=== PATIENT | male | born 1945 | race Hispanic/Latino ===

== ENCOUNTER 2017-11-10 14:09 | Emergency (ER) | payer MEDICARE, BC | END 2017-11-10 15:55 | disposition home or self-care (01) | LOC: ERS 14:09 | DX: T39.011A Poisoning by aspirin, accidental (unintentional), initial encounter (principal); T44.7X1A Poisoning by beta-adrenoreceptor antagonists, accidental (unintentional), initial encounter; T40.2X1A Poisoning by other opioids, accidental (unintentional), initial encounter; I48.91 Unspecified atrial fibrillation; F17.210 Nicotine dependence, cigarettes, uncomplicated; Z86.73 Personal history of transient ischemic attack (TIA), and cerebral infarction without residual deficits; Z79.82 Long term (current) use of aspirin; Z79.01 Long term (current) use of anticoagulants; Z79.899 Other long term (current) drug therapy | CPT/HCPCS: 99406 ==

== ENCOUNTER 2018-02-14 13:46 | Outpatient (CLI) | payer MEDICARE, BC | END 2018-02-14 13:47 | disposition home or self-care (01) | LOC: BICCT 13:46 | PROVIDERS: ATTEND Family Medicine | DX: M54.5 Low back pain; M47.26 Other spondylosis with radiculopathy, lumbar region; I70.90 Unspecified atherosclerosis | CPT/HCPCS: 72131 ==

== ENCOUNTER 2018-03-04 15:28 | Outpatient (CLI) | payer MEDICARE, BC ==
--- NOTE | 2018-03-04 16:10 | RAD ---
LUMBAR SPINE 3 VIEWS: Date: 03/04/18 HISTORY: Low back pain. COMPARISON: None. FINDINGS: Lateral radiographs of the lumbar spine were performed in neutral, flexion, and extension. Moderate d egenerative disc space height loss at L4-5 and L5-S1. Chronic-appearing anterior and superior end carolin te height loss at L3, approximately 10%. No significant listhesis. No translation with flexion or extension. Moderate intraspinous narrowing at L3-4 and L4-5. Moderate vascular calcifications of the aorta. IMPRESSION: Degenerative changes. No significant translation with flexion or extension. POS: [facility]
== END 2018-03-04 15:29 | disposition home or self-care (01) ==
LOC: TBSIIMAG 15:28
PROVIDERS: ATTEND Neurological Surgery
DX: M54.5 Low back pain (principal); M47.896 Other spondylosis, lumbar region
CPT/HCPCS: 72100

== ENCOUNTER 2018-10-08 07:56 | Observation (INO) | payer MEDICARE, BC ==
[2018-10-08 08:45] LABS: #Basophils 0.1 thou/uL (0.0-0.2); #Eosinphils 0.2 thou/uL (0.0-0.7); #Monocytes 0.4 thou/uL (0.11-0.59); #Neutrophils 4.3 thou/uL (1.40-6.50); %Basophils 0.8 % (0.0-1.0); %Eosinophils 2.2 % (0.0-10.0); %Lymphocytes 29.5 % (21.0-51.0); %Monocytes 5.3 % (0.0-10.0); %Neutrophils 62.2 % (42.0-75.0); Hemoglobin 13.6 g/dL (14.0-18.0); Mean Corpuscular HGB CONC 33.2 g/dL (32.0-36.0); Mean Corpuscular Hemoglobin 31.6 pg (27.0-31.0); Mean Corpuscular Volume 95.2 fL (78.0-98.0); Platelet Count 94 thou/uL (130-400); RBC Distribution Width 12.8 % (11.5-14.5); RBC Morphology Normal; Red Blood Cell (RBC) Count 4.31 mill/uL (4.70-6.10); White Blood Cell (WBC) Count 6.8 thou/uL (4.8-10.8)
[2018-10-08 08:46] LABS: ALT (SGPT) 19 U/L (8-55); AST (SGOT) 20 U/L (5-34); Alkaline Phosphatase 65 U/L (40-150); Anion Gap 12 mmol/L (10-20); BUN (Urea Nitrogen) 12 mg/dL (8.4-25.7); Bilirubin, Total 0.8 mg/dL (0.2-1.2); Calc. Creatinine Clearance 0 mL/min (70-130); Calcium 8.8 mg/dL (7.8-10.44); Carbon Dioxide 22 mmol/L (23-31); Chloride 108 mmol/L (98-107); Estimated GFR-MDRD 84; Globulin 2.9 g/dL (2.4-3.5); Glucose 132 mg/dL (83-110); Potassium 3.8 mmol/L (3.5-5.1); Protein, Total 6.9 g/dL (5.8-8.1); Sodium 138 mmol/L (136-145)
[2018-10-08 08:49] LABS: CKMB 2.7 ng/mL (0-6.6); Troponin I 0.026 ng/mL (< 0.028)
--- NOTE | 2018-10-08 09:05 | RAD ---
PORTABLE CHEST ONE VIEW: Date: 10-08-18 Time: 8:34 a.m. History: Shortness of breath. FINDINGS: Comparison made with exam of 04-21-15. Left sided AICD remains in place. The heart size is normal. The lungs are expanded with mild infiltra orlando in the right lung base. No pneumothoraces or large effusions are seen. POS: [facility]
[2018-10-08] MEDS ORDERED: methylPREDNISolone Sod Succ/PF 125 MG/2 ML VIAL ONE (10:02)
[2018-10-08 11:18] LABS: Troponin I 0.031 ng/mL (< 0.028)
[2018-10-08 14:34] LABS: Troponin I 0.017 ng/mL (< 0.028)
[2018-10-08 16:40] VITALS: BMI 25.7
[2018-10-08] MEDS ORDERED: Acetaminophen 325 MG TAB PO PRN (16:57)
[2018-10-08] MEDS ORDERED: Ondansetron ODT 4 MG TAB PO PRN (17:25)
[2018-10-08] MEDS ORDERED: Ondansetron PF 4 MG/2 ML Vial IVP PRN (17:25)
[2018-10-08] MEDS: Famotidine 20 MG TAB PO SCH (20:16)
[2018-10-08] MEDS: Nicotine 21 MG PATCH TD SCH (20:20)
[2018-10-08] MEDS ORDERED: Prevnar 13-Val Conj/PF 0.5 ML SYRINGE IM ONE (21:00)
--- NOTE | 2018-10-09 04:29 | HP ---
CHIEF COMPLAINT: Dyspnea and elevated troponin. HISTORY OF PRESENT ILLNESS: Mr. Bermudez is a pleasant 73-year-old male, who had presented to [facility] with a past medical history of atrial fibrillation with an AICD placement, chronic back pain, and previous history of CVA, who complains of shortness of breath that started earlier this morning when he was putting on the shoes. The patient has a 58-[id number]-ainw smoking history, who still continues to smoke 1-1/2 packs per day. He denies any cough, fever, chills, or recent illness. He denied chest pain. However, during his workup in the ER, his serial troponins were 0.026 with the next reading being elevated at 0.031. His EKG read as paced rhythm with a rate of 83 with no acute abnormalities for ischemia. His chest x-ray showed left-sided AICD with normal heart size, the lungs are expanded with mild infiltrates in the right lung base. No pneumothorax or large effusion seen. He had O2 saturations of 94% on room air. With his elevated troponin, it was ultimately decided that he would undergo further workup for his symptoms of shortness of breath, he was admitted to our telemetry for further evaluation and monitoring. PAST MEDICAL HISTORY: Positive for atrial fibrillation, AICD placement, chronic back pain, and previous CVA. FAMILY HISTORY: No history for heart disease. PAST SURGICAL HISTORY: Bilateral knee surgery, AICD placement. PSYCHIATRIC HISTORY: Denies any psychiatric history at this time. SOCIAL HISTORY: Denies any alcohol use; however, does admit to 1-1/2 packs per day cigarette smoker, denies any other drug use. ALLERGIES: NO KNOWN DRUG ALLERGIES. CURRENT MEDICATIONS: 1. Atorvastatin 20 mg p.o. daily. 2. Warfarin 5 mg p.o. daily. 3. Carvedilol 25 mg oral daily. REVIEW OF SYSTEMS: CONSTITUTIONAL: No fever, chills, or any generalized weakness. RESPIRATORY: No cough or sputum production, shortness of breath this morning, however, this has since improved. CARDIOVASCULAR: No chest pain or palpitations. GASTROINTESTINAL: No nausea, vomiting, or diarrhea. No abdominal pain. NEUROLOGIC: No dizziness, headache, or lightheadedness. GENITOURINARY: No frequency, urgency, or dysuria. MUSCULOSKELETAL: No edema. No trauma. No weakness. Does report previous partial amputation of right second digit from a bull lashing. LABORATORY DATA: WBC 6.8, RBC 4.31, hemoglobin 13.6, and platelet count 94. Sodium 138, potassium 3.8, creatinine 0.88. Estimated GFR 84. Glucose 132. AST 20, ALT 19, alkaline phosphatase 65. CK-MB 2.7. Troponin 0.026, 0.031, and 0.017. DIAGNOSTIC IMAGING: Chest x-ray showed lungs expanded, mild infiltrates in the right lung base, no pneumothorax or large effusion noted. PHYSICAL EXAMINATION: VITAL SIGNS: Blood pressure 137/84, pulse 84, respirations 20, temperature 97.6, and O2 saturation 94% on room air. GENERAL: The patient is alert and oriented x3, in no acute distress noted. HEENT: Head is atraumatic, normocephalic. Pupils equal and reactive to light. Extraocular muscles intact. Moist mucous membranes. NECK: Soft, supple. No bruits. No JVD noted. CARDIOVASCULAR: Normal rate and rhythm. Positive S1 and S2. No murmurs or gallops noted. RESPIRATORY: Scattered expiratory wheezes throughout with diminished breath sounds at the bases. No cough. ABDOMEN: Soft, nontender. Normal bowel sounds present. MUSCULOSKELETAL: Strength 5+ bilaterally, right index finger with partial amputation at DIP. SKIN: Warm, dry, and intact. No rashes. No redness noted. NEUROLOGIC: Cranial nerves 2 through 12 intact. No focal deficits noted. Strength 5+ bilaterally in upper and lower extremities. PSYCHIATRIC: Normal mood and affect. Optimal judgement. ASSESSMENT AND PLAN: 1. Dyspnea, likely secondary to chronic obstructive pulmonary disease from past history of smoking. He had received a dose of IV Solu-Medrol in the ER along with a DuoNeb treatment. We will likely continue symptomatic treatments with DuoNebs as needed. The patient remains at baseline. He is also afebrile with a normal white count. No further antibiotics needed at this time. We will monitor the patient's progress and further changes pending patient's progress. 2. Elevated troponin, this is likely a possible lab error; however, due to the patient's risk factors along with his shortness of breath, we will order a stress test to rule out cardiac etiology. 3. Atrial fibrillation, he is stable at this time, continue home dose of warfarin and monitor PT and INR. Further changes pending INR. 4. Hypertension. Continue carvedilol 25 mg p.o. daily. Monitor vital signs closely. 5. Hyperlipidemia. Continue atorvastatin 20 mg p.o. daily. 6. Nicotine dependence, further education given for smoking cessation. We will start the patient on nicotine patch during the hospital course. 7. Gastrointestinal prophylaxis with home dose of warfarin, gastrointestinal prophylaxis with Pepcid 20 mg p.o. b.i.d. along with Zofran as needed for nausea. Disposition and further medical management pending the patient's workup and results of stress test. The patient likely discharged within 24 to 48 hours. Job ID: [id number]
[2018-10-09 06:41] LABS: INR-International Normal Ratio 3.5; PTT 47.6 SEC (22.9-36.1)
[2018-10-09 06:59] LABS: Anion Gap 10 mmol/L (10-20); BUN (Urea Nitrogen) 13 mg/dL (8.4-25.7); Calc. Creatinine Clearance 105 mL/min (70-130); Calcium 8.8 mg/dL (7.8-10.44); Carbon Dioxide 22 mmol/L (23-31); Chloride 109 mmol/L (98-107); Estimated GFR-MDRD Greater than 90; Glucose 134 mg/dL (83-110); Potassium 4.2 mmol/L (3.5-5.1); Sodium 137 mmol/L (136-145)
[2018-10-09 07:34] LABS: Hemoglobin 12.8 g/dL (14.0-18.0); Mean Corpuscular HGB CONC 33.7 g/dL (32.0-36.0); Mean Corpuscular Volume 95.2 fL (78.0-98.0); Mean Platelet Volume 11.2 fL (7.4-10.4); Platelet Count 89 thou/uL (130-400); RBC Distribution Width 12.7 % (11.5-14.5); Red Blood Cell (RBC) Count 3.99 mill/uL (4.70-6.10); White Blood Cell (WBC) Count 8.9 thou/uL (4.8-10.8)
[2018-10-09 07:50] LABS: #Lymphocytes 1.3 thou/uL (1.20-3.40); #Monocytes 0.6 thou/uL (0.11-0.59); %Basophils 0.2 % (0.0-1.0); %Eosinophils 0.2 % (0.0-10.0); %Lymphocytes 14.3 % (21.0-51.0); %Monocytes 6.3 % (0.0-10.0); PLT Morphology Comment Appears Decreased
[2018-10-09] MEDS ORDERED: Carvedilol 25 MG TAB PO SCH (09:00)
[2018-10-09] MEDS: Atorvastatin Calcium 20 MG TAB PO SCH (12:59)
[2018-10-09] MEDS: Famotidine 20 MG TAB PO SCH ×2 (12:59→20:54)
--- NOTE | 2018-10-09 14:14 | NM ---
NUCLEAR MEDICINE CARDIAC MYOCARDIAL PERFUSION SPECT EJECTION FRACTION STUDY WALL MOTION CINE: Date: 10/09/18 HISTORY: 73-year-old male with history of atrial fibrillation and smoking, presents with dyspnea and elevated troponin. TECHNIQUE: Number of days: 1 Rest study: Tc99m sestamibi (Cardiolite) dose: 11.0 mCi Pharmacologic stress: Lexiscan dose: 0.4 mg Stress study: Tc99m sestamibi (Cardiolite) dose: 32.0 mCi FINDINGS: CARDIAC (MYOCARDIAL PERFUSION) SPECT There is left ventricular chamber dilation. There is a large, fixed region of decreased or absent upt marcie involving the inferior wall involving adjacent inferomedial wall, inferolateral wall, and apex. N o reversible perfusion defect is visualized. EJECTION FRACTION STUDY EF = 20% WALL MOTION CINE Global hypokinesis, especially the inferior wall. Poor systolic mural thickening. IMPRESSION: 1. Large infarction/scar at inferior wall. 2. Left ventricular chamber dilation. 3. Very low left ventricular ejection fraction of 20%. 4. No reversible ischemia identified. DU Enriquez POS: [facility]
--- NOTE | 2018-10-09 14:17 | STRESS ---
Acquisition Time: 2018-10-09 09:18:08 Total Exercise Time: 00:01:00 Test Indications: SHORTNESS OF BREATH Medications: Protocol: LEXISCAN Max HR: 096 BPM 66% of Pred: 145 BPM Max BP: 122/070 mmHG Max Work Load: 1.0 METS THE PATIENT WAS INJECTED WITH LEXISCAN. HE DID NOT DEVELOP CHEST PAIN. THERE WAS NO SIGNIFICANT ST DEPRESSION. AWAIT NUCLEAR IMAGES FOR DEFINITIVE DIAGNOSIS. Confirmed by CONSUELO BURR ([id number]), photography editor ANGELIC SHARMA ([id number]) on 10/09/2018 2:16:34 PM Referred By: SHLOMO METZ Confirmed By:CONSUELO BURR
[2018-10-09] MEDS ORDERED: Regadenoson 0.4 MG/5 ML SYRINGE ONE (15:25)
--- NOTE | 2018-10-09 16:08 | PDOC.PN ---
- Subjective Encounter Start Date: 10/09/18 Encounter Start Time: 11:00 Patient lying in bed with several family members, No events over night. He denies chest pain or shortness of breath. Stress test was done this morning and results show EF 20% with global hypokenesis. There was also a large inferior infarction/ scar noted, but no reversible defect noted. - Objective Resuscitation Status - Order Detail: 10/08/18 17:25 Resuscitation Status Routine Co-Sign Provider: Resuscitation Status: FULL: Full Resuscitation MAR Reviewed: Yes Vital Signs & Weight: Vital Signs (12 hours) Temp Pulse Resp BP Pulse Ox 10/09/18 07:17 98.0 F 79 20 100/67 94 L Weight Weight 195 lb 4.8 oz I&O: 10/08/18 10/09/18 10/10/18 06:59 06:59 06:59 Intake Total 780 Output Total 300 Balance 480 Result Diagrams: 10/09/18 06:00 10/09/18 06:00 Radiology Reviewed by me: Yes Phys Exam - Physical Examination Constitutional: NAD HEENT: PERRLA, moist MMs, oral pharynx no lesions Neck: no nodes, no JVD Respiratory: no wheezing Course breath sounds Cardiovascular: RRR, no rub Gastrointestinal: soft, non-tender, no distention Musculoskeletal: no edema, pulses present Distal right index finger amputation noted Neurological: moves all 4 limbs Lymphatic: no nodes Psychiatric: normal affect, A&O x 3 Skin: no rash, normal turgor, cap refill <2 seconds Dx/Plan (1) COPD (chronic obstructive pulmonary disease) Status: Acute (2) Systolic heart failure Code(s): I50.20 - UNSPECIFIED SYSTOLIC (CONGESTIVE) HEART FAILURE Status: Acute (3) Hypertension Code(s): I10 - ESSENTIAL (PRIMARY) HYPERTENSION Status: Acute (4) Atrial fibrillation Code(s): I48.91 - UNSPECIFIED ATRIAL FIBRILLATION Status: Acute - Plan cont current plan of care * Continue medical management, Stress test reviewed with patient consult placed for Cardiology services for further evaluation * Hold discharge and await cardiology recommendations * INR 3.5, will hold warfarin for now considering cardiology may want to cath patient * Further medical management pending patient progress
[2018-10-09] MEDS ORDERED: Warfarin Sodium 5 MG TAB PO SCH ×2 (17:00)
[2018-10-09] MEDS ORDERED: Warfarin Sodium 2 MG TAB PO SCH (17:00)
[2018-10-09] MEDS: Carvedilol 25 MG TAB PO SCH (17:35)
[2018-10-09] MEDS: Nicotine 21 MG PATCH TD SCH (20:54)
[2018-10-10 08:18] LABS: INR-International Normal Ratio 2.6; Prothrombin Time 27.6 SEC (12.0-14.7)
[2018-10-10] MEDS: Famotidine 20 MG TAB PO SCH ×2 (09:41→20:54)
[2018-10-10] MEDS: Digoxin 0.25 MG TAB PO SCH (09:42)
[2018-10-10] MEDS: Finasteride 5 MG TAB PO SCH (09:42)
[2018-10-10] MEDS: Atorvastatin Calcium 20 MG TAB PO SCH (09:42)
[2018-10-10] MEDS: Carvedilol 25 MG TAB PO SCH ×2 (09:42→17:13)
[2018-10-10] MEDS: Lisinopril 2.5 MG TAB PO SCH (09:42)
[2018-10-10] MEDS ORDERED: Warfarin Sodium 5 MG TAB PO SCH (17:00)
--- NOTE | 2018-10-10 17:04 | PDOC.PN ---
- Subjective Encounter Start Date: 10/10/18 Encounter Start Time: 11:00 Patient lying in bed with several family members at bedside. He denies chest pain, shortness of breath. Cardiology services following and awaiting history from Dr Martinez and YANIRA. He admits to noncompliance with medication at home. 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 - Objective Resuscitation Status - Order Detail: 10/08/18 17:25 Resuscitation Status Routine Co-Sign Provider: Resuscitation Status: FULL: Full Resuscitation MAR Reviewed: Yes Vital Signs & Weight: Vital Signs (12 hours) Temp Pulse Resp BP BP Pulse Ox 10/10/18 15:38 98.1 F 83 16 105/72 98 10/10/18 11:18 97.8 F 90 16 106/69 96 10/10/18 07:18 97.5 F L 96 20 149/84 H 98 10/10/18 05:13 87 18 103/68 96 Weight Weight 195 lb 4.8 oz I&O: 10/09/18 10/10/18 10/11/18 06:59 06:59 06:59 Intake Total 780 1700 Output Total 300 Balance 480 1700 Result Diagrams: 10/09/18 06:00 10/09/18 06:00 Radiology Reviewed by me: Yes Phys Exam - Physical Examination Constitutional: NAD HEENT: PERRLA, moist MMs, sclera anicteric, oral pharynx no lesions Edentulous Neck: no nodes, no JVD, supple Respiratory: no wheezing, no rales, clear to auscultation bilateral Cardiovascular: no significant murmur, no rub Gastrointestinal: soft, non-tender, no distention, positive bowel sounds Musculoskeletal: no edema, pulses present Amputation of distal end of right index Neurological: non-focal, normal sensation, moves all 4 limbs Lymphatic: no nodes Dx/Plan (1) COPD (chronic obstructive pulmonary disease) Status: Acute (2) Systolic heart failure Code(s): I50.20 - UNSPECIFIED SYSTOLIC (CONGESTIVE) HEART FAILURE Status: Acute (3) Hypertension Code(s): I10 - ESSENTIAL (PRIMARY) HYPERTENSION Status: Acute (4) Atrial fibrillation Code(s): I48.91 - UNSPECIFIED ATRIAL FIBRILLATION Status: Acute - Plan cont current plan of care, plan discussed w/ family * Continue medical management, he was started on ACEfor optimal treatment. * Monitor vitals and labs * Cardiology services following, await records
[2018-10-10] MEDS: Nicotine 21 MG PATCH TD SCH (20:54)
[2018-10-11] MEDS: Lisinopril 2.5 MG TAB PO SCH (09:07)
[2018-10-11] MEDS: Finasteride 5 MG TAB PO SCH (09:07)
[2018-10-11] MEDS: Famotidine 20 MG TAB PO SCH (09:10)
[2018-10-11] MEDS: Atorvastatin Calcium 20 MG TAB PO SCH (09:11)
[2018-10-11] MEDS: Digoxin 0.25 MG TAB PO SCH (09:11)
[2018-10-11] MEDS: Carvedilol 25 MG TAB PO SCH (09:33)
[2018-10-11] MEDS ORDERED: Carvedilol 3.125 MG TAB PO SCH ×2 (10:00→17:00)
[2018-10-11 11:41] VITALS: BP 110/69; TEMP 98.1
--- NOTE | 2018-10-12 14:59 | EKG ---
Test Reason : Blood Pressure : / mmHG Vent. Rate : 083 BPM Atrial Rate : 072 BPM P-R Int : 000 ms QRS Dur : 132 ms QT Int : 408 ms P-R-T Axes : 000 -43 136 degrees QTc Int : 479 ms Ventricular-paced rhythm Abnormal ECG Confirmed by ANAND CAM ([id number]), technical writer and editor ALONDRA FERNANDES ([id number]) on 10/12/2018 2:58:40 PM Referred By: Confirmed By:ANAND CAM
== END 2018-10-11 15:47 | disposition home or self-care (01) ==
LOC: ERS 07:56 → ERHOLD 12:03 → 2SW 16:17
PROVIDERS: ADMIT Family Medicine; ATTEND Family Medicine
DX: R06.02 Shortness of breath (principal); R79.89 Other specified abnormal findings of blood chemistry; G89.29 Other chronic pain; M54.9 Dorsalgia, unspecified; F17.210 Nicotine dependence, cigarettes, uncomplicated; J44.9 Chronic obstructive pulmonary disease, unspecified; E78.5 Hyperlipidemia, unspecified; I11.0 Hypertensive heart disease with heart failure; I50.20 Unspecified systolic (congestive) heart failure; I48.91 Unspecified atrial fibrillation; Z95.810 Presence of automatic (implantable) cardiac defibrillator; Z86.73 Personal history of transient ischemic attack (TIA), and cerebral infarction without residual deficits; Z79.01 Long term (current) use of anticoagulants; Z79.82 Long term (current) use of aspirin; Z79.899 Other long term (current) drug therapy; Z91.14 Patient's other noncompliance with medication regimen
CPT/HCPCS: 71045; 78452; 80048; 80053; 82553; 84484 ×2; 85025 ×2; 85610 ×2; 85730; 90662; 90670; 93005; 93017; 94640; 96374; 99285; A9500; G0008; G0009; G0378 ×3; 36415; 90471; J2785; J2930; J7620

== ENCOUNTER 2018-11-06 20:42 | Observation (INO) | payer MEDICARE, BC ==
[2018-11-06 21:26] LABS: INR-International Normal Ratio 2.7; PTT 47.4 SEC (22.9-36.1)
[2018-11-06 21:27] LABS: D-Dimer Test 0.63 *mcg/mL (0.27-0.43)
--- NOTE | 2018-11-06 21:34 | RAD ---
SINGLE VIEW OF THE CHEST: 11/06/18 COMPARISON: 10/08/18 HISTORY: Shortness of breath. FINDINGS: Single view of the chest shows a cardiomediastinal silhouette which is upper limits of normal in size . The pacemaker is unchanged in position. There is no evidence of consolidation, mass, or pleural eff usion. Decreased interstitial markings are present. IMPRESSION: No evidence of acute cardiopulmonary disease. POS: [facility]
[2018-11-06 21:38] LABS: Hemoglobin 13.2 g/dL (14.0-18.0); Mean Corpuscular HGB CONC 33.8 g/dL (32.0-36.0); Mean Corpuscular Hemoglobin 31.9 pg (27.0-31.0); Mean Corpuscular Volume 94.3 fL (78.0-98.0); Mean Platelet Volume 10.9 fL (7.4-10.4); Platelet Count 101 thou/uL (130-400); RBC Distribution Width 12.6 % (11.5-14.5); Red Blood Cell (RBC) Count 4.14 mill/uL (4.70-6.10); White Blood Cell (WBC) Count 5.9 thou/uL (4.8-10.8)
[2018-11-06 21:46] LABS: ALT (SGPT) 16 U/L (8-55); AST (SGOT) 23 U/L (5-34); Alkaline Phosphatase 64 U/L (40-150); Anion Gap 10 mmol/L (10-20); BUN (Urea Nitrogen) 20 mg/dL (8.4-25.7); Bilirubin, Total 0.4 mg/dL (0.2-1.2); Calc. Creatinine Clearance 0 mL/min (70-130); Calcium 8.7 mg/dL (7.8-10.44); Carbon Dioxide 25 mmol/L (23-31); Chloride 107 mmol/L (98-107); Estimated GFR-MDRD 75; Globulin 3.1 g/dL (2.4-3.5); Glucose 101 mg/dL (83-110); Potassium 4.1 mmol/L (3.5-5.1); Protein, Total 7.1 g/dL (5.8-8.1); Sodium 138 mmol/L (136-145)
[2018-11-06 21:48] LABS: #Eosinphils 0.2 thou/uL (0.0-0.7); #Lymphocytes 2.2 thou/uL (1.20-3.40); #Monocytes 0.4 thou/uL (0.11-0.59); #Neutrophils 3.1 thou/uL (1.40-6.50); %Basophils 0.7 % (0.0-1.0); %Eosinophils 3.2 % (0.0-10.0); %Lymphocytes 37.8 % (21.0-51.0); %Monocytes 6.3 % (0.0-10.0); PLT Morphology Comment Appears Decreased
[2018-11-06] MEDS ORDERED: Aspirin 325 MG TAB ONE (23:11)
[2018-11-06] MEDS ORDERED: Furosemide 40 MG/4 ML VIAL ONE (23:11)
[2018-11-07 01:07] LABS: Troponin I 0.028 ng/mL (< 0.028)
[2018-11-07] MEDS ORDERED: Ondansetron ODT 4 MG TAB SL PRN (01:15)
[2018-11-07] MEDS ORDERED: Ondansetron PF 4 MG/2 ML Vial IVP PRN (01:15)
[2018-11-07] MEDS ORDERED: Acetaminophen 325 MG TAB PO PRN (01:15)
[2018-11-07 01:52] VITALS: BMI 26.3
[2018-11-07] MEDS ORDERED: Guaifenesin DM 100-10/5 ML UDCUP PO PRN (03:08)
[2018-11-07] MEDS ORDERED: Bisacodyl 5 MG TAB PO PRN (03:08)
[2018-11-07] MEDS ORDERED: Senokot S 8.6-50 MG TAB PO PRN (03:08)
[2018-11-07] MEDS: Furosemide 40 MG/4 ML VIAL SLOW IVP SCH ×2 (05:10→13:41)
[2018-11-07 05:37] LABS: #Basophils 0.1 thou/uL (0.0-0.2); #Eosinphils 0.2 thou/uL (0.0-0.7); #Lymphocytes 2.3 thou/uL (1.20-3.40); #Monocytes 0.4 thou/uL (0.11-0.59); #Neutrophils 3.5 thou/uL (1.40-6.50); %Eosinophils 3.1 % (0.0-10.0); %Lymphocytes 34.9 % (21.0-51.0); %Monocytes 6.6 % (0.0-10.0); %Neutrophils 54.4 % (42.0-75.0); Hemoglobin 13.2 g/dL (14.0-18.0); Mean Corpuscular HGB CONC 33.8 g/dL (32.0-36.0); Mean Corpuscular Hemoglobin 31.7 pg (27.0-31.0); Mean Corpuscular Volume 93.6 fL (78.0-98.0); Mean Platelet Volume 11.6 fL (7.4-10.4); PLT Morphology Comment Appears Decreased; Platelet Count 94 thou/uL (130-400); RBC Distribution Width 12.8 % (11.5-14.5); RBC Morphology Normal; Red Blood Cell (RBC) Count 4.17 mill/uL (4.70-6.10); White Blood Cell (WBC) Count 6.4 thou/uL (4.8-10.8)
[2018-11-07 05:38] LABS: Troponin I 0.028 ng/mL (< 0.028)
[2018-11-07 05:40] LABS: Anion Gap 13 mmol/L (10-20); BUN (Urea Nitrogen) 21 mg/dL (8.4-25.7); Calc. Creatinine Clearance 92 mL/min (70-130); Calcium 9.1 mg/dL (7.8-10.44); Carbon Dioxide 26 mmol/L (23-31); Chloride 107 mmol/L (98-107); Estimated GFR-MDRD 87; Glucose 100 mg/dL (83-110); Potassium 3.8 mmol/L (3.5-5.1); Sodium 142 mmol/L (136-145)
[2018-11-07 06:23] LABS: Digoxin Less than 0.15 ng/mL (0.8-2.0)
--- NOTE | 2018-11-07 07:33 | HP ---
CHIEF COMPLAINT: Shortness of breath. HISTORY OF PRESENT ILLNESS: This is a 73-year-old male with past medical history of atrial fibrillation, status post AICD, chronic back pain, and CVA, presented with shortness of breath. The patient was brought in by EMS. Per records, the patient's EKG was showing some arrhythmias and the patient's pacemaker kicked in and the patient started having shortness of breath, therefore EMS was called and the patient was transported to our facility to be further evaluated and treated. En route to our hospital, the patient received 2 DuoNeb treatments. The patient does not have home oxygen. The patient was recently admitted into our hospital on 10/08/2018 and during that time, the patient was admitted for dyspnea, likely secondary to chronic obstructive pulmonary disease. At this point, the patient denies any chest pain, palpitations, abdominal pain, dysuria, hematuria, constipation, diarrhea, fevers, chills, dizziness, nausea, or vomiting. However, the patient stated that he had some shortness of breath. REVIEW OF SYSTEMS: Positive for shortness of breath. Otherwise as documented in the HPI, all other systems were reviewed and are negative. PAST MEDICAL HISTORY: Positive for atrial fibrillation, status post AICD; chronic back pain; and CVA. FAMILY HISTORY: No history of heart disease. PAST SURGICAL HISTORY: Bilateral knee surgery, AICD placement. PSYCHIATRIC HISTORY: No psychiatric history. SOCIAL HISTORY: The patient denies alcohol use. However, the patient smokes 1-1/2 pack per day. The patient is a cigarette smoker. Denies any illicit drug use. ALLERGIES: NO KNOWN DRUG ALLERGIES. CURRENT MEDICATIONS: The patient takes; 1. Atorvastatin 20 mg p.o. daily. 2. Warfarin 5 mg p.o. daily. 3. Carvedilol 25 mg daily. PHYSICAL EXAMINATION: VITAL SIGNS: Temperature is 97.8, blood pressure is 111/81, respiratory rate is 18, and O2 saturation is 95%. GENERAL: The patient is lying in bed, able to speak in full sentences. He does not appear to be in any acute distress. HEENT: Normocephalic, atraumatic. Pupils are equally round and reactive to light. Extraocular movements are intact. No scleral icterus. Mucous membranes are moist. NECK: Supple, soft. No JVD is noted. Trachea is midline. CARDIAC: Positive S1 and S2. Regular rate and rhythm. No murmurs, no gallops, no rubs are appreciated. LUNGS: The patient had mild crackles at the lower bases bilaterally. No wheezing, No rales appreciated at the anterior lung payne. ABDOMEN: Soft, nontender, and nondistended with normal bowel sounds. EXTREMITIES: 5/5 upper extremity strength and 5/5 lower extremity strength. Right index finger with pastoral amputation at the DIP. Lower extremity has no edema noted. SKIN: Warm, dry, and intact. NEUROLOGIC: Cranial nerves II through XII grossly intact. No neurologic deficits noted. PSYCH: Normal mood and affect. LABORATORY DATA: WBC is 5.9, hemoglobin is 13.2, hematocrit is 39.0, MCV is 94.3, RDW is 12.6, and platelet count is 101. PT is 29.0, INR is 2.7, and PTT is 47.4. D-dimer is 0.63. Sodium is 138, potassium is 4.1, chloride is 107, carbon dioxide of 25, anion gap of 10, BUN is 20, and creatinine is 0.97. Troponin is 0.019. AST 23, ALT 16. BNP is 1294.1. ASSESSMENT AND PLAN: This is a 73-year-old male being admitted for; 1. Shortness of breath likely due to acute systolic congestive heart failure exacerbation. The patient does have history of an echo, which was done, that showed that the patient's ejection fraction is 20%. At this point, the patient has received Lasix. We will continue the patient on current management. We will monitor the patient closely. We will give the patient some DuoNeb treatments p.r.n. for the shortness of breath. We will continue the patient on carvedilol 3.125 mg, digoxin 0.25 mg, Lasix, and lisinopril. 2. Chronic obstructive pulmonary disease exacerbation. We will continue the patient on DuoNeb treatments, and we will start the patient on Levaquin. 3. History of atrial fibrillation. We will continue the patient on home dose of warfarin. 4. History of cerebrovascular accident. We will continue the patient on current management. 5. Tobacco abuse. At this point, we will start the patient on nicotine patch. We will continue the patient on this during the hospital course. 6. Hypertension. We will continue the patient on his home medication. 7. Hyperlipidemia. Continue the patient on his home medication. 8. Deep vein thrombosis and gastrointestinal prophylaxis. Job ID: [id number]
[2018-11-07] MEDS ORDERED: Carvedilol 3.125 MG TAB PO SCH (09:00)
[2018-11-07] MEDS ORDERED: Atorvastatin Calcium 20 MG TAB PO SCH (09:00)
[2018-11-07] MEDS ORDERED: Lisinopril 2.5 MG TAB PO SCH (09:00)
[2018-11-07] MEDS ORDERED: Famotidine/PF 20 mg/2ml Vial SLOW IVP SCH (09:00)
[2018-11-07] MEDS ORDERED: Finasteride 5 MG TAB PO SCH (09:00)
[2018-11-07] MEDS ORDERED: Famotidine 20 MG TAB PO SCH (09:00)
[2018-11-07] MEDS ORDERED: Enoxaparin Sodium 40 MG/0.4 ML SYRINGE SC SCH (09:00)
[2018-11-07] MEDS ORDERED: Digoxin 0.25 MG TAB PO SCH (09:00)
--- NOTE | 2018-11-07 09:00 | RAD ---
CHEST TWO VIEWS: History: Dyspnea. Comparison: 11-06-18 FINDINGS: Cardiac silhouette and pulmonary vasculature are unremarkable. Lungs remain hyperinflated. Mediastinu m is midline with multi-lead left subclavian cardiac electronic device. Calcified granulomata are con sistent with healed granulomatous disease. No confluent airspace consolidation, pneumothorax, or pleu ral fluid are apparent. monitoring and evaluation advisor leads overlie the chest. IMPRESSION: No active cardiopulmonary abnormalities are demonstrated. POS: [facility]
[2018-11-07 15:41] VITALS: BP 107/68; TEMP 98.4
[2018-11-07] MEDS ORDERED: Warfarin Sodium 7.5 MG TAB PO SCH (17:00)
--- NOTE | 2018-11-08 04:19 | DIS ---
DATE OF ADMISSION: 11/06/2018 DATE OF DISCHARGE: 11/07/2018 PRIMARY CARE PHYSICIAN: Damian Martinez MD OTHER PROVIDERS: [facility]. CHIEF COMPLAINT: Shortness of breath. PRINCIPAL DIAGNOSIS ON ADMISSION: Acute decompensation systolic congestive heart failure, with a background history of ejection fraction of 20% on prior echocardiogram. DISCHARGE DIAGNOSES: 1. Acute exacerbation of chronic systolic congestive heart failure, ejection fraction 20%, improved with diuretic therapy. 2. Chronic obstructive pulmonary disease, with mild exacerbation, improving, with subsequent discontinuation of antibiotics. 3. History of atrial fibrillation, on chronic Coumadin therapy. 4. History of cerebrovascular accident. 5. Tobacco dependence. Encouraged cessation. 6. Essential hypertension. 7. Dyslipidemia. PERTINENT LABORATORY DATA: BNP on admission 1294. INR 2.7. Cardiac biomarkers negative x3. HOSPITAL COURSE: Mr. Bermudez is a 73-year-old gentleman with a medical history of chronic systolic congestive heart failure with an ejection fraction in the 20% range. He has a history of AICD placement, chronic back pain, previous history of stroke. The patient presented with shortness of breath, transported via EMS to an emergency department, where he received DuoNebs. Notably has hospitalization in September 2018 at this facility for COPD exacerbation. On this hospital stay, his problem appeared to be more related to fluid retention. In speaking with the patient today, he does not take a chronic diuretic. I have prescribed Lasix 40 mg p.o. once a day and potassium 10 mEq p.o. once a day. I have asked him to see his primary care physician within the next 1 week for followup. Additionally, he follows up in the [facility], and is faithful to those appointments. His chest x-ray at the time of the admission on 11/06/2018 show pacemaker, no evidence of consolidation, mass, or pleural effusion, cardiomediastinal silhouette was noted to be in upper limits of normal, but no large volume overt fluid restriction or acute/severe pulmonary edema present. On my evaluation this evening, Mr. Bermudez says he is feeling great and wishes to go home. I have explained that a Cardiology consult was requested for him, he prefers to defer this to the outpatient setting. Based on his interval improvement relative to admission, he will be transitioned to home. At this time, appears stable for transition to outpatient setting, with followup for his congestive heart failure. PHYSICAL EXAMINATION: LUNGS: Clear on exam. HEART: Regular, rate/pace. ABDOMEN: Soft and nontender. EXTREMITIES: No significant lower extremity edema. DISPOSITION: Discharge is to home. DIET: Heart healthy, low sodium. ACTIVITY: As tolerated. DISCHARGE MEDICATIONS: 1. Lasix 40 mg p.o. once daily, prescription provided. 2. Potassium 20 mEq p.o. once daily, prescription provided. 3. Aspirin 81 mg p.o. once daily. 4. Atorvastatin 20 mg p.o. once daily. 5. Carvedilol 3.125 mg p.o. twice daily. 6. Digoxin 0.25 mg p.o. once daily. 7. Finasteride 5 mg p.o. once daily. 8. Lisinopril 2.5 mg p.o. once daily. 9. Warfarin 5 mg p.o. daily except Sunday and , at which time he takes 7.5 mg. All medications are the same with the exception of furosemide and potassium, which are new prescriptions. CONDITION ON DISCHARGE: Improved. DISCHARGE TIME: 35 minutes. Job ID: [id number]
[2018-11-08] MEDS ORDERED: Warfarin Sodium 5 MG TAB PO SCH (17:00)
--- NOTE | 2018-11-09 18:30 | EKG ---
Test Reason : CHEST PAIN Blood Pressure : / mmHG Vent. Rate : 122 BPM Atrial Rate : 122 BPM P-R Int : 174 ms QRS Dur : 132 ms QT Int : 304 ms P-R-T Axes : 000 -04 153 degrees QTc Int : 433 ms Demand pacemaker; interpretation is based on intrinsic rhythm Sinus tachycardia with Premature supraventricular complexes with occasional Premature ventricular com plexes and Fusion complexes Left bundle branch block Abnormal ECG Confirmed by CLIFFORD EDWARD DO ([id number]), school photograph editor ALONDRA FERNANDES ([id number]) on 11/09/2018 6:29:27 PM Referred By: Confirmed By:CLIFFORD EDWARD DO
== END 2018-11-07 19:19 | disposition home or self-care (01) ==
LOC: ERS 20:42 → 2SW 22:13
PROVIDERS: ADMIT Internal Medicine; ATTEND Internal Medicine
DX: I11.0 Hypertensive heart disease with heart failure (principal); I50.21 Acute systolic (congestive) heart failure; J44.1 Chronic obstructive pulmonary disease with (acute) exacerbation; I48.91 Unspecified atrial fibrillation; E78.5 Hyperlipidemia, unspecified; F17.210 Nicotine dependence, cigarettes, uncomplicated; Z95.810 Presence of automatic (implantable) cardiac defibrillator; Z86.73 Personal history of transient ischemic attack (TIA), and cerebral infarction without residual deficits; Z79.01 Long term (current) use of anticoagulants; Z79.82 Long term (current) use of aspirin; Z79.899 Other long term (current) drug therapy; Z98.890 Other specified postprocedural states
CPT/HCPCS: 71045; 71046; 80048; 80053; 80162; 83880; 84443; 84484 ×3; 85025 ×2; 85379; 85610; 85730; 93005; 96372; 96374; 96375; 96376; 99285; G0378 ×2; 36415; J1650; J1940; S0028

== ENCOUNTER 2018-12-05 17:08 | Emergency (ER) | payer MEDICARE, BC ==
[2018-12-05 17:58] LABS: #Basophils 0.1 thou/uL (0.0-0.2); #Eosinphils 0.3 thou/uL (0.0-0.7); #Lymphocytes 2.2 thou/uL (1.20-3.40); #Monocytes 0.5 thou/uL (0.11-0.59); #Neutrophils 4.4 thou/uL (1.40-6.50); %Basophils 0.7 % (0.0-1.0); %Eosinophils 4.2 % (0.0-10.0); %Lymphocytes 29.5 % (21.0-51.0); %Monocytes 6.2 % (0.0-10.0); %Neutrophils 59.4 % (42.0-75.0); Hemoglobin 13.7 g/dL (14.0-18.0); Mean Corpuscular HGB CONC 32.9 g/dL (32.0-36.0); Mean Corpuscular Hemoglobin 31.4 pg (27.0-31.0); Mean Corpuscular Volume 95.4 fL (78.0-98.0); Mean Platelet Volume 10.5 fL (7.4-10.4); Platelet Count 123 thou/uL (130-400); RBC Distribution Width 12.3 % (11.5-14.5); Red Blood Cell (RBC) Count 4.37 mill/uL (4.70-6.10); White Blood Cell (WBC) Count 7.4 thou/uL (4.8-10.8)
[2018-12-05 18:02] LABS: Platelet Morphology Comment Appears Decreased; RBC Morphology Normal
[2018-12-05 18:08] LABS: ALT (SGPT) 10 U/L (8-55); AST (SGOT) 17 U/L (5-34); Albumin 4.1 g/dL (3.4-4.8); Alkaline Phosphatase 74 U/L (40-150); Anion Gap 12 mmol/L (10-20); BUN (Urea Nitrogen) 19 mg/dL (8.4-25.7); Bilirubin, Total 0.5 mg/dL (0.2-1.2); CK (CPK) 121 U/L (30-200); Calc. Creatinine Clearance 0 mL/min (70-130); Carbon Dioxide 27 mmol/L (23-31); Chloride 101 mmol/L (98-107); Estimated GFR-MDRD 56; Globulin 3.6 g/dL (2.4-3.5); Glucose 96 mg/dL (83-110); Potassium 4.4 mmol/L (3.5-5.1); Protein, Total 7.7 g/dL (5.8-8.1); Sodium 136 mmol/L (136-145)
[2018-12-05 19:05] LABS: INR-International Normal Ratio 1.3; Prothrombin Time 16.2 SEC (12.0-14.7)
[2018-12-05] MEDS ORDERED: Furosemide 40 MG/4 ML VIAL ONE (19:07)
--- NOTE | 2018-12-05 20:24 | RAD ---
TWO VIEWS CHEST: 12/05/18 HISTORY: Dyspnea with exertion. PA and lateral views of the chest is obtained on 12/05/18. COMPARISON: Comparison made to a previous exam from 11/07/18. AP and lateral chest demonstrates a dual lead intracardiac defibrillator. No evidence of effusion, pn eumonia or pneumothorax seen. Pulmonary vasculature is unremarkable. IMPRESSION: Unremarkable two views chest. No acute intrathoracic abnormality seen. POS: [facility]
--- NOTE | 2018-12-07 23:03 | EKG ---
Test Reason : Blood Pressure : / mmHG Vent. Rate : 096 BPM Atrial Rate : 102 BPM P-R Int : 000 ms QRS Dur : 126 ms QT Int : 384 ms P-R-T Axes : 000 007 166 degrees QTc Int : 485 ms Electronic ventricular pacemaker Confirmed by DONNIE PIERCE, ROJELIO ([id number]), mapping editor ALONDRA FERNANDES ([id number]) on 12/07/2018 11:03:08 PM Referred By: Confirmed By:ROJELIO FIELDS MD
== END 2018-12-05 19:47 | disposition home or self-care (01) ==
LOC: ERS 17:08
DX: I50.9 Heart failure, unspecified (principal); I48.91 Unspecified atrial fibrillation; F17.210 Nicotine dependence, cigarettes, uncomplicated; Z86.73 Personal history of transient ischemic attack (TIA), and cerebral infarction without residual deficits; Z79.899 Other long term (current) drug therapy; Z79.01 Long term (current) use of anticoagulants; Z71.6 Tobacco abuse counseling
CPT/HCPCS: 71046; 80053; 82550; 83880; 84484; 85025; 85610; 93005; 94760; 96374; 99406; J1940

== ENCOUNTER 2018-12-24 14:52 | Emergency (ER) | payer MEDICARE, BC ==
[2018-12-24] MEDS ORDERED: HYDROcodone/Acetaminophen 5/325 mg Tablet ONE (15:35)
== END 2018-12-24 16:18 | disposition home or self-care (01) ==
LOC: ERS 14:52
DX: M54.5 Low back pain (principal); G89.29 Other chronic pain; I48.91 Unspecified atrial fibrillation; Z86.73 Personal history of transient ischemic attack (TIA), and cerebral infarction without residual deficits; Z87.891 Personal history of nicotine dependence; Z79.899 Other long term (current) drug therapy
CPT/HCPCS: 99283

== ENCOUNTER 2019-04-16 19:30 | Emergency (ER) | payer MEDICARE, BC ==
--- NOTE | 2019-04-16 20:26 | RAD ---
EXAM: CHEST ONE VIEW HISTORY: Dyspnea, shortness of breath. COMPARISON: 03/07/2018 FINDINGS: A triple lead left subclavian AICD device remains in place. The cardiac silhouette and pulmonary vasc ulature are within normal limits. Linear densities are seen at the lateral left lung base which may be related to minimal atelectasis. The lungs are otherwise clear. The osseous structures are intact. Vascular calcifications are seen in the thoracic aorta. There has been no significant interval change from prior exam. IMPRESSION: No acute cardiopulmonary process.
[2019-04-16 20:42] LABS: #Basophils 0.1 thou/uL (0.0-0.2); #Eosinphils 0.3 thou/uL (0.0-0.7); #Lymphocytes 3.8 thou/uL (1.20-3.40); #Monocytes 0.5 thou/uL (0.11-0.59); #Neutrophils 4.6 thou/uL (1.40-6.50); %Basophils 1.3 % (0.0-1.0); %Eosinophils 3.1 % (0.0-10.0); %Lymphocytes 40.9 % (21.0-51.0); %Monocytes 5.3 % (0.0-10.0); %Neutrophils 49.4 % (42.0-75.0); Mean Corpuscular HGB CONC 33.4 g/dL (32.0-36.0); Mean Corpuscular Volume 95.8 fL (78.0-98.0); Mean Platelet Volume 10.7 fL (7.4-10.4); Platelet Count 135 thou/uL (130-400); Red Blood Cell (RBC) Count 4.37 mill/uL (4.70-6.10); White Blood Cell (WBC) Count 9.2 thou/uL (4.8-10.8)
[2019-04-16 21:02] LABS: ALT (SGPT) 10 U/L (8-55); AST (SGOT) 14 U/L (5-34); Albumin 4.2 g/dL (3.4-4.8); Alkaline Phosphatase 72 U/L (40-150); Anion Gap 15 mmol/L (10-20); BUN (Urea Nitrogen) 17 mg/dL (8.4-25.7); Bilirubin, Total 0.4 mg/dL (0.2-1.2); CK (CPK) 65 U/L (30-200); Calc. Creatinine Clearance 0 mL/min (70-130); Calcium 9.2 mg/dL (7.8-10.44); Carbon Dioxide 23 mmol/L (23-31); Chloride 106 mmol/L (98-107); Estimated GFR-MDRD 72; Globulin 3.3 g/dL (2.4-3.5); Glucose 109 mg/dL (83-110); Potassium 3.9 mmol/L (3.5-5.1); Protein, Total 7.5 g/dL (5.8-8.1); Sodium 140 mmol/L (136-145)
[2019-04-16] MEDS ORDERED: Furosemide 40 MG/4 ML VIAL ONE (22:14)
== END 2019-04-16 22:30 | disposition home or self-care (01) ==
LOC: ERS 19:30
DX: I50.9 Heart failure, unspecified (principal); R11.2 Nausea with vomiting, unspecified; I49.9 Cardiac arrhythmia, unspecified; I48.91 Unspecified atrial fibrillation; F17.210 Nicotine dependence, cigarettes, uncomplicated; Z86.73 Personal history of transient ischemic attack (TIA), and cerebral infarction without residual deficits; Z79.899 Other long term (current) drug therapy; Z79.01 Long term (current) use of anticoagulants; Z71.6 Tobacco abuse counseling
CPT/HCPCS: 36415; 71045; 80053; 82550; 83605; 83880; 84484; 85025; 87040; 87149; 93005; 96374; 99406; J1940

== ENCOUNTER 2019-06-27 19:11 | Emergency (ER) | payer MEDICARE, BC ==
[2019-06-27 19:52] LABS: #Eosinphils 1.6 thou/uL (0.0-0.7); #Lymphocytes 2.1 thou/uL (1.20-3.40); #Monocytes 0.5 thou/uL (0.11-0.59); #Neutrophils 5.2 thou/uL (1.40-6.50); %Basophils 0.5 % (0.0-1.0); %Eosinophils 16.6 % (0.0-10.0); %Lymphocytes 22.5 % (21.0-51.0); %Monocytes 5.5 % (0.0-10.0); Hemoglobin 12.4 g/dL (14.0-18.0); Mean Corpuscular HGB CONC 33.7 g/dL (32.0-36.0); Mean Corpuscular Hemoglobin 31.3 pg (27.0-31.0); Mean Corpuscular Volume 92.9 fL (78.0-98.0); Mean Platelet Volume 10.3 fL (7.4-10.4); Platelet Count 126 thou/uL (130-400); RBC Distribution Width 12.1 % (11.5-14.5); Red Blood Cell (RBC) Count 3.97 mill/uL (4.70-6.10); White Blood Cell (WBC) Count 9.5 thou/uL (4.8-10.8)
[2019-06-27 19:57] LABS: Bacteria/HPF None Seen HPF (None Seen); Bilirubin Negative (Negative); Blood, Urine Trace (Negative); Clarity Clear (Clear); Glucose, Urine (Dipstick) Normal (Negative); Leukocyte Negative Leu/uL (Negative); Nitrite Negative (Negative); Protein, Urine (Dipstick) 10 mg/dL (Neg-Trace); Squamous Epithelial 0-3 HPF (0-3); Urobilinogen 3 mg/dL (Less than 2)
[2019-06-27 20:12] LABS: ALT (SGPT) 14 U/L (8-55); AST (SGOT) 18 U/L (5-34); Albumin 3.7 g/dL (3.4-4.8); Alkaline Phosphatase 75 U/L (40-150); Anion Gap 13 mmol/L (10-20); BUN (Urea Nitrogen) 17 mg/dL (8.4-25.7); Bilirubin, Total 0.6 mg/dL (0.2-1.2); CK (CPK) 118 U/L (30-200); Calc. Creatinine Clearance 0 mL/min (70-130); Calcium 8.6 mg/dL (7.8-10.44); Carbon Dioxide 25 mmol/L (23-31); Chloride 105 mmol/L (98-107); Estimated GFR-MDRD 73; Globulin 3.1 g/dL (2.4-3.5); Glucose 101 mg/dL (83-110); Potassium 3.9 mmol/L (3.5-5.1); Protein, Total 6.8 g/dL (5.8-8.1); Sodium 139 mmol/L (136-145)
--- NOTE | 2019-06-27 20:21 | CT ---
CT CHEST WITHOUT CONTRAST: 06/27/19 HISTORY: Trauma, fall, left sided pain. FINDINGS: Absence of IV contrast reduces the sensitivity of the exam particularly for evaluation of mediastinal , hilar and vascular structures. There are vascular calcifications without evidence of aneurysmal dilatation of the thoracic aorta. N o pericardial or left pleural effusions are seen. There is a small right pleural effusion. No pneumot horaces or pulmonary contusions are identified. A small bleb is seen in the right lower lobe. There a re degenerative changes in the spine. There is a fracture involving the left 11th rib. Upper abdomina l tomograms demonstrate a 7 mm low dense lesion in the liver, too small to characterize. IMPRESSION: 1. Small right pleural effusion. 2. Left 11th rib fracture. POS: MZA
== END 2019-06-27 21:57 | disposition home or self-care (01) ==
LOC: ERS 19:11
DX: I46.9 Cardiac arrest, cause unspecified (principal); J96.90 Respiratory failure, unspecified, unspecified whether with hypoxia or hypercapnia
CPT/HCPCS: 36415; 51701; 71250; 80053; 81003; 81015; 82550; 83605; 85025; 93005; 96360; 96361

== ENCOUNTER 2019-09-03 23:36 | Emergency (ER) | payer MEDICARE, BC ==
[2019-09-03] MEDS ORDERED: methylPREDNISolone Sod Succ/PF 125 MG/2 ML VIAL ONE (23:54)
[2019-09-04 00:24] LABS: #Eosinphils 1.1 thou/uL (0.0-0.7); #Lymphocytes 2.7 thou/uL (1.20-3.40); #Monocytes 0.5 thou/uL (0.11-0.59); #Neutrophils 4.4 thou/uL (1.40-6.50); %Basophils 0.4 % (0.0-1.0); %Eosinophils 12.5 % (0.0-10.0); %Lymphocytes 31.2 % (21.0-51.0); %Monocytes 6.1 % (0.0-10.0); %Neutrophils 49.9 % (42.0-75.0); Hemoglobin 13.2 g/dL (14.0-18.0); Mean Corpuscular Hemoglobin 30.6 pg (27.0-31.0); Mean Corpuscular Volume 92.6 fL (78.0-98.0); Mean Platelet Volume 11.2 fL (7.4-10.4); Platelet Count 122 thou/uL (130-400); RBC Distribution Width 13.2 % (11.5-14.5); Red Blood Cell (RBC) Count 4.33 mill/uL (4.70-6.10); White Blood Cell (WBC) Count 8.7 thou/uL (4.8-10.8)
[2019-09-04] MEDS ORDERED: Albuterol Sulfate 2.5 mg/3 ml Neb ONE (00:33)
[2019-09-04 00:40] LABS: ALT (SGPT) 12 U/L (8-55); AST (SGOT) 17 U/L (5-34); Albumin 4.1 g/dL (3.4-4.8); Alkaline Phosphatase 112 U/L (40-110); Anion Gap 12 mmol/L (10-20); BUN (Urea Nitrogen) 17 mg/dL (8.4-25.7); Bilirubin, Total 0.5 mg/dL (0.2-1.2); Calc. Creatinine Clearance 0 mL/min (70-130); Calcium 8.8 mg/dL (7.8-10.44); Carbon Dioxide 27 mmol/L (23-31); Chloride 103 mmol/L (98-107); Estimated GFR-MDRD 78; Globulin 3.2 g/dL (2.4-3.5); Glucose 112 mg/dL (83-110); Protein, Total 7.3 g/dL (5.8-8.1); Sodium 138 mmol/L (136-145)
--- NOTE | 2019-09-04 08:08 | RAD ---
PA AND LATERAL VIEWS CHEST: Date: 09/03/19 HISTORY: Cough, COPD. FINDINGS: Comparison made with exam of 06/08/19 and 12/05/18. Left-sided AICD remains in place. The heart size is normal. The lungs are well expanded without lobar consolidation, pneumothoraces, or pleural effusions. There are degenerative changes in the spine. IMPRESSION: No acute process. POS: ELLA
== END 2019-09-04 05:59 | disposition home or self-care (01) ==
LOC: ERS 23:36
DX: J44.1 Chronic obstructive pulmonary disease with (acute) exacerbation (principal); I49.9 Cardiac arrhythmia, unspecified; I48.91 Unspecified atrial fibrillation; Z86.73 Personal history of transient ischemic attack (TIA), and cerebral infarction without residual deficits; F17.210 Nicotine dependence, cigarettes, uncomplicated; Z79.899 Other long term (current) drug therapy; Z79.01 Long term (current) use of anticoagulants
CPT/HCPCS: 71046; 80053; 83880; 84484; 85025; 93005; 96374; J2930; J7611

== ENCOUNTER 2019-11-12 18:43 | Inpatient (IN) | payer MEDICARE, BC ==
--- NOTE | 2019-11-12 19:13 | RAD ---
EXAM: Portable chest PROVIDED CLINICAL HISTORY: Chest pain COMPARISON: 06/08/2019 FINDINGS: Cardiac and mediastinal silhouette is within normal limits. No focal consolidation, pleural fluid or pneumothorax evident. Atherosclerosis and left subclavian cardiac pacing device are redemonstrated. IMPRESSION: No evidence for an acute cardiopulmonary process.
[2019-11-12 19:19] LABS: Mean Corpuscular HGB CONC 33.6 g/dL (32.0-36.0); Mean Corpuscular Hemoglobin 31.2 pg (27.0-31.0); Mean Corpuscular Volume 92.9 fL (78.0-98.0); Mean Platelet Volume 11.8 fL (7.4-10.4); Platelet Count 89 thou/uL (130-400); RBC Distribution Width 12.6 % (11.5-14.5); Red Blood Cell (RBC) Count 4.49 mill/uL (4.70-6.10); White Blood Cell (WBC) Count 4.5 thou/uL (4.8-10.8)
[2019-11-12] MEDS ORDERED: Aspirin Chewable 81 MG TAB ONE (19:30)
[2019-11-12 19:35] LABS: Band 9 % (5-11); Lymphocytes 46 % (21-51); MDiff Complete? YES; Monocytes 7 % (0-10); Neutrophil 33 % (42-75); Platelet Morphology Comment Appears Decreased; RBC Morphology Normal; Reactive Lymphocytes 4 % (0-10)
[2019-11-12 19:38] LABS: ALT (SGPT) 21 U/L (8-55); AST (SGOT) 48 U/L (5-34); Albumin 4.2 g/dL (3.4-4.8); Alkaline Phosphatase 83 U/L (40-110); Anion Gap 17 mmol/L (10-20); BUN (Urea Nitrogen) 22 mg/dL (8.4-25.7); Bilirubin, Total 0.6 mg/dL (0.2-1.2); CK (CPK) 857 U/L (30-200); Calc. Creatinine Clearance 0 mL/min (70-130); Calcium 8.6 mg/dL (7.8-10.44); Carbon Dioxide 27 mmol/L (23-31); Chloride 100 mmol/L (98-107); Estimated GFR-MDRD 54; Glucose 137 mg/dL (83-110); Lipase 26 U/L (8-78); Potassium 3.6 mmol/L (3.5-5.1); Protein, Total 7.2 g/dL (5.8-8.1); Sodium 140 mmol/L (136-145)
[2019-11-12 19:50] LABS: INR-International Normal Ratio 1.1; PTT 42.6 SEC (22.9-36.1); Prothrombin Time 14.6 SEC (12.0-14.7)
--- NOTE | 2019-11-12 20:47 | PDOC.HHP ---
Hospitalist HPI - History of Present Illness Chest pain History of Present Illness: Patient is a 74 year old male with PMH atrial fibrillation, systolic CHF, pacemaker/AICD, chronic back pain, history of CVA, active tobacco use who presents to ED for chest pain. Chest pain is L sided, started today, no radiation, feels throbbing, no diaphoresis/shortness of breath/wheezing. Patient has been seen in hospital for elevated troponin last year, EF at that time was 20% with stress test not showing reversible defect. Dr Gonzalez saw and recommended medical management. 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 In ED, EKG paced with acute ST changes, troponin x 1 was 0.141, BNP 300 range, CK 857, AST 48, platelets 89, CXR without acute findings, Sound hospitalist service consulted for admission. Medications reviewed, on warfarin, digoxin, lisinopril, lasix and other medications per med rec. Vitals reviewed. EKG reviewed. Hospitalist ROS - Review of Systems Constitutional: denies: fever, chills, sweats, weakness, malaise, other Eyes: denies: pain, vision change, conjunctivae inflammation, eyelid inflammation, redness, other ENT: denies: ear pain, ear discharge, nose pain, nose discharge, nose congestion , mouth pain, mouth swelling, throat pain, throat swelling, other Respiratory: denies: cough, dry, shortness of breath, hemoptysis, SOB with excertion, pleuritic pain, sputum, wheezing, other Cardiovascular: reports: chest pain. denies: palpitations, orthopnea, paroxysmal noc. dyspnea, edema, light headedness, other Gastrointestinal: denies: nausea, vomiting, abdominal pain, diarrhea, constipation, melena, hematochezia, other Genitourinary: denies: dysuria, frequency, incontinence, hematuria, retention, other Musculoskeletal: denies: neck pain, shoulder pain, arm pain, back pain, hand pain, leg pain, foot pain, other Skin: denies: rash, lesions, asrah, bruising, other Neurological: denies: weakness, numbness, incoordination, change in speech, confusion, seizures, other Hospitalist History - Past Medical History Other Medical History: Past medical history includes cardiac history, arrhythmia, atrial fibrillation, Treated with a pacemaker, treated with an AICD, Past medical history includes musculoskeletal disorder, chronic back pain, Past medical history includes neurological disease, CVA,. - Past Surgical History Other Surgical History: Surgical history of orthopedic surgery, bilateral knees, pacemaker. - Family History Family History: reports: no pertinent history - Social History Other Social History: Patient denies alcohol use, Patient denies drug use, Patient currently uses tobacco, smokes cigarettes, Patient smokes 1.5 packs per day,. - Exam General Appearance: NAD, awake alert Eye: PERRL, anicteric sclera ENT: normocephalic atraumatic, no oropharyngeal lesions, moist mucosa Neck: supple, symmetric, no JVD, no thyromegaly, no lymphadenopathy, no carotid bruit Heart: RRR, no murmur, no gallops, no rubs, normal peripheral pulses Respiratory: CTAB, no wheezes, no rales, no ronchi, normal chest expansion, no tachypnea, normal percussion Gastrointestinal: soft, non-tender, non-distended, normal bowel sounds, no palpable masses, no hepatomegaly, no splenomegaly, no bruit Extremities: no cyanosis, no clubbing, no edema Skin: normal turgor, no lesions, no rashes Neurological: cranial nerve grossly intact, normal sensation to touch, no weakness, no focal deficits, no new deficit Musculoskeletal: normal tone, normal strength, no muscle wasting Psychiatric: normal affect, normal behavior, A&O x 3 Hospitalist Results - Labs Result Diagrams: 11/12/19 19:07 11/12/19 19:08 Lab results: WBC 4.5 thou/uL (4.8-10.8) L 11/12/19 19:07 Hgb 14.0 g/dL (14.0-18.0) 11/12/19 19:07 Hct 41.7 % (42.0-52.0) L 11/12/19 19:07 MCV 92.9 fL (78.0-98.0) 11/12/19 19:07 Plt Count 89 thou/uL (130-400) L 11/12/19 19:07 Band Neuts % (Manual) 9 % (5-11) 11/12/19 19:07 Sodium 140 mmol/L (136-145) 11/12/19 19:08 Potassium 3.6 mmol/L (3.5-5.1) 11/12/19 19:08 Chloride 100 mmol/L (98-107) 11/12/19 19:08 Carbon Dioxide 27 mmol/L (23-31) 11/12/19 19:08 BUN 22 mg/dL (8.4-25.7) 11/12/19 19:08 Creatinine 1.30 mg/dL (0.7-1.3) 11/12/19 19:08 Glucose 137 mg/dL (83-110) H 11/12/19 19:08 Calcium 8.6 mg/dL (7.8-10.44) 11/12/19 19:08 Total Bilirubin 0.6 mg/dL (0.2-1.2) 11/12/19 19:08 AST 48 U/L (5-34) H 11/12/19 19:08 ALT 21 U/L (8-55) 11/12/19 19:08 Alkaline Phosphatase 83 U/L (40-110) 11/12/19 19:08 Creatine Kinase 857 U/L (30-200) H 11/12/19 19:08 CK-MB (CK-2) 4.0 ng/mL (0-6.6) 11/12/19 19:07 Troponin I 0.141 ng/mL (< 0.028) H 11/12/19 19:07 B-Natriuretic Peptide 389.7 pg/mL (0-100) H 11/12/19 19:07 Serum Total Protein 7.2 g/dL (5.8-8.1) 11/12/19 19:08 Albumin 4.2 g/dL (3.4-4.8) 11/12/19 19:08 Lipase 26 U/L (8-78) 11/12/19 19:08 Additional comment: BP: 102/67 MAP: 78 Pulse: 93 Resp: 23 Temp: 98.8 (Oral) Pain: 1 O2 sat: 96 on (Room Air) Time: 11/12/2019 19:30. Medications reviewed, on warfarin, digoxin, lisinopril, lasix and other medications per med rec. Vitals reviewed. EKG reviewed. - EKG Interpretation EKG: paced, 93 bpm, no acute ST changes, PVC noted Hospitalist H&P A/P - Plan Plan: Patient is a 74 year old male with PMH atrial fibrillation, systolic CHF, pacemaker/AICD, chronic back pain, history of CVA, active tobacco use who presents to ED for chest pain. # atypical chest pain, elevated troponin - with history of afib, pacemaker, systolic CHF - admit to telemetry, observation status - trend troponin - consult workers compensation claims analyst cardiology - continue home medications once med rec complete # chronic systolic CHF - continue home medications once med rec complete # atrial fibrillation w/ pacemaker - consult cardiology - continue warfarin, trend INR - continue home medications once med rec complete # HTN history - continue home medications once med rec complete, PRN medications ordered
[2019-11-12] MEDS ORDERED: HYDROcodone/Acetaminophen 5/325 mg Tablet PO PRN (21:00)
[2019-11-12] MEDS ORDERED: Ondansetron ODT 4 MG TAB PO PRN (21:00)
[2019-11-12] MEDS ORDERED: Acetaminophen 325 MG TAB PO PRN (21:00)
[2019-11-12] MEDS ORDERED: Bisacodyl 5 MG TAB PO PRN (21:00)
[2019-11-12] MEDS ORDERED: Bisacodyl 10 MG SUPP PR PRN (21:00)
[2019-11-12] MEDS ORDERED: Warfarin Sodium 5 MG TAB PO SCH (21:30)
[2019-11-12] MEDS ORDERED: hydrALAZINE 20 MG/ML VIAL SLOW IVP PRN (21:40)
[2019-11-12 22:34] LABS: Troponin I 0.136 ng/mL (< 0.028)
[2019-11-13 04:20] LABS: #Lymphocytes 1.9 thou/uL (1.20-3.40); #Monocytes 0.6 thou/uL (0.11-0.59); #Neutrophils 1.8 thou/uL (1.40-6.50); %Basophils 0.2 % (0.0-1.0); %Eosinophils 0.5 % (0.0-10.0); %Lymphocytes 43.7 % (21.0-51.0); %Monocytes 13.3 % (0.0-10.0); %Neutrophils 42.2 % (42.0-75.0); Hemoglobin 13.1 g/dL (14.0-18.0); INR-International Normal Ratio 1.1; Mean Corpuscular HGB CONC 33.2 g/dL (32.0-36.0); Mean Corpuscular Hemoglobin 30.9 pg (27.0-31.0); Mean Corpuscular Volume 93.2 fL (78.0-98.0); Mean Platelet Volume 11.7 fL (7.4-10.4); Platelet Count 78 thou/uL (130-400); Prothrombin Time 14.5 SEC (12.0-14.7); RBC Distribution Width 12.7 % (11.5-14.5); Red Blood Cell (RBC) Count 4.26 mill/uL (4.70-6.10); White Blood Cell (WBC) Count 4.3 thou/uL (4.8-10.8)
[2019-11-13 04:39] LABS: ALT (SGPT) 19 U/L (8-55); AST (SGOT) 44 U/L (5-34); Albumin 3.7 g/dL (3.4-4.8); Alkaline Phosphatase 73 U/L (40-110); Anion Gap 16 mmol/L (10-20); BUN (Urea Nitrogen) 22 mg/dL (8.4-25.7); Bilirubin, Direct 0.3 mg/dL (0.1-0.3); Bilirubin, Total 0.5 mg/dL (0.2-1.2); CK (CPK) 790 U/L (30-200); Calc. Creatinine Clearance 0 mL/min (70-130); Calcium 8.2 mg/dL (7.8-10.44); Carbon Dioxide 26 mmol/L (23-31); Chloride 103 mmol/L (98-107); Estimated GFR-MDRD 61; Glucose 96 mg/dL (83-110); Magnesium 1.8 mg/dL (1.6-2.6); Potassium 3.6 mmol/L (3.5-5.1); Protein, Total 6.4 g/dL (5.8-8.1); Sodium 141 mmol/L (136-145)
[2019-11-13 04:42] LABS: Troponin I 0.102 ng/mL (< 0.028)
[2019-11-13] MEDS ORDERED: Aspirin 325 MG TAB PO SCH (09:00)
[2019-11-13] MEDS ORDERED: Enoxaparin Sodium 40 MG/0.4 ML SYRINGE SC SCH (09:00)
[2019-11-13] MEDS: Lisinopril 2.5 MG TAB PO SCH (10:39)
[2019-11-13] MEDS: Furosemide 40 MG TAB PO SCH (10:39)
[2019-11-13] MEDS: Carvedilol 3.125 MG TAB PO SCH ×2 (10:39→21:01)
[2019-11-13] MEDS: Finasteride 5 MG TAB PO SCH (10:39)
[2019-11-13] MEDS: Aspirin Chewable 81 MG TAB PO SCH (10:39)
[2019-11-13] MEDS: Digoxin 0.25 MG TAB PO SCH (10:39)
[2019-11-13 10:40] LABS: Troponin I 0.083 ng/mL (< 0.028)
[2019-11-13] MEDS: Potassium Chloride 10 MEQ TAB PO SCH (10:40)
[2019-11-13] MEDS: Atorvastatin Calcium 20 MG TAB PO SCH (11:31)
--- NOTE | 2019-11-13 13:38 | PDOC.HOSPP ---
- Subjective Encounter Date: 11/13/19 Encounter Time: 11:00 Subjective: no chest pain now has sob, says he quit smoking 2 days back - Objective Vital Signs & Weight: Vital Signs (12 hours) Temp Pulse Resp BP Pulse Ox 11/13/19 12:00 98.5 F 88 22 H 124/77 95 11/13/19 10:39 83 11/13/19 08:43 98.2 F 83 18 109/66 95 Result Diagrams: 11/13/19 04:00 11/13/19 04:00 Hospitalist ROS - Medication Medications: Active Medications Generic Name Dose Route Start Last Admin Trade Name Freq PRN Reason Stop Dose Admin Aspirin 81 mg 11/13/19 09:00 11/13/19 10:39 Aspirin Chewable PO 81 mg DAILY RAFFY Administration Atorvastatin Calcium 20 mg 11/13/19 09:00 11/13/19 11:31 Lipitor PO 20 mg DAILY RAFFY Administration Carvedilol 3.125 mg 11/13/19 09:00 11/13/19 10:39 Coreg PO 3.125 mg BID RAFFY Administration Digoxin 0.25 mg 11/13/19 09:00 11/13/19 10:39 Lanoxin PO 0.25 mg DAILY RAFFY Administration Enoxaparin Sodium 40 mg 11/13/19 09:00 11/13/19 10:32 Lovenox SC Not Given 09 RAFFY Finasteride 5 mg 11/13/19 09:00 11/13/19 10:39 Proscar PO 5 mg DAILY RAFFY Administration Furosemide 40 mg 11/13/19 09:00 11/13/19 10:39 Lasix PO 40 mg DAILY RAFFY Administration Lisinopril 2.5 mg 11/13/19 09:00 11/13/19 10:39 Zestril PO 2.5 mg DAILY RAFFY Administration Potassium Chloride 10 meq 11/13/19 09:00 11/13/19 10:40 Klor-Con 10 PO 10 meq DAILY RAFFY Administration - Exam General Appearance: awake alert Eye: PERRL, anicteric sclera ENT: no oropharyngeal lesions, moist mucosa Neck: supple, no JVD Heart: RRR, no murmur Respiratory: no wheezes, rhonchi Gastrointestinal: soft, non-tender, non-distended, normal bowel sounds Extremities: no cyanosis, no edema Neurological: cranial nerve grossly intact, no focal deficits Psychiatric: normal affect, A&O x 3 Hosp A/P (1) Ventricular tachycardia, nonsustained Code(s): I47.2 - VENTRICULAR TACHYCARDIA Status: Acute (2) Atrial fibrillation Code(s): I48.91 - UNSPECIFIED ATRIAL FIBRILLATION Status: Acute Qualifiers: Atrial fibrillation type: paroxysmal Qualified Code(s): I48.0 - Paroxysmal atrial fibrillation (3) Tobacco abuse Code(s): Z72.0 - TOBACCO USE Status: Chronic (4) COPD (chronic obstructive pulmonary disease) Status: Chronic Qualifiers: COPD type: chronic bronchitis (5) Hypertension Code(s): I10 - ESSENTIAL (PRIMARY) HYPERTENSION Status: Chronic Qualifiers: Hypertension type: essential hypertension Qualified Code(s): I10 - Essential (primary) hypertension (6) Systolic heart failure Code(s): I50.20 - UNSPECIFIED SYSTOLIC (CONGESTIVE) HEART FAILURE Status: Chronic Qualifiers: Heart failure chronicity: chronic Qualified Code(s): I50.22 - Chronic systolic (congestive) heart failure - Plan his [employer] pcm was interrogated in ER, has multiple episodes of afib with rvr going upto 200's per tech had nonsustained vtac on ER telemetry while he was sleeping D/w , will have his pcm battery replaced in am ( on 09/20/2019) no prior cath here, prior ef was 20% with inf wall hypokinesis. change status to inpatient will see patient may need amiodarone with caution due to ?underlying copd on asp, lipitor, coreg, digoxin, lisinopril and proscar will hold coumadin, last inr is 1.1 npo after midnight
[2019-11-13 15:28] VITALS: BMI 23.4
[2019-11-13] MEDS ORDERED: Warfarin Sodium 7.5 MG TAB PO SCH (17:00)
[2019-11-13] MEDS ORDERED: Warfarin Sodium 5 MG TAB PO SCH (17:00)
[2019-11-13 17:05] LABS: Troponin I 0.054 ng/mL (< 0.028)
[2019-11-13] MEDS ORDERED: Vancomycin HCl 1.5 GM in Sodium Chloride 0.9% 250 ML 300 ML IVPB SCH (17:15)
[2019-11-13] MEDS ORDERED: Communication Order-Pharmacy FS SCH (18:15)
--- NOTE | 2019-11-13 19:13 | CON ---
See Dr. Kern's Report for Cardiology consultation on this date. Job ID: [id number] MTDD
--- NOTE | 2019-11-13 19:28 | CON ---
DATE OF CONSULTATION: 11/13/2019 PRIMARY CARE PHYSICIAN: Damian Martinez MD CHIEF COMPLAINT: Chest discomfort. HISTORY OF PRESENT ILLNESS: Mr. 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 He was admitted yesterday with left-sided chest discomfort, which he described as a throbbing lateral in the left axillary area. The discomfort was constant, not exacerbated by exertion. Not associated with dyspnea or diaphoresis and was nonradiating. Interrogation of his LUBRICATING SPECIALIST-D shows normal function with device at elective replacement index. He had some episodes of nonsustained ventricular tachycardia. Troponin is 0.1. Platelets are decreased at 89. Creatinine is 1.3. I have seen him in the past; however, he has not seen a ballaster since [address] Kaiser Page at [facility]. He continues to see his primary care physician, Dr. Damian Martinez. PAST MEDICAL HISTORY: 1. Chronic atrial fibrillation. 2. 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 3. Nonsustained ventricular tachycardia. 4. Chronic systolic heart failure due to nonischemic cardiomyopathy. 5. Hypertension. 6. Tobacco abuse. 7. CVA. 8. Thrombocytopenia. 9. Restless legs syndrome. 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 Unclear as to other surgeries. He has had bilateral knee surgeries. ALLERGIES: NO KNOWN DRUG ALLERGIES. OUTPATIENT MEDICATIONS: 1. Aspirin 81 mg daily. 2. Lipitor 20 mg daily. 3. Digoxin 0.25 mg daily. 4. Finasteride 5 mg daily. 5. Warfarin 5 mg daily. 6. Carvedilol 3.125 mg b.i.d. 7. Lasix 40 mg daily. 8. Lisinopril 2.5 mg daily. 9. Potassium chloride 10 mEq daily. He has not been taking his warfarin, his INR on admission was 1.1. FAMILY HISTORY: Negative for sudden cardiac . SOCIAL HISTORY: , lives in [place] on [address] [place] [address] with his . He continues to smoke. CARDIAC IMAGING: Echocardiogram October 27, 2014, moderate biatrial enlargement. Left ventricular ejection fraction 25%. Normal valves. LABORATORY DATA: WBC 4.5, hemoglobin 14.0, and platelets 89,000. INR 1.1. Sodium 140, potassium 3.6, creatinine 1.3, glucose 137, AST 48, and ALT 21. Troponin 0.1 serially. IMPRESSION AND PLAN: 1. Atypical chest discomfort. Cardiac catheterization in 2008 showed luminal irregularities. 2. LUBRICATING SPECIALIST-D at elective replacement index. 3. Chronic systolic heart failure due to nonischemic cardiomyopathy, compensated. 4. Hypertension. 5. Chronic atrial fibrillation. Noncompliance with warfarin. Admission INR 1.1. RECOMMEND: 1. We discussed risks, benefits, and alternatives of LUBRICATING SPECIALIST-D generator replacement including, but not limited to, infection, need for device removal, myocardial infarction, stroke, , allergic reaction, and pain. We will plan to do this tomorrow. He is agreeable to proceed. 2. Consider changing to Joe as an outpatient. Job ID: [id number]
--- NOTE | 2019-11-13 20:01 | CON ---
DATE OF CONSULTATION: HISTORY OF PRESENT ILLNESS: Heath Bermudez is a 74-year-old male, who first presented here in August 2009 with shortness of breath and atrial fibrillation with ejection fraction of 20% to 25%. He underwent catheterization. He had no significant coronary artery disease. He did have a cerebellar CVA after catheterization. He was placed on Multaq in January 2010 and cardioverted. He did not hold sinus mechanism. Multaq was stopped in February 2010. A dual chamber Medtronic ICD was placed by Dr. Tyson in April 2010. This was upgraded to a [employer]athon biventricular ICD in April 2013. This was performed due to chronic right ventricular pacing. I saw him one time in August 2015 in the office. He complained of becoming dyspneic on exertion after walking 100 feet. He denied complaint of any chest discomfort at that time. He was to return with an echocardiogram, but that was never performed. I have not seen him since. He now presents complaining of 2 minutes of left-sided chest discomfort. He has had minimal elevation in his cardiac enzymes. Also, it has been discovered that his defibrillator went to elective replacement indicator on September 20, 2019. It does not sound as if he follows up with a president and chief operating officer nor follows up with the community services coordinator. PAST MEDICAL HISTORY: Cerebellar CVA after cardiac cath in August 2009. History of paroxysmal atrial fibrillation, on warfarin. However, his INR is 1.1. Normal coronary arteries in 2008. Nonischemic cardiomyopathy and hypercholesterolemia. PAST SURGICAL HISTORY: Left total knee replacement, dual-chamber ICD placement, upgrade to biventricular ICD in December 2012. MEDICATIONS: 1. Aspirin 81 daily. 2. Warfarin 5 mg and 7.5 mg. 3. Atorvastatin 20 daily. 4. Carvedilol 3.125 b.i.d. 5. Digoxin 0.25 daily. 6. Finasteride 5 mg daily. 7. Furosemide 40 daily. 8. Lisinopril 2.5 daily. 9. Potassium 10 mEq daily. ALLERGIES: NONE. SOCIAL HISTORY: The patient continues to smoke. He does not drink. Smokes about 1-1/2 packs per day. FAMILY HISTORY: Negative for coronary artery disease. REVIEW OF SYSTEMS: A 10-point review of systems is otherwise unremarkable. PHYSICAL EXAMINATION: VITAL SIGNS: Blood pressure 120/60, pulse of 67. HEENT: PERRL. NECK: Supple. CHEST: Clear. CARDIAC: S1 and S2 normal without any S3, S4, or murmurs. Carotid upstrokes normal without bruits. ABDOMEN: Normal bowel sounds without tenderness or organomegaly. EXTREMITIES: Reveal no clubbing, cyanosis, or edema. NEUROLOGIC: Grossly intact. SKIN: Warm and dry. LABORATORY DATA: EKG reveals ventricular pacing. He does have some episodes of nonsustained ventricular tachycardia. INR 1.1. Hemoglobin 13.1, hematocrit 39.7, white count 4300, platelets 78,000. Sodium 141, potassium 3.6, chloride 103, carbon dioxide 26, BUN 22, creatinine 1.16. Troponin I 0.136. Creatine kinase 857, CK -MB 4. TSH is normal. IMPRESSION: 1. Probable [id number] myocardial infarction, type 2. 2. History of nonischemic cardiomyopathy. Echocardiogram pending. 3. Hypercholesterolemia. 4. The patient continues to smoke. 5. Status post biventricular implantable cardioverter-defibrillator, reached elective replacement indicator on September 20. 6. Noncompliance with followups and possibly with medications with INR of 1.1, on warfarin. PLAN: Situation discussed with the patient. It is recommended that he undergo cardiac catheterization. Risks of this were discussed with the patient including , myocardial infarction, dye reaction, vascular injury, CVA, transfusion, limb loss, renal loss, etc. Also risk of intervention with PTCA and stent placement were discussed including , myocardial infarction, emergent CABG, restenosis, stent thrombosis, vessel perforation, etc. He understands and wishes to proceed. He has never had any gastrointestinal bleeding. He does not have any upcoming surgeries and a drug coated stent will be placed if needed. Also, his ICD will be changed out during this admission. Job ID: [id number] [facility]
[2019-11-14 04:46] LABS: Prothrombin Time 13.2 SEC (12.0-14.7)
[2019-11-14 05:13] LABS: Anion Gap 14 mmol/L (10-20); BUN (Urea Nitrogen) 25 mg/dL (8.4-25.7); CK (CPK) 489 U/L (30-200); Calc. Creatinine Clearance 62 mL/min (70-130); Calcium 8.5 mg/dL (7.8-10.44); Carbon Dioxide 29 mmol/L (23-31); Cardiac Risk 4.9 (Less than 4.5); Chloride 103 mmol/L (98-107); Cholesterol 123 mg/dl (< 200 Desired); Estimated GFR-MDRD 64; Glucose 103 mg/dL (83-110); HDL Cholesterol 25 mg/dL (>60 Neg Risk); LDL Cholesterol, Calculated 78 mg/dL; Potassium 3.9 mmol/L (3.5-5.1); Sodium 142 mmol/L (136-145); Triglycerides 102 mg/dL (Less than 150)
[2019-11-14 05:28] LABS: #Eosinphils 0.1 thou/uL (0.0-0.7); #Lymphocytes 1.9 thou/uL (1.20-3.40); #Monocytes 0.5 thou/uL (0.11-0.59); #Neutrophils 2.2 thou/uL (1.40-6.50); %Basophils 0.6 % (0.0-1.0); %Eosinophils 1.1 % (0.0-10.0); %Lymphocytes 40.2 % (21.0-51.0); %Monocytes 10.8 % (0.0-10.0); %Neutrophils 47.3 % (42.0-75.0); Hemoglobin 13.4 g/dL (14.0-18.0); Large Platelets SLIGHT; MDiff Complete? YES; Mean Corpuscular HGB CONC 33.3 g/dL (32.0-36.0); Mean Corpuscular Hemoglobin 30.7 pg (27.0-31.0); Mean Corpuscular Volume 92.3 fL (78.0-98.0); Mean Platelet Volume 12.3 fL (7.4-10.4); Platelet Count 73 thou/uL (130-400); Platelet Morphology Comment Appears Decreased; RBC Distribution Width 12.6 % (11.5-14.5); Red Blood Cell (RBC) Count 4.37 mill/uL (4.70-6.10); White Blood Cell (WBC) Count 4.6 thou/uL (4.8-10.8)
[2019-11-14] MEDS: Atorvastatin Calcium 20 MG TAB PO SCH (05:50)
[2019-11-14] MEDS: Potassium Chloride 10 MEQ TAB PO SCH (05:51)
[2019-11-14] MEDS: Aspirin Chewable 81 MG TAB PO SCH (05:51)
[2019-11-14] MEDS: Furosemide 40 MG TAB PO SCH (05:52)
[2019-11-14] MEDS: Lisinopril 2.5 MG TAB PO SCH (05:52)
[2019-11-14] MEDS: Digoxin 0.25 MG TAB PO SCH (05:52)
[2019-11-14] MEDS: Finasteride 5 MG TAB PO SCH (05:53)
[2019-11-14] MEDS: Carvedilol 3.125 MG TAB PO SCH ×2 (05:53→21:24)
[2019-11-14] MEDS ORDERED: Sodium Chloride 0.9% 1,000 ML IV SCH ×2 (06:00→07:55)
[2019-11-14] MEDS ORDERED: Heparin (Artline) 1,000 ML ONE (06:40)
[2019-11-14] MEDS ORDERED: Heparin 10,000 UNITS/1 ML VIAL ONE (06:40)
[2019-11-14] MEDS ORDERED: Fentanyl 100 MCG/2 ML VIAL ONE ×3 (07:28→10:57)
[2019-11-14] MEDS ORDERED: Midazolam HCl 2 mg/2 ml Vial ONE ×3 (07:28→10:58)
[2019-11-14] MEDS ORDERED: Nitroglycerin 0.4 MG TAB (25 Tab Bottle) SL PRN (07:52)
[2019-11-14] MEDS ORDERED: Acetaminophen/Codeine 30-300mg Tablet PO PRN ×2 (07:52)
[2019-11-14] MEDS ORDERED: Sodium Chloride 0.9% 200 ML IV PRN (07:52)
[2019-11-14] MEDS ORDERED: Iopamidol 370 76% 100 ML VIAL ONE (09:58)
[2019-11-14] MEDS ORDERED: Vancomycin HCl 500 MG VIAL ONE (10:37)
[2019-11-14] MEDS ORDERED: Gentamicin 80 MG/2 ML VIAL ONE (10:48)
[2019-11-14] MEDS ORDERED: CEFAZOLIN 1 GM VIAL ONE (10:48)
[2019-11-14] MEDS ORDERED: Warfarin Sodium 5 MG TAB PO SCH (17:00)
--- NOTE | 2019-11-14 17:06 | PDOC.HOSPP ---
- Subjective Encounter Date: 11/14/19 Encounter Time: 15:00 Subjective: no chest pain or palp feels better - Objective Vital Signs & Weight: Vital Signs (12 hours) Temp Pulse Resp BP BP Pulse Ox 11/14/19 11:40 98.6 F 67 16 126/76 95 11/14/19 08:25 95 11/14/19 07:45 98.5 F 69 18 122/65 95 11/14/19 05:52 75 127/81 Weight Weight 172 lb 11.2 oz I&O: 11/13/19 11/14/19 11/15/19 06:59 06:59 06:59 Intake Total 275 Balance 275 Result Diagrams: 11/14/19 04:26 11/14/19 04:26 Hospitalist ROS - Medication Medications: Active Medications Generic Name Dose Route Start Last Admin Trade Name Freq PRN Reason Stop Dose Admin Aspirin 81 mg 11/13/19 09:00 11/14/19 05:51 Aspirin Chewable PO 81 mg DAILY RAFFY Administration Carvedilol 3.125 mg 11/13/19 09:00 11/14/19 05:53 Coreg PO 3.125 mg BID RAFFY Administration Digoxin 0.25 mg 11/13/19 09:00 11/14/19 05:52 Lanoxin PO 0.25 mg DAILY RAFFY Administration Finasteride 5 mg 11/13/19 09:00 11/14/19 05:53 Proscar PO 5 mg DAILY RAFFY Administration Furosemide 40 mg 11/13/19 09:00 11/14/19 05:52 Lasix PO 40 mg DAILY RAFFY Administration Lisinopril 2.5 mg 11/13/19 09:00 11/14/19 05:52 Zestril PO 2.5 mg DAILY RAFFY Administration Potassium Chloride 10 meq 11/13/19 09:00 11/14/19 05:51 Klor-Con 10 PO 10 meq DAILY RAFFY Administration - Exam General Appearance: awake alert Eye: PERRL, anicteric sclera ENT: no oropharyngeal lesions, moist mucosa Neck: supple, no JVD Heart: RRR, no murmur Respiratory: no wheezes, no rales Gastrointestinal: soft, non-tender, non-distended, normal bowel sounds Extremities: no cyanosis, no edema Neurological: cranial nerve grossly intact, no focal deficits Psychiatric: A&O x 3 Hosp A/P (1) Ventricular tachycardia, nonsustained Code(s): I47.2 - VENTRICULAR TACHYCARDIA Status: Acute (2) Atrial fibrillation Code(s): I48.91 - UNSPECIFIED ATRIAL FIBRILLATION Status: Acute Qualifiers: Atrial fibrillation type: paroxysmal Qualified Code(s): I48.0 - Paroxysmal atrial fibrillation (3) Tobacco abuse Code(s): Z72.0 - TOBACCO USE Status: Chronic (4) COPD (chronic obstructive pulmonary disease) Status: Chronic Qualifiers: COPD type: chronic bronchitis (5) Hypertension Code(s): I10 - ESSENTIAL (PRIMARY) HYPERTENSION Status: Chronic Qualifiers: Hypertension type: essential hypertension Qualified Code(s): I10 - Essential (primary) hypertension (6) Systolic heart failure Code(s): I50.20 - UNSPECIFIED SYSTOLIC (CONGESTIVE) HEART FAILURE Status: Chronic Qualifiers: Heart failure chronicity: chronic Qualified Code(s): I50.22 - Chronic systolic (congestive) heart failure - Plan had nonsustained vtac on ER telemetry while he was sleeping, none on telemetry had cath this am showing mild cad, pcm battery change ef 20% with inf wall hypokinesis. may need amiodarone with caution due to ?underlying copd on asp, lipitor, coreg, digoxin, lisinopril and proscar will hold coumadin, last inr is 1.1 PT eval, if needed will get xray/CT of his pelvis, outpt ortho appt to help him ambulate better currently is using crutch on one side and a cane on the other side to mobilize. will optimize meds hemostable
[2019-11-14] MEDS ORDERED: Atorvastatin Calcium 40 MG TAB PO SCH (21:00)
[2019-11-15] MEDS ORDERED: Sodium Chloride 0.9% 250 ML IVPB SCH (00:30)
[2019-11-15 04:42] LABS: Prothrombin Time 13.4 SEC (12.0-14.7)
[2019-11-15 04:53] LABS: Anion Gap 12 mmol/L (10-20); BUN (Urea Nitrogen) 20 mg/dL (8.4-25.7); Calc. Creatinine Clearance 85 mL/min (70-130); Carbon Dioxide 28 mmol/L (23-31); Chloride 104 mmol/L (98-107); Estimated GFR-MDRD Greater than 90; Glucose 98 mg/dL (83-110); Magnesium 1.9 mg/dL (1.6-2.6); Potassium 3.9 mmol/L (3.5-5.1); Sodium 140 mmol/L (136-145)
[2019-11-15 05:35] LABS: #Lymphocytes 1.6 thou/uL (1.20-3.40); #Monocytes 0.4 thou/uL (0.11-0.59); #Neutrophils 2.2 thou/uL (1.40-6.50); %Basophils 0.3 % (0.0-1.0); %Lymphocytes 37.9 % (21.0-51.0); %Monocytes 9.5 % (0.0-10.0); %Neutrophils 51.3 % (42.0-75.0); Hemoglobin 12.9 g/dL (14.0-18.0); Large Platelets SLIGHT; MDiff Complete? YES; Mean Corpuscular HGB CONC 33.6 g/dL (32.0-36.0); Mean Corpuscular Hemoglobin 30.9 pg (27.0-31.0); Mean Corpuscular Volume 92.2 fL (78.0-98.0); Mean Platelet Volume 12.9 fL (7.4-10.4); Platelet Count 56 thou/uL (130-400); Platelet Morphology Comment Appears Decreased; RBC Distribution Width 12.6 % (11.5-14.5); Red Blood Cell (RBC) Count 4.17 mill/uL (4.70-6.10); White Blood Cell (WBC) Count 4.3 thou/uL (4.8-10.8)
[2019-11-15] MEDS: Carvedilol 3.125 MG TAB PO SCH (08:05)
[2019-11-15] MEDS: Finasteride 5 MG TAB PO SCH (08:05)
[2019-11-15] MEDS: Potassium Chloride 10 MEQ TAB PO SCH (08:05)
[2019-11-15] MEDS: Aspirin Chewable 81 MG TAB PO SCH (08:06)
[2019-11-15] MEDS: Digoxin 0.25 MG TAB PO SCH (08:06)
[2019-11-15] MEDS: Lisinopril 2.5 MG TAB PO SCH (08:06)
[2019-11-15 08:09] VITALS: TEMP 99.2
[2019-11-15] MEDS ORDERED: Apixaban 5 MG TAB PO SCH (09:00)
[2019-11-15 09:43] VITALS: BP 96/60
[2019-11-15 12:29] LABS: Hep B Surf Ag Non-Reactive S/CO (NonReactive)
[2019-11-15 12:45] LABS: HBSAg Index 0.22 S/CO (0-0.99); Hep C IgG Ab Non-Reactive (NonReactive); Hep C Index 0.09 S/CO (0-0.79)
[2019-11-15 12:46] LABS: Hep A IgM AB Non-Reactive (NonReactive)
[2019-11-15 12:47] LABS: Hep A IgM S/CO 0.38 S/CO (0-0.79)
[2019-11-15 12:48] LABS: HBCM Index 0.12 S/CO (0-0.79); Hepatitis B Core IgM Abs Non-Reactive (NonReactive)
--- NOTE | 2019-11-16 12:59 | DIS ---
DATE OF ADMISSION: 11/13/2019 DATE OF DISCHARGE: 11/15/2019 DISCHARGE DISPOSITION: Home. PRIMARY DISCHARGE DIAGNOSES: 1. Nonsustained ventricular tachycardia. 2. Atrial fibrillation with rapid ventricular response, status post replacement of [employer] battery for his AICD. 3. Chronic congestive heart failure with ejection fraction of 20% with no acute exacerbation. 4. Hypertension. 5. Chronic obstructive pulmonary disease. 6. Tobacco abuse. PROCEDURES DONE DURING HOSPITALIZATION: The patient has had coronary angiogram done by Dr. Kern on 11/14/2019 which showed mild CAD with 20% stenosis in LAD, 10 % stenosis in 1st obtuse marginal, RCA was normal. The patient had replacement of AICD generator by Dr. Tyson on 11/14/2019. Echo with 2D Doppler showed an EF of 20% to 25%, inferior akinesis, severe global hypokinesis, LV thrombus could not be ruled out, dilated LV. Chest x-ray done showed no evidence of acute cardiopulmonary abnormality. H and H 13 and 38. Platelet count is 56 which is chronically low. MCV is 92, total cholesterol 123, triglycerides 102, LDL 78, HDL 25. Acute hepatitis panel was negative. DISCHARGE MEDICATIONS: 1. Digoxin 0.25 mg p.o. daily. 2. Finasteride 5 mg p.o. daily. 3. Tylenol No.3 q.4 hourly p.r.n. 4. Eliquis 5 mg twice daily. 5. Lipitor 40 mg p.o. at bedtime. 6. Coreg 3.125 mg twice daily. 7. Lisinopril 2.5 mg daily. 8. K-Dur 10 mEq p.o. daily. ALLERGIES: NO KNOWN DRUG ALLERGIES. INPATIENT CONSULTS: 1. Dr. Tyson for Electrophysiology. 2. Dr. Kern for Cardiology. DISCHARGE PLAN: The patient is to follow up with Dr. Damian Martinez, his primary care physician, in [address] Leonard Tyson in 10 days, and he also needs to follow up with [facility]. BRIEF COURSE DURING HOSPITALIZATION: The patient initially came to ER with complaints of chest pain. The patient had nonsustained VT while he was waiting for a bed in the ER. [employer] pacemaker was interrogated which revealed AFib with RVR on multiple occasions with rates going up to as high as 200 and up. Also, his pacemaker generator battery was . The patient has known history of nonischemic cardiomyopathy with EF of 20%. His last coronary angiogram was more than 10 years back. In view of indeterminate troponin and current complaints of chest pain, the patient has had consultation with Dr. Kern for Cardiology and Dr. Leonard Tyson for Electrophysiology. He has had coronary angiogram done which did not reveal any significant stenosis except for mild CAD. He has had his pacemaker generator battery changed out by Dr. Tyson. Post this procedure, the patient has done remarkably well. He was counseled with regard to medication compliance. He was also counseled regarding complete cessation of tobacco use. The patient uses a crutch on one side and a cane on the other side due to severe back pain. PT was mobilizing him with a rolling walker, but the patient has refused to use the same on discharge. He needs close followup with his primary care physician. The patient was advised to use the crutch on the right side, not left side, which if he did would disrupt the recent incision on the pacemaker site in the left infraclavicular area. The patient is clearly aware of this. Please note I have seen and examined the patient on the day of discharge. Job ID: [id number] [facility]
--- NOTE | 2019-11-17 12:58 | PQF ---
DATE: 11-17-18 ATTN: DR. MARCO ASKEW Please exercise your independent, professional judgment in responding to the clarification form. Clinical indicators are provided on the bottom of this form for your review Please check appropriate box(s) to clarify if the following diagnosis has been ruled in or ruled out: NONSTEMI TYPE 2 [ x] Ruled in diagnosis [ ] Continue to treat [ x] Resolved [ ] Ruled out diagnosis [ ] Other diagnosis [ ] Unable to determine In addition, please specify: Present on Admission (POA): [x ] Yes [ ] No [ ] Unable to determine For continuity of documentation, please document condition throughout progress notes and discharge summary. Thank You. CLINICAL INDICATORS - SIGNS / SYMPTOMS / LABS / RESULTS AND LOCATION IN MR: ER NOTES 11-13-19: EVALUATION OF CHEST PAIN ER DX 11-13-19: CP R/O TX, INDETERMINATE TROPONIN CONSULT NOTE DR. SANTIAGO 11-13-19: PROBABLE NON-ST ELEVATION MYOCARDIAL INFARCTION, TYPE 2 TROPONIN: 11-12-19: 0.141, 0.136 11-13-19: 0.102, 0.083, 0.054 RISK FACTORS / RESULTS AND LOCATION IN MR: ER NOTES 11-13-19: HX OF ARRHYTHMIA, ATRIAL FIB, PACEMAKER, TREATED WITH AN AICD, SMOKER TREATMENTS / RESULTS AND LOCATION IN MR: ER NOTES 11-13-19: ASPIRIN PO OPERATIVE NOTE 11-14-19: BI-VENTRICULAR DEFIBRILLATOR REMOVAL AND GENERATOR REPLACEMENT CARDIOLOGY CONSULT 11-13-19 (This form is maintained as a part of the permanent medical record) 2014 [employer]. All Rights Reserved JENNIFER [email or web address] Office: [phone] [facility]
== END 2019-11-15 14:05 | disposition home or self-care (01) | DRG 245 ==
LOC: ERS 18:43 → ERHOLD 19:57 → OBSVTOIN 11-13 13:24 → 2NO 11-13 15:16
PROVIDERS: ADMIT Internal Medicine; ATTEND Internal Medicine
PROC: 4A023N7 Measurement of Cardiac Sampling and Pressure, Left Heart, Percutaneous Approach (ICD-10-PCS; principal; 2019-11-13)
PROC: 0JH608Z Insertion of Defibrillator Generator into Chest Subcutaneous Tissue and Fascia, Open Approach (ICD-10-PCS; 2019-11-13)
PROC: 0JPT0PZ Removal of Cardiac Rhythm Related Device from Trunk Subcutaneous Tissue and Fascia, Open Approach (ICD-10-PCS; 2019-11-13)
PROC: B2111ZZ Fluoroscopy of Multiple Coronary Arteries using Low Osmolar Contrast (ICD-10-PCS; 2019-11-13)
DX: I47.2 Ventricular tachycardia (principal); I21.A1 Myocardial infarction type 2; I50.22 Chronic systolic (congestive) heart failure; I11.0 Hypertensive heart disease with heart failure; J44.9 Chronic obstructive pulmonary disease, unspecified; F17.200 Nicotine dependence, unspecified, uncomplicated; I25.10 Atherosclerotic heart disease of native coronary artery without angina pectoris; Z71.6 Tobacco abuse counseling; Z86.73 Personal history of transient ischemic attack (TIA), and cerebral infarction without residual deficits; R07.89 Other chest pain; G25.81 Restless legs syndrome; I48.20 Chronic atrial fibrillation, unspecified; E78.00 Pure hypercholesterolemia, unspecified; Z91.19 Patient's noncompliance with other medical treatment and regimen
CPT/HCPCS: 33264; 36415; 71045; 80048; 80053; 80061; 80074; 80076; 82550; 82553; 83690; 83735; 83880; 84484; 85025; 85347; 85610; 85730; 93005; 93306; 93454; 99152; 99153; C1769; C1882; J0690; J1580; J1644; J2250; J3010; J3370; J7050; Q9967

== ENCOUNTER 2020-01-01 11:13 | Outpatient (CLI) | payer MEDICARE, BC ==
--- NOTE | 2020-01-01 12:08 | RAD ---
EXAM: Lumbar spine 5 views: HISTORY: Low back pain for many years COMPARISON: 03/04/2018 FINDINGS: No evidence for acute fracture or dislocation involving the visualized spine. Worsening disc osteophytosis at L4-L5 and L5-S1. No evidence for malalignment. No evidence for a bone lesion. IMPRESSION: Spondylosis. Some progressive spondylosis. No fracture or dislocation.
--- NOTE | 2020-01-01 14:11 | RAD ---
THORACIC SPINE SERIES THREE VIEWS: 01/01/20 HISTORY: Low back pain. Vertebral bodies are normal in height. There are degenerative osteophytes along the course of the spi ne. Pedicles are intact. IMPRESSION: Arthritic changes of the spine. No acute findings. POS: TPC
== END 2020-01-01 11:14 | disposition home or self-care (01) ==
LOC: BICRAD 11:13
PROVIDERS: ATTEND Internal Medicine Rheumatology
DX: M54.5 Low back pain (principal); M47.816 Spondylosis without myelopathy or radiculopathy, lumbar region; M46.94 Unspecified inflammatory spondylopathy, thoracic region
CPT/HCPCS: 72072; 72110

== ENCOUNTER 2020-02-14 10:52 | Emergency (ER) | payer MEDICARE, BC, OTHER ==
[2020-02-14] MEDS ORDERED: Magnesium 2 GM/50 ML BAG (IN WATER) ONE (11:15)
[2020-02-14] MEDS ORDERED: Dexamethasone 10 MG/ML VIAL ONE (11:15)
[2020-02-14 11:52] LABS: Hemoglobin 11.5 g/dL (14.0-18.0); Mean Corpuscular HGB CONC 33.3 g/dL (32.0-36.0); Mean Corpuscular Hemoglobin 32.5 pg (27.0-31.0); Mean Corpuscular Volume 97.7 fL (78.0-98.0); Mean Platelet Volume 11.6 fL (7.4-10.4); Platelet Count 95 thou/uL (130-400); RBC Distribution Width 12.3 % (11.5-14.5); Red Blood Cell (RBC) Count 3.55 mill/uL (4.70-6.10); White Blood Cell (WBC) Count 5.9 thou/uL (4.8-10.8)
--- NOTE | 2020-02-14 11:57 | RAD ---
PORTABLE CHEST: DATE: 02/14/2020. PROVIDED CLINICAL HISTORY: Shortness of breath. FINDINGS: Comparison is made with the study dated 11/12/2019. Cardiac and mediastinal silhouette is unchanged in appearance. Left subclavian cardiac pacing device is noted with lead tips overlying expected locati ons of RA, RV, and coronary sinus. Prominence of the pulmonary vasculature and pulmonary interstitiu m is noted. There is hazy opacity overlying the right lower lung zone that may reflect airspace dise ase. There is no evidence for pneumothorax or large pleural effusion. IMPRESSION: 1. Right lower lung zone opacity likely reflecting airspace disease. Correlate with concerns for pn eumonia. Followup is recommended. 2. Cardiomegaly and prominence of the pulmonary vasculature. POS: OLY
[2020-02-14 11:59] LABS: ALT (SGPT) 14 U/L (8-55); AST (SGOT) 14 U/L (5-34); Albumin 3.3 g/dL (3.4-4.8); Alkaline Phosphatase 69 U/L (40-110); Anion Gap 17 mmol/L (10-20); BUN (Urea Nitrogen) 9 mg/dL (8.4-25.7); Bilirubin, Total 0.8 mg/dL (0.2-1.2); CK (CPK) 34 U/L (30-200); Calc. Creatinine Clearance 0 mL/min (70-130); Carbon Dioxide 19 mmol/L (23-31); Chloride 110 mmol/L (98-107); Estimated GFR-MDRD Greater than 90; Globulin 1.8 g/dL (2.4-3.5); Glucose 140 mg/dL (83-110); Lipase 8 U/L (8-78); Potassium 3.1 mmol/L (3.5-5.1); Protein, Total 5.1 g/dL (5.8-8.1); Sodium 143 mmol/L (136-145)
[2020-02-14 12:14] LABS: #Eosinphils 0.2 thou/uL (0.0-0.7); #Lymphocytes 1.5 thou/uL (1.20-3.40); #Monocytes 0.3 thou/uL (0.11-0.59); %Basophils 0.3 % (0.0-1.0); %Lymphocytes 24.9 % (21.0-51.0); %Monocytes 4.5 % (0.0-10.0); %Neutrophils 67.4 % (42.0-75.0); MDiff Complete? YES; Ovalocytes SLIGHT = 2-5 cells (100X) (0-1/hpf); Platelet Morphology Comment Appears Decreased; Polychromasia SLIGHT = 2-3 cells (100X) (0-2/hpf)
[2020-02-14 12:21] LABS: CKMB 1.6 ng/mL (0-6.6)
--- NOTE | 2020-02-18 14:03 | EKG ---
Test Reason : SOB Blood Pressure : / mmHG Vent. Rate : 083 BPM Atrial Rate : 083 BPM P-R Int : 000 ms QRS Dur : 132 ms QT Int : 426 ms P-R-T Axes : 000 090 -82 degrees QTc Int : 500 ms Demand pacemaker; interpretation is based on intrinsic rhythm Undetermined rhythm Rightward axis Non-specific intra-ventricular conduction block Cannot rule out Septal infarct , age undetermined T wave abnormality, consider inferior ischemia T wave abnormality, consider anterolateral ischemia Abnormal ECG Confirmed by ASTRID SONI MD ([id number]), editorial specialist ALONDRA FERNANDES ([id number]) on 02/18/2020 2:02:58 PM Referred By: NAE Confirmed By:ASTRID SONI MD
== END 2020-02-14 13:16 | disposition home or self-care (01) ==
LOC: ERS 10:52
DX: J18.9 Pneumonia, unspecified organism (principal); Z79.01 Long term (current) use of anticoagulants; Z79.899 Other long term (current) drug therapy
CPT/HCPCS: 36415; 71045; 80053; 82550; 82553; 83690; 83880; 84484; 85025; 93005; 96365; 96375; J1100; J3475

== ENCOUNTER 2020-03-12 21:42 | Inpatient (IN) | payer MEDICARE, BC, OTHER ==
[2020-03-12] MEDS ORDERED: Cefepime 2 GM VIAL ONE (22:33)
[2020-03-12 22:35] LABS: Analyzer IN Cardio ER; CO2 Tension 51.8 mmHg (35.0-45.0); Carboxyhemoglobin (COHb) 4.3 gm% (0.0-3.0); Hemoglobin (Hb) 14.6 g/dL (14.0-18.0); O2 Tension (PaO2), arterial 113.9 mmHg (> 70.0); Potassium - ABG Lab 4.52 mmol/L (3.70-5.30)
[2020-03-12 22:46] LABS: #Basophils 0.1 thou/uL (0.0-0.2); #Eosinphils 0.4 thou/uL (0.0-0.7); #Monocytes 0.7 thou/uL (0.11-0.59); %Basophils 0.9 % (0.0-1.0); %Eosinophils 3.4 % (0.0-10.0); %Lymphocytes 49.4 % (21.0-51.0); %Monocytes 5.3 % (0.0-10.0); %Neutrophils 41.1 % (42.0-75.0); Hemoglobin 14.8 g/dL (14.0-18.0); Mean Corpuscular HGB CONC 32.7 g/dL (32.0-36.0); Mean Corpuscular Hemoglobin 31.7 pg (27.0-31.0); Mean Corpuscular Volume 96.9 fL (78.0-98.0); Platelet Count 122 thou/uL (130-400); RBC Distribution Width 12.4 % (11.5-14.5); Red Blood Cell (RBC) Count 4.68 mill/uL (4.70-6.10); White Blood Cell (WBC) Count 12.1 thou/uL (4.8-10.8)
[2020-03-12 22:47] LABS: pH, Arterial 7.23 (7.35-7.45)
[2020-03-12 22:48] LABS: Puncture Site LRA
[2020-03-12 22:55] LABS: Bilirubin Negative (Negative); Blood, Urine Negative (Negative); Clarity Clear (Clear); Glucose, Urine (Dipstick) Normal (Negative); Leukocyte Negative Leu/uL (Negative); Nitrite Negative (Negative); Protein, Urine (Dipstick) Negative (Neg-Trace); Urobilinogen Normal mg/dL (Less than 2)
[2020-03-12 23:00] LABS: ALT (SGPT) 11 U/L (8-55); AST (SGOT) 15 U/L (5-34); Albumin 4.3 g/dL (3.4-4.8); Alkaline Phosphatase 104 U/L (40-110); Anion Gap 13 mmol/L (10-20); BUN (Urea Nitrogen) 14 mg/dL (8.4-25.7); Bilirubin, Total 0.8 mg/dL (0.2-1.2); Calc. Creatinine Clearance 0 mL/min (70-130); Calcium 9.3 mg/dL (7.8-10.44); Carbon Dioxide 26 mmol/L (23-31); Chloride 105 mmol/L (98-107); Estimated GFR-MDRD 75; Globulin 3.2 g/dL (2.4-3.5); Glucose 136 mg/dL (83-110); Potassium 3.9 mmol/L (3.5-5.1); Protein, Total 7.5 g/dL (5.8-8.1); Sodium 140 mmol/L (136-145)
--- NOTE | 2020-03-12 23:04 | RAD ---
XR Chest 1 View Portable HISTORY: Shortness of breath COMPARISON: 02/14/2020 FINDINGS: The heart is enlarged. Left-sided AICD remains in place. There is pulmonary vascular congestion. No lobar consolidation, pneumothoraces or pleural effusions are seen. There is confluence of interstitial markings in the right medial lung base suspicious for an infiltrate.
[2020-03-12 23:23] LABS: CKMB 1.3 ng/mL (0-6.6)
[2020-03-12] MEDS ORDERED: Diltiazem HCl 125 MG, Admixture Fee 1 EACH in Sodium Chloride 0.9% 100 ML IVPB SCH (23:30)
[2020-03-13 01:37] LABS: Lactic Acid 1.7 mmol/L (0.5-2.2)
[2020-03-13] MEDS ORDERED: hydrALAZINE 20 MG/ML VIAL SLOW IVP PRN (03:25)
[2020-03-13] MEDS ORDERED: cloNIDine 0.1 MG TAB PO PRN (03:25)
[2020-03-13] MEDS ORDERED: Ondansetron PF 4 MG/2 ML Vial IVP PRN ×2 (03:25→03:26)
[2020-03-13] MEDS ORDERED: Promethazine HCl 12.5 MG in Sodium Chloride 0.9% 50 ML IVPB PRN (03:25)
[2020-03-13] MEDS ORDERED: Ondansetron ODT 4 MG TAB SL PRN (03:26)
[2020-03-13] MEDS ORDERED: Acetaminophen 325 MG TAB PO PRN (03:26)
[2020-03-13] MEDS ORDERED: Furosemide 40 MG/4 ML VIAL SLOW IVP SCH (03:30)
--- NOTE | 2020-03-13 03:41 | PDOC.HHP ---
Hospitalist HPI - History of Present Illness Hypoxia, shortness of breath History of Present Illness: Patient is a 74 year old male with PMH atrial fibrillation, systolic CHF, pacemaker/AICD, chronic back pain, history of CVA, active tobacco use who presents to ED for shortness of breath beginnning today prior to coming to ED, he reports difficulty with deep breaths, chest tightness, was in afib w/ RVR with rate 160 in ED, CXR suggestive of vascular congestion, abg with respiratory acidosis, patient stabilized with bipap and IVF, heart rate improved , patient to be admitted to CCU for further workup. TnI mildly elevated. due to leukocytosis, elevated lactate and possible RLL lobar pneumonia patient started on empiric vanc/cefepime. covid 19 rule out ordered Patient has been seen in hospital for elevated troponin and chest pain within last year, EF previously 20% with stress test not showing reversible defect, heart cath w/ nonocclusive CAD, pacemaker battery replaced, this was all in November of this year, recommended medical management. 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 [facility] hospitalist service consulted for admission. Medications reviewed, on warfarin, digoxin, lisinopril, lasix and other medications per med rec. Vitals reviewed. EKG reviewed. ED Course: VITAL SIGNS SunMarch 12, 2020 23:56 JENNIFER Chaidez Jeana BP: 113/81 MAP: 91 Pulse: 90 Resp: 23 Pain: 0 O2 sat: 95 on (Bipap) Time: 03/12/2020 23:56 Hospitalist ROS - Review of Systems Constitutional: denies: fever, chills Eyes: denies: vision change, redness ENT: denies: ear pain, ear discharge, mouth swelling, throat pain Respiratory: reports: shortness of breath. denies: cough, dry Cardiovascular: denies: chest pain, palpitations Gastrointestinal: denies: nausea, vomiting Musculoskeletal: denies: neck pain, shoulder pain Skin: denies: rash, lesions Neurological: denies: weakness, numbness Other: Constitutional: denies: fever, chills, sweats, weakness, malaise, other Eyes: denies: pain, vision change, conjunctivae inflammation, eyelid inflammation, redness, other ENT: denies: ear pain, ear discharge, nose pain, nose discharge, nose congestion , mouth pain, mouth swelling, throat pain, throat swelling, other Respiratory: denies: cough, dry, shortness of breath, hemoptysis, SOB with excertion, pleuritic pain, sputum, wheezing, other Cardiovascular: reports: chest pain. denies: palpitations, orthopnea, paroxysmal noc. dyspnea, edema, light headedness, other Gastrointestinal: denies: nausea, vomiting, abdominal pain, diarrhea, constipation, melena, hematochezia, other Genitourinary: denies: dysuria, frequency, incontinence, hematuria, retention, other Musculoskeletal: denies: neck pain, shoulder pain, arm pain, back pain, hand pain, leg pain, foot pain, other Skin: denies: rash, lesions, sarah, bruising, other Neurological: denies: weakness, numbness, incoordination, change in speech, confusion, seizures, other All other systems reviewed; all pertinent +/- noted in HPI/Subj Hospitalist History - Past Medical History Other Medical History: Past medical history includes cardiac history, arrhythmia, atrial fibrillation, Treated with a pacemaker, treated with an AICD, Past medical history includes musculoskeletal disorder, chronic back pain, Past medical history includes neurological disease, CVA,. - Past Surgical History Other Surgical History: Surgical history of orthopedic surgery, bilateral knees, pacemaker. - Family History Other Family History: reports: no pertinent history - Social History Other Social History: Patient denies alcohol use, Patient denies drug use, Patient currently uses tobacco, smokes cigarettes, Patient smokes 1.5 packs per day,. - Exam General Appearance: NAD, awake alert Eye: PERRL, anicteric sclera ENT: normocephalic atraumatic, no oropharyngeal lesions, moist mucosa ENT - other findings: on bipap Neck: supple, symmetric, no JVD, no thyromegaly, no lymphadenopathy, no carotid bruit Heart: no murmur, no gallops, no rubs, normal peripheral pulses Heart - other findings: tachycardia, irregular Respiratory - other findings: crackles dependant Gastrointestinal: soft, non-tender, non-distended, normal bowel sounds, no palpable masses, no hepatomegaly, no splenomegaly, no bruit Extremities: no cyanosis, no clubbing, no edema Skin: normal turgor, no lesions, no rashes Neurological: cranial nerve grossly intact, normal sensation to touch, no weakness, no focal deficits, no new deficit Musculoskeletal: normal tone, normal strength, no muscle wasting Psychiatric: normal affect, normal behavior, A&O x 3 Hospitalist Results - Labs Result Diagrams: 03/12/20 22:27 03/12/20 22:27 Lab results: WBC 12.1 thou/uL (4.8-10.8) H 03/12/20 22:27 Hgb 14.8 g/dL (14.0-18.0) 03/12/20 22:27 Hct 45.3 % (42.0-52.0) 03/12/20 22:27 MCV 96.9 fL (78.0-98.0) 03/12/20 22: Plt Count 122 thou/uL (130-400) L 03/12/20 22:27 Neutrophils % 41.1 % (42.0-75.0) L 03/12/20 22:27 ABG pH 7.23 (7.35-7.45) L* 03/12/20 22:36 ABG pCO2 51.8 mmHg (35.0-45.0) H 03/12/20 22:36 ABG pO2 113.9 mmHg (> 70.0) H 03/12/20 22:36 Sodium 140 mmol/L (136-145) 03/12/20 22:27 Potassium 3.9 mmol/L (3.5-5.1) 03/12/20 22:27 Chloride 105 mmol/L (98-107) 03/12/20 22:27 Carbon Dioxide 26 mmol/L (23-31) 03/12/20 22:27 BUN 14 mg/dL (8.4-25.7) 03/12/20 22:27 Creatinine 0.97 mg/dL (0.7-1.3) 03/12/20 22:27 Glucose 136 mg/dL (83-110) H 03/12/20 22:27 Lactic Acid 1.7 mmol/L (0.5-2.2) 03/13/20 01:08 Calcium 9.3 mg/dL (7.8-10.44) 03/12/20 22:27 Total Bilirubin 0.8 mg/dL (0.2-1.2) 03/12/20 22:27 AST 15 U/L (5-34) 03/12/20 22:27 ALT 11 U/L (8-55) 03/12/20 22:27 Alkaline Phosphatase 104 U/L (40-110) 03/12/20 22:27 CK-MB (CK-2) 1.3 ng/mL (0-6.6) 03/12/20 22:27 Troponin I 0.080 ng/mL (< 0.028) H 03/13/20 02:21 B-Natriuretic Peptide 1983.5 pg/mL (0-100) H 03/12/20 22:27 Serum Total Protein 7.5 g/dL (5.8-8.1) 03/12/20 22:27 Albumin 4.3 g/dL (3.4-4.8) 03/12/20 22:27 Urine Ketones Negative mg/dL (Negative) 03/12/20 22:39 Urine Blood Negative (Negative) 03/12/20 22:39 Urine Nitrite Negative (Negative) 03/12/20 22:39 Ur Leukocyte Esterase Negative Darlin/uL (Negative) 03/12/20 22:39 Hospitalist H&P A/P - Problem (1) Acute on chronic systolic (congestive) heart failure Code(s): I50.23 - ACUTE ON CHRONIC SYSTOLIC (CONGESTIVE) HEART FAILURE Status : Acute (2) Pneumonia Code(s): J18.9 - PNEUMONIA, UNSPECIFIED ORGANISM Status: Acute (3) Sepsis Code(s): A41.9 - SEPSIS, UNSPECIFIED ORGANISM Status: Acute (4) Atrial fibrillation Code(s): I48.91 - UNSPECIFIED ATRIAL FIBRILLATION Status: Acute Qualifiers: Atrial fibrillation type: paroxysmal Qualified Code(s): I48.0 - Paroxysmal atrial fibrillation (5) Atypical pneumonia Code(s): J18.9 - PNEUMONIA, UNSPECIFIED ORGANISM Status: Acute (6) Metabolic encephalopathy Code(s): G93.41 - METABOLIC ENCEPHALOPATHY Status: Acute (7) Afib Code(s): I48.91 - UNSPECIFIED ATRIAL FIBRILLATION Status: Chronic Qualifiers: Atrial fibrillation type: paroxysmal Qualified Code(s): I48.0 - Paroxysmal atrial fibrillation (8) Chronic systolic heart failure, ACC/AHA stage C Code(s): I50.22 - CHRONIC SYSTOLIC (CONGESTIVE) HEART FAILURE Status: Chronic - Plan Plan: Patient is a 74 year old male with PMH atrial fibrillation, systolic CHF, pacemaker/AICD, chronic back pain, history of CVA, active tobacco use who presents to ED for shortness of breath and hypoxia. # acute hypoxic and hypercapneic respiratory failure - perhaps element of CHF exacerbation contributing, patient with signs of overload on CXR and mildly elevated troponin - admit to CCU - coags pending - CT chest w contrast PE protocol ordered - iv lasix ordered # sepsis due to possible RLL pneumonia - elevated lactate, tachycardia, elevated WBC, possible pneumonia - follow up the CT results to further characterize - covid rule out ordered, precautions until results - empiric vanc and cefepime - consult pulmonary # acute and chronic systolic CHF - with history of afib, pacemaker - continue home medications once med rec complete - admit to telemetry, observation status - trend troponin - consult cardiology - pacemaker interrogated in ED and working appropriately - continue home medications once med rec complete # atrial fibrillation w/ pacemaker - consult cardiology - continue warfarin, trend INR, pharmacy consult - start lovenox or bridge if inr comes back subtherapeutic - continue home medications once med rec complete # HTN history - continue home medications once med rec complete, PRN medications ordered
[2020-03-13] MEDS ORDERED: Guaifenesin DM 100-10/5 ML UDCUP PO PRN (03:45)
[2020-03-13] MEDS ORDERED: Bisacodyl 5 MG TAB PO PRN (03:45)
[2020-03-13] MEDS ORDERED: Senokot S 8.6-50 MG TAB PO PRN (03:45)
[2020-03-13] MEDS ORDERED: HYDROcodone/Acetaminophen 5/325 mg Tablet PO PRN (03:45)
[2020-03-13 04:35] VITALS: BMI 22.8
[2020-03-13 04:59] LABS: Actual Bicarbonate (HCO3a) 18.8 mEq/L (22-28); Base Excess (BEa) -4.1 mEq/L (-2.0 to +3.0); CO2 Tension 28.4 mmHg (35.0-45.0); O2 Tension (PaO2), arterial 169.5 mmHg (> 70.0); pH, Arterial 7.44 (7.35-7.45)
[2020-03-13 05:00] LABS: Hemoglobin (Hb) 12.3 g/dL (14.0-18.0); Potassium - ABG Lab 4.09 mmol/L (3.70-5.30)
[2020-03-13 05:01] LABS: Calcium, Ionized 1.11 mmol/L (1.12-1.30); Puncture Site L RADIAL
[2020-03-13] MEDS ORDERED: Pharmacy to Dose VANCOMYCIN, CEFEPIME IVPB PRN (05:01)
[2020-03-13 05:46] LABS: INR-International Normal Ratio 1.2; Prothrombin Time 14.7 SEC (12.0-14.7)
[2020-03-13 05:48] LABS: D-Dimer Test 1.33 *mcg/mL (0.27-0.43)
[2020-03-13 05:58] LABS: Digoxin 0.49 ng/mL (0.8-2.0)
[2020-03-13 06:03] LABS: Troponin I 0.112 ng/mL (< 0.028)
[2020-03-13 06:06] LABS: Anion Gap 10 mmol/L (10-20); BUN (Urea Nitrogen) 13 mg/dL (8.4-25.7); Calc. Creatinine Clearance 86 mL/min (70-130); Calcium 8.4 mg/dL (7.8-10.44); Carbon Dioxide 26 mmol/L (23-31); Chloride 109 mmol/L (98-107); Estimated GFR-MDRD Greater than 90; Glucose 111 mg/dL (83-110); Potassium 4.5 mmol/L (3.5-5.1); Sodium 140 mmol/L (136-145)
[2020-03-13] MEDS: Cefepime 1 GM in Sodium Chloride 0.9% 100 ML IVPB SCH ×3 (06:55→21:36)
[2020-03-13] MEDS ORDERED: Prevnar 13-Val Conj/PF 0.5 ML SYRINGE IM ONE (09:00)
[2020-03-13] MEDS: Famotidine 20 MG TAB PO SCH ×2 (09:35→20:44)
[2020-03-13] MEDS: Digoxin 0.25 MG TAB PO SCH (09:35)
[2020-03-13] MEDS: Furosemide 40 MG/4 ML VIAL SLOW IVP SCH (09:35)
[2020-03-13] MEDS: Finasteride 5 MG TAB PO SCH (09:39)
[2020-03-13] MEDS: Polyethylene Glycol 3350 17 GM Packet PO SCH (09:40)
[2020-03-13] MEDS ORDERED: Cefepime 2 GM in Sodium Chloride 0.9% 100 ML IVPB SCH (10:00)
[2020-03-13] MEDS: Vancomycin 1 GM in Premix Bag 1 BAG IVPB SCH ×2 (10:24→20:44)
[2020-03-13 10:42] LABS: Troponin I 0.137 ng/mL (< 0.028)
[2020-03-13] MEDS: Albuterol 200 PUFF (6.7GM INHALER) INH SCH ×4 (11:45→22:16)
[2020-03-13] MEDS: Carvedilol 3.125 MG TAB PO SCH ×2 (11:46→20:44)
[2020-03-13 13:19] LABS: SARS-CoV-2 MS2 Positive; SARS-CoV-2 N Gene Negative; SARS-CoV-2 S Gene Negative; SARS-CoV-2 orf1ab Negative
--- NOTE | 2020-03-13 16:41 | CON ---
DATE OF CONSULTATION: 03/13/2020 REASON FOR CONSULTATION: Atrial fibrillation with RVR and elevated troponins. PRIMARY MODEL BUILDER DISPLAY: Dr. [place] eKrn. HISTORY OF PRESENT ILLNESS: Mr. Bermudez is a very pleasant 74-year-old gentleman, who comes to the hospital for chest pain and difficulty breathing. He has a history of nonischemic cardiomyopathy, EF at 20% and chronic atrial fibrillation. He has an AICD in place. He came in for chest tightness, was found to be in atrial fibrillation RVR, heart rate in the 160s. Physical exam and chest x-ray suggested acute CHF exacerbation with vascular congestion, so he was placed on a BiPAP and placed on IV diltiazem and admitted to the ICU. COVID workup was done and was negative. He denies any more chest pain, tightness, or pressure. He had a heart catheterization back in November that showed mild coronary artery disease. On my evaluation, Mr. Bermudez feels a lot better. PAST MEDICAL HISTORY: 1. Atrial fibrillation. 2. Nonischemic cardiomyopathy, EF at 20% to 25%. 3. Status post AICD. 4. Chronic back pain. 5. History of CVA. PAST SURGICAL HISTORY: 1. Bilateral knee replacements. 2. AICD placement. FAMILY HISTORY: Noncontributory. SOCIAL HISTORY: Smokes one and half packs a day. No alcohol or drugs. OUTPATIENT MEDICATIONS: 1. Lisinopril 2.5 mg a day. 2. Atorvastatin 40 mg at bedtime. 3. Finasteride 5 mg a day. 4. Carvedilol 3.125 b.i.d. 5. Digoxin 250 mcg a day. 6. Eliquis 5 mg b.i.d. ALLERGIES: NO KNOWN DRUG ALLERGIES. REVIEW OF SYSTEMS: A 12-point review of systems was done and was all negative unless stated in history of present illness. PHYSICAL EXAMINATION: VITAL SIGNS: Temperature 98.3, pulse 81, respiratory rate 16, sat 100% on 2 L nasal cannula. GENERAL: Awake, alert, oriented x3, in no distress. HEENT: Normocephalic and atraumatic. NECK: Supple. LUNGS: Mild crackles. CARDIOVASCULAR: Irregularly irregular. Heart rate in the 80s. ABDOMEN: Soft. Positive bowel sounds. EXTREMITIES: No edema. SKIN: Warm and dry. LABORATORY DATA: Laboratory work was reviewed. White count of 12, hemoglobin of 14, hematocrit 45, platelet count 122. Coags were normal. ABG was unremarkable. Chemistry with sodium 140, potassium 4.5, chloride 109, carbon dioxide of 26, GFR greater than 90. Troponin I is 0.08, 0.11, and 0.13. UA is unremarkable. Toxicology, digoxin level was low. COVID PCR was not detected. ASSESSMENT/PLAN: 1. Acute on chronic systolic heart failure. 2. Atrial fibrillation with rapid ventricular response, rate controlled now. 3. Chronic systolic dysfunction, EF at 20% to 25%. 4. Nonischemic cardiomyopathy. 5. Noncompliance. PLAN: 1. Agree with continued IV diuresis. 2. Heart rate better controlled with treatment of possible infection, possible pneumonia on chest x-ray. 3. Continue Eliquis for stroke prophylaxis. 4. Continue digoxin and beta klever. 5. Heart rate control on current regimen. We would continue for now. Thank you for letting us to participate in the care of your patient. We will follow. Job ID: [id number]
[2020-03-13 16:58] LABS: Troponin I 0.141 ng/mL (< 0.028)
[2020-03-13] MEDS ORDERED: Warfarin Sodium 5 MG TAB PO SCH (17:00)
[2020-03-13] MEDS: Apixaban 5 MG TAB PO SCH (20:43)
[2020-03-13] MEDS: Atorvastatin Calcium 40 MG TAB PO SCH (20:43)
[2020-03-14] MEDS: Albuterol 200 PUFF (6.7GM INHALER) INH SCH ×6 (02:00→22:14)
[2020-03-14 04:52] LABS: INR-International Normal Ratio 1.2; Prothrombin Time 15.1 SEC (12.0-14.7)
[2020-03-14] MEDS: Cefepime 1 GM in Sodium Chloride 0.9% 100 ML IVPB SCH ×3 (05:03→22:16)
[2020-03-14 05:06] LABS: Anion Gap 13 mmol/L (10-20); BUN (Urea Nitrogen) 16 mg/dL (8.4-25.7); Calc. Creatinine Clearance 82 mL/min (70-130); Calcium 8.5 mg/dL (7.8-10.44); Carbon Dioxide 25 mmol/L (23-31); Chloride 106 mmol/L (98-107); Estimated GFR-MDRD 88; Glucose 103 mg/dL (83-110); Magnesium 1.9 mg/dL (1.6-2.6); Potassium 3.9 mmol/L (3.5-5.1); Sodium 140 mmol/L (136-145)
[2020-03-14 05:23] LABS: Band 2 % (5-11); Eosinophils 5 % (0-10); Hemoglobin 13.4 g/dL (14.0-18.0); Lymphocytes 23 % (21-51); MDiff Complete? YES; Mean Corpuscular HGB CONC 33.4 g/dL (32.0-36.0); Mean Corpuscular Hemoglobin 31.8 pg (27.0-31.0); Mean Corpuscular Volume 95.2 fL (78.0-98.0); Mean Platelet Volume 12.2 fL (7.4-10.4); Monocytes 8 % (0-10); Neutrophil 62 % (42-75); Platelet Count 107 thou/uL (130-400); Platelet Morphology Comment Appears Decreased; RBC Distribution Width 12.1 % (11.5-14.5); White Blood Cell (WBC) Count 7.4 thou/uL (4.8-10.8)
[2020-03-14 08:23] LABS: Vancomycin, Trough 16.8 ug/mL
[2020-03-14] MEDS: Vancomycin 1 GM in Premix Bag 1 BAG IVPB SCH ×2 (08:41→20:59)
[2020-03-14] MEDS: Apixaban 5 MG TAB PO SCH ×2 (08:45→21:00)
[2020-03-14] MEDS: Carvedilol 3.125 MG TAB PO SCH ×2 (08:45→21:03)
[2020-03-14] MEDS: Lisinopril 2.5 MG TAB PO SCH (08:45)
[2020-03-14] MEDS: Digoxin 0.25 MG TAB PO SCH (08:45)
[2020-03-14] MEDS: Furosemide 40 MG/4 ML VIAL SLOW IVP SCH (08:45)
[2020-03-14] MEDS: Famotidine 20 MG TAB PO SCH ×2 (08:46→20:59)
[2020-03-14] MEDS: Polyethylene Glycol 3350 17 GM Packet PO SCH (08:46)
[2020-03-14] MEDS: Finasteride 5 MG TAB PO SCH (08:46)
--- NOTE | 2020-03-14 12:36 | PDOC.HOSPP ---
- Subjective Encounter Date: 03/14/20 Subjective: Feels better. - Objective Vital Signs & Weight: Vital Signs (12 hours) Temp Pulse Resp BP BP Pulse Ox 03/14/20 11:00 98 F 80 16 150/117 H 93 L 03/14/20 07:13 97.4 F L 81 16 108/63 94 L 03/14/20 06:11 130/66 03/14/20 04:53 98.7 F 81 12 92/55 L 95 Weight Weight 174 lb 9.6 oz Most Recent Monitor Data Heart Rate from ECG 88 NIBP 101/69 NIBP BP-Mean 79 Respiration from ECG 16 SpO2 100 I&O: 03/13/20 03/14/20 03/15/20 06:59 06:59 06:59 Intake Total 1480 Output Total 5000 Balance -3520 Result Diagrams: 03/14/20 04:14 03/14/20 04:14 Hospitalist ROS - Medication Medications: Active Medications Generic Name Dose Route Start Last Admin Trade Name Freq PRN Reason Stop Dose Admin Albuterol Sulfate 2 puff 03/13/20 10:30 03/14/20 10:30 Proventil Hfa INH 2 puff [id number] RAFFY Administration Apixaban 5 mg 03/13/20 21:00 03/14/20 08:45 Eliquis PO 5 mg BID RAFFY Administration Atorvastatin Calcium 40 mg 03/13/20 21:00 03/13/20 20:43 Lipitor PO 40 mg HS RAFFY Administration Carvedilol 3.125 mg 03/13/20 09:00 03/14/20 08:45 Coreg PO 3.125 mg BID RAFFY Administration Digoxin 0.25 mg 03/13/20 09:00 03/14/20 08:45 Lanoxin PO 0.25 mg DAILY RAFFY Administration Duloxetine HCl 20 mg 03/13/20 09:00 03/14/20 08:46 Cymbalta PO 20 mg BID RAFFY Administration Famotidine 20 mg 03/13/20 09:00 03/14/20 08:46 Pepcid PO 20 mg BID RAFFY Administration Finasteride 5 mg 03/13/20 09:00 03/14/20 08:46 Proscar PO 5 mg DAILY RAFFY Administration Furosemide 40 mg 03/13/20 09:00 03/14/20 08:45 Lasix SLOW IVP 40 mg DAILY RAFFY Administration Cefepime HCl 1 gm/ Sodium 100 mls @ 200 mls/hr 03/13/20 06:00 03/14/20 05:03 Chloride IVPB 03/20/20 06:01 100 mls Q8HR RAFFY Administration Vancomycin HCl 1 gm/ Device 200 mls @ 200 mls/hr 03/13/20 09:00 03/14/20 08: 41 IVPB 03/20/20 09:01 200 mls Q12HR RAFFY Administration Lisinopril 2.5 mg 03/14/20 09:00 03/14/20 08:45 Zestril PO Not Given DAILY RAFFY Polyethylene Glycol 17 gm 03/13/20 09:00 03/14/20 08:46 Miralax PO Not Given DAILY RAFFY Sodium Chloride 10 ml 03/13/20 09:00 03/14/20 08:46 Flush - Normal Saline IVF 10 ml Q12HR RAFFY Administration - Exam General Appearance: awake alert Neck: supple, no JVD Respiratory: normal chest expansion, no tachypnea Gastrointestinal: normal bowel sounds Neurological: cranial nerve grossly intact, no focal deficits Hosp A/P (1) Acute on chronic systolic (congestive) heart failure Code(s): I50.23 - ACUTE ON CHRONIC SYSTOLIC (CONGESTIVE) HEART FAILURE Status : Acute (2) Pneumonia Code(s): J18.9 - PNEUMONIA, UNSPECIFIED ORGANISM Status: Acute (3) Sepsis Code(s): A41.9 - SEPSIS, UNSPECIFIED ORGANISM Status: Acute (4) Atrial fibrillation Code(s): I48.91 - UNSPECIFIED ATRIAL FIBRILLATION Status: Acute Qualifiers: Atrial fibrillation type: paroxysmal Qualified Code(s): I48.0 - Paroxysmal atrial fibrillation (5) COPD (chronic obstructive pulmonary disease) Status: Chronic Qualifiers: COPD type: chronic bronchitis (6) Dyslipidemia Code(s): E78.5 - HYPERLIPIDEMIA, UNSPECIFIED Status: Chronic (7) GERD (gastroesophageal reflux disease) Code(s): K21.9 - GASTRO-ESOPHAGEAL REFLUX DISEASE WITHOUT ESOPHAGITIS Status: Chronic Qualifiers: Esophagitis presence: with esophagitis Qualified Code(s): K21.0 - Gastro- esophageal reflux disease with esophagitis (8) Hypertension Code(s): I10 - ESSENTIAL (PRIMARY) HYPERTENSION Status: Chronic Qualifiers: Hypertension type: essential hypertension Qualified Code(s): I10 - Essential (primary) hypertension (9) Tobacco abuse Code(s): Z72.0 - TOBACCO USE Status: Chronic - Plan The patient is diuresing well with negative fluid balance over the past 24hrs. Saturating well on RA. Continue Lasix and antibiotics. Encourage ambulation.
--- NOTE | 2020-03-14 13:45 | PDOC.CPN ---
- Subjective Date: 03/14/20 Time: 13:43 Interval history: He is feeling better. No angina. SOB better. - Review of Systems General: reports: fatigue. denies: fever/chills, weight/appetite/sleep changes , night sweats Respiratory: reports: shortness of breath. denies: cough, congestion, exercise intolerance Cardiovascular: denies: chest pain, palpitation, edema, paroxysmal nocturnal dyspnea, orthopnea Gastrointestinal: denies: nausea, vomiting, diarrhea, constipation, abd pain, GI bleeding Musculoskeletal: denies: pain, tenderness, stiffness, swelling, arthritis/ arthralgias Neurological: denies: numbness, syncope, seizure, weakness - Objective Allergies/Adverse Reactions: Allergies Allergy/AdvReac Type Severity Reaction Status Date / Time No Known Drug Allergies Allergy Verified 02/03/20 14:20 Visit Medications: Current Medications Hydrocodone Bitart/Acetaminophen ([place] 5/325) 1 tab PO Q4H PRN PRN Reason: Moderate Pain (4-6) Albuterol Sulfate (Proventil Hfa) 2 puff INH [id number] [facility] Last Admin: 03/14/20 10:30 Dose: 2 puff Apixaban (Eliquis) 5 mg PO BID [facility] Last Admin: 03/14/20 08:45 Dose: 5 mg Atorvastatin Calcium (Lipitor) 40 mg PO HS [facility] Last Admin: 03/13/20 20:43 Dose: 40 mg Bisacodyl (Dulcolax) 10 mg PO DAILYPRN PRN PRN Reason: Constipation Carvedilol (Coreg) 3.125 mg PO BID [facility] Last Admin: 03/14/20 08:45 Dose: 3.125 mg Clonidine (Catapres) 0.1 mg PO BID PRN PRN Reason: SBP > 160 use second Digoxin (Lanoxin) 0.25 mg PO DAILY [facility] Last Admin: 03/14/20 08:45 Dose: 0.25 mg Duloxetine HCl (Cymbalta) 20 mg PO BID [facility] Last Admin: 03/14/20 08:46 Dose: 20 mg Famotidine (Pepcid) 20 mg PO BID [facility] Last Admin: 03/14/20 08:46 Dose: 20 mg Finasteride (Proscar) 5 mg PO DAILY [facility] Last Admin: 03/14/20 08:46 Dose: 5 mg Furosemide (Lasix) 40 mg SLOW IVP DAILY [facility] Last Admin: 03/14/20 08:45 Dose: 40 mg Guaifenesin/Dextromethorphan (Robitussin Dm) 15 ml PO Q4H PRN PRN Reason: Cough Hydralazine HCl (Apresoline) 10 mg SLOW IVP Q6H PRN PRN Reason: SBP GREATER THAN 160 Promethazine HCl 12.5 mg/ (Sodium Chloride) 50.5 mls @ 202 mls/hr IVPB Q6H PRN PRN Reason: Nausea/vomiting use second Cefepime HCl 1 gm/ Sodium (Chloride) 100 mls @ 200 mls/hr IVPB Q8HR [facility] Stop: 03/20/20 06:01 Last Admin: 03/14/20 05:03 Dose: 100 mls Vancomycin HCl 1 gm/ Device 200 mls @ 200 mls/hr IVPB Q12HR [facility] Stop: 03/20/20 09:01 Last Admin: 03/14/20 08:41 Dose: 200 mls Lisinopril (Zestril) 2.5 mg PO DAILY [facility] Last Admin: 03/14/20 08:45 Dose: Not Given Miscellaneous Medication (Pharmacy To Dose) 1 each IVPB PRN PRN PRN Reason: Pharmacy to dose Ondansetron HCl (Zofran) 4 mg IVP Q6H PRN PRN Reason: Nausea/Vomiting use 1st Polyethylene Glycol (Miralax) 17 gm PO DAILY [facility] Last Admin: 03/14/20 08:46 Dose: Not Given Senna/Docusate Sodium (Senokot S) 2 tab PO BID PRN PRN Reason: Constipation Sodium Chloride (Flush - Normal Saline) 10 ml IVF Q12HR [facility] Last Admin: 03/14/20 08:46 Dose: 10 ml Sodium Chloride (Flush - Normal Saline) 10 ml IVF PRN PRN PRN Reason: Saline Flush Vital Signs & Weight: Vital Signs Temp Pulse Resp BP BP Pulse Ox 03/14/20 11:00 98 F 80 16 150/117 H 93 L 03/14/20 07:13 97.4 F L 81 16 108/63 94 L 03/14/20 06:11 130/66 03/14/20 04:53 98.7 F 81 12 92/55 L 95 Weight 174 lb 9.6 oz - Physical Exam General: alert & oriented x3 HEENT: mucus membranes moist Neck: supple neck Cardiac: irregularly regular Lungs: rales - right Neuro: grossly intact Abdomen: active bowel sounds Extremities: no edema Skin: clear Musculoskeletal: no pain - Labs Result Diagrams: 03/14/20 04:14 03/14/20 04:14 Troponin/CKMB CK-MB (CK-2) 1.3 ng/mL (0-6.6) 03/12/20 22:27 Troponin I 0.141 ng/mL (< 0.028) H 03/13/20 16:21 - Telemetry Sinus rhythms and dysrhythmias: other (V paced.) Supraventricular conduction: atrial fibrillation - Assessment/Plan Assessment/Plan: 1. Afib rate controlled. 2. Non ischemic CM, EF at 20-25% 3. Acute on chronic Systolic heart dailure. 4. Non compliance. 5. S/P AICD. 6. Type 2 demand ischemia. PLAN: - Continue IV diuresis. - Continue BB and dig. Rate controlled. - Continue Eliquis for stroke prophylaxis. - Dr. Kern to follow tomorrow.
[2020-03-14] MEDS: Atorvastatin Calcium 40 MG TAB PO SCH (21:00)
[2020-03-15] MEDS: Albuterol 200 PUFF (6.7GM INHALER) INH SCH ×4 (02:12→14:23)
[2020-03-15 04:39] LABS: INR-International Normal Ratio 1.2; Prothrombin Time 15.4 SEC (12.0-14.7)
[2020-03-15 04:55] LABS: Anion Gap 11 mmol/L (10-20); BUN (Urea Nitrogen) 14 mg/dL (8.4-25.7); Calc. Creatinine Clearance 84 mL/min (70-130); Calcium 9.1 mg/dL (7.8-10.44); Carbon Dioxide 29 mmol/L (23-31); Chloride 101 mmol/L (98-107); Estimated GFR-MDRD 89; Glucose 105 mg/dL (83-110); Potassium 4.1 mmol/L (3.5-5.1); Sodium 137 mmol/L (136-145)
[2020-03-15 05:08] LABS: Band 1 % (5-11); Eosinophils 4 % (0-10); Hemoglobin 13.7 g/dL (14.0-18.0); Hypochromia SLIGHT = 6-15 cells (100X) (0-5/hpf); Lymphocytes 13 % (21-51); MDiff Complete? YES; Mean Corpuscular HGB CONC 32.4 g/dL (32.0-36.0); Mean Corpuscular Hemoglobin 30.9 pg (27.0-31.0); Mean Corpuscular Volume 95.1 fL (78.0-98.0); Mean Platelet Volume 11.9 fL (7.4-10.4); Monocytes 3 % (0-10); Neutrophil 79 % (42-75); Platelet Count 112 thou/uL (130-400); Platelet Morphology Comment Appears Decreased; RBC Distribution Width 12.1 % (11.5-14.5); Red Blood Cell (RBC) Count 4.44 mill/uL (4.70-6.10); White Blood Cell (WBC) Count 7.4 thou/uL (4.8-10.8)
[2020-03-15] MEDS: Cefepime 1 GM in Sodium Chloride 0.9% 100 ML IVPB SCH (06:16)
[2020-03-15] MEDS: Lisinopril 2.5 MG TAB PO SCH (09:11)
[2020-03-15] MEDS: Vancomycin 1 GM in Premix Bag 1 BAG IVPB SCH (09:11)
[2020-03-15] MEDS: Apixaban 5 MG TAB PO SCH (09:11)
[2020-03-15] MEDS: Famotidine 20 MG TAB PO SCH (09:11)
[2020-03-15] MEDS: Polyethylene Glycol 3350 17 GM Packet PO SCH (09:13)
[2020-03-15] MEDS: Finasteride 5 MG TAB PO SCH (09:13)
[2020-03-15] MEDS: Carvedilol 3.125 MG TAB PO SCH (09:13)
[2020-03-15] MEDS: Furosemide 40 MG/4 ML VIAL SLOW IVP SCH (09:13)
[2020-03-15] MEDS ORDERED: Digoxin 0.25 MG TAB PO SCH (12:00)
[2020-03-15] MEDS: Digoxin 0.25 MG TAB PO SCH (12:24)
[2020-03-15 19:44] VITALS: BP 102/68; TEMP 97.8
--- NOTE | 2020-03-16 06:06 | DIS ---
DATE OF ADMISSION: 03/13/2020 DATE OF DISCHARGE: 03/15/2020 DISCHARGE DIAGNOSES: 1. Acute on chronic systolic congestive heart failure with ejection fraction of 20% to 30%. 2. Community-acquired pneumonia. 3. Sepsis. 4. Atrial fibrillation. 5. Chronic obstructive pulmonary disease exacerbation. 6. Dyslipidemia. 7. Hypertension. 8. Gastroesophageal reflux disease. 9. Tobacco abuse. DISCHARGE MEDICATIONS: 1. Augmentin 875/125 mg orally twice daily for 5 days. 2. Azithromycin 500 mg orally daily for 5 days. 3. Carvedilol 6.25 mg orally twice daily. 4. Furosemide 40 mg orally daily. 5. Eliquis 5 mg orally twice daily. 6. Atorvastatin 40 mg orally nightly. 7. Digoxin 250 mcg orally daily. 8. Cymbalta 20 mg orally daily. 9. Finasteride 5 mg orally daily. 10. Lisinopril 2.5 mg orally daily. HISTORY OF PRESENT ILLNESS AND HOSPITAL COURSE: The patient is a 74-year-old male with past medical history of atrial fibrillation and nonischemic cardiomyopathy with EF of 20% to 30%, status post AICD placement, history of CVA, COPD, and tobacco use, who presented to the hospital with shortness of breath that was started on the day prior to presentation associated with chest tightness and cough. In the ER, he was found to be in atrial fibrillation with RVR and his chest x-ray revealed vascular congestion. The patient was admitted to the hospital with impression of exacerbation of congestive heart failure and atrial fibrillation. He was managed with low-salt diet, fluid restriction, strict intake and outputs, and IV diuretics to achieve negative fluid balance. CT scan of the chest revealed some findings concerning for right lower lobe pneumonia, so IV antibiotics were initiated. Within 48 hours, the patient's symptoms improved significantly. On the day of discharge, the patient was able to ambulate with little symptoms. Job ID: [id number]
--- NOTE | 2020-03-25 16:11 | EKG ---
Test Reason : Blood Pressure : / mmHG Vent. Rate : 160 BPM Atrial Rate : 163 BPM P-R Int : 000 ms QRS Dur : 126 ms QT Int : 294 ms P-R-T Axes : 000 055 -87 degrees QTc Int : 479 ms Atrial fibrillation with rapid ventricular response Non-specific intra-ventricular conduction block Cannot rule out Anteroseptal infarct , age undetermined T wave abnormality, consider lateral ischemia Abnormal ECG Confirmed by ANAND CAM ([id number]), editorial clerk ALONDRA FERNANDES ([id number]) on 03/25/2020 4:10:46 PM Referred By: Confirmed By:ANAND CAM
== END 2020-03-15 16:31 | disposition home or self-care (01) | DRG 871 ==
LOC: ERS 21:42 → CCU 03-13 03:13 → 2NO 03-13 16:53
PROVIDERS: ADMIT Internal Medicine; ATTEND Internal Medicine
PROC: 8E0ZXY6 Isolation (ICD-10-PCS; principal; 2020-03-13)
PROC: 5A09357 Assistance with Respiratory Ventilation, Less than 24 Consecutive Hours, Continuous Positive Airway Pressure (ICD-10-PCS; 2020-03-13)
DX: A41.9 Sepsis, unspecified organism (principal); J18.9 Pneumonia, unspecified organism; I50.23 Acute on chronic systolic (congestive) heart failure; J96.02 Acute respiratory failure with hypercapnia; J44.1 Chronic obstructive pulmonary disease with (acute) exacerbation; I42.8 Other cardiomyopathies; I24.8 Other forms of acute ischemic heart disease; J44.0 Chronic obstructive pulmonary disease with (acute) lower respiratory infection; Z20.828 Contact with and (suspected) exposure to other viral communicable diseases; E78.5 Hyperlipidemia, unspecified; I11.0 Hypertensive heart disease with heart failure; F41.9 Anxiety disorder, unspecified; G89.29 Other chronic pain; Z96.653 Presence of artificial knee joint, bilateral; I48.0 Paroxysmal atrial fibrillation; K21.9 Gastro-esophageal reflux disease without esophagitis; Z95.810 Presence of automatic (implantable) cardiac defibrillator; Z79.01 Long term (current) use of anticoagulants; Z86.73 Personal history of transient ischemic attack (TIA), and cerebral infarction without residual deficits
CPT/HCPCS: 36415; 51701; 71045; 80048; 80053; 80162; 80202; 81003; 82553; 82805; 83605; 83735; 83880; 84484; 85007; 85025; 85027; 85379; 85610; 87040; 87086; 87635; 93005; 93306; 93798; 94760; 96365; 96366; J0692; J1940; J3370; J3490; J7030; J7620; U0003

== ENCOUNTER 2020-10-31 00:51 | Emergency (ER) | payer MEDICARE, BC ==
[2020-10-31] MEDS ORDERED: predniSONE 20 MG TAB ONE (01:26)
[2020-10-31 01:50] LABS: Hemoglobin 11.9 g/dL (14.0-18.0); Mean Corpuscular HGB CONC 33.9 g/dL (32.0-36.0); Mean Corpuscular Hemoglobin 32.7 pg (27.0-31.0); Mean Corpuscular Volume 96.5 fL (78.0-98.0); RBC Distribution Width 12.3 % (11.5-14.5); Red Blood Cell (RBC) Count 3.63 mill/uL (4.70-6.10); White Blood Cell (WBC) Count 7.6 thou/uL (4.8-10.8)
[2020-10-31 01:56] LABS: ALT (SGPT) 13 U/L (8-55); AST (SGOT) 16 U/L (5-34); Albumin 3.8 g/dL (3.4-4.8); Alkaline Phosphatase 89 U/L (40-110); Anion Gap 14 mmol/L (10-20); BUN (Urea Nitrogen) 20 mg/dL (8.4-25.7); Bilirubin, Total 0.6 mg/dL (0.2-1.2); Calc. Creatinine Clearance 0 mL/min (70-130); Calcium 8.4 mg/dL (7.8-10.44); Carbon Dioxide 25 mmol/L (23-31); Chloride 107 mmol/L (98-107); Globulin 2.4 g/dL (2.4-3.5); Glucose 118 mg/dL (83-110); Potassium 4.5 mmol/L (3.5-5.1); Protein, Total 6.2 g/dL (5.8-8.1); Sodium 141 mmol/L (136-145)
[2020-10-31 02:04] LABS: #Eosinphils 0.3 thou/uL (0.0-0.7); #Lymphocytes 1.5 thou/uL (1.20-3.40); #Monocytes 0.5 thou/uL (0.11-0.59); #Neutrophils 5.3 thou/uL (1.40-6.50); %Basophils 0.5 % (0.0-1.0); %Eosinophils 4.5 % (0.0-10.0); %Lymphocytes 18.9 % (21.0-51.0); %Monocytes 6.4 % (0.0-10.0); %Neutrophils 69.7 % (42.0-75.0); Mean Platelet Volume 11.8 fL (7.4-10.4); Platelet Count 96 thou/uL (130-400); Platelet Morphology Comment Appears Decreased
[2020-10-31 02:14] LABS: INR-International Normal Ratio 1.4; PTT 39.3 sec (22.9-36.1); Prothrombin Time 17.3 sec (12.0-14.7)
--- NOTE | 2020-10-31 07:44 | RAD ---
XR Chest 1 View Portable History: Dyspnea Comparison: Radiograph March 12, 2020 Findings: Heart size mildly enlarged. Trace effusions. Mild pulmonary venous congestion. No pneumotho rax. AICD/pacer electrode tips project over the right atrium, right ventricle, and coronary sinus. No pneumothorax. Impression: Cardiomegaly with early pulmonary edema.
== END 2020-10-31 04:55 | disposition home or self-care (01) ==
LOC: ERS 00:51
DX: J44.1 Chronic obstructive pulmonary disease with (acute) exacerbation (principal); I50.9 Heart failure, unspecified; Z86.73 Personal history of transient ischemic attack (TIA), and cerebral infarction without residual deficits; F17.210 Nicotine dependence, cigarettes, uncomplicated
CPT/HCPCS: 36415; 71045; 80053; 83880; 84484; 85025; 85610; 85730; 93005; J7512

== ENCOUNTER 2020-11-05 10:05 | Inpatient (IN) | payer MEDICARE, BC ==
[2020-11-05] MEDS ORDERED: Diltiazem 125 MG/25 ML ONE (10:24)
[2020-11-05 10:50] LABS: Hemoglobin 13.7 g/dL (14.0-18.0); Mean Corpuscular HGB CONC 31.8 g/dL (32.0-36.0); Mean Corpuscular Hemoglobin 31.2 pg (27.0-31.0); Mean Corpuscular Volume 98.1 fL (78.0-98.0); RBC Distribution Width 12.6 % (11.5-14.5); Red Blood Cell (RBC) Count 4.39 mill/uL (4.70-6.10)
--- NOTE | 2020-11-05 10:50 | RAD ---
Exam: Chest one view HISTORY:Dyspnea. Comparison: 10/31/2020, 03/12/2020 FINDINGS: Cardiac silhouette:Stable cardiomegaly. Stable 3 lead left-sided defibrillator. Aorta: Stable atherosclerosis and elongation Pulmonary vessels: Normal Costophrenic angles: Clear LUNGS: Hyperinflation with chronic lung parenchymal changes. No mass or consolidation. There do appea r to be prominent linear densities suggesting interstitial edema. Pneumothorax: None Osseous abnormalities: None IMPRESSION: 1. Cardiomegaly with evidence of congestive heart failure.
[2020-11-05 11:04] LABS: PTT 28.2 sec (22.9-36.1); Prothrombin Time 13.5 sec (12.0-14.7)
[2020-11-05 11:09] LABS: ALT (SGPT) 51 U/L (8-55); AST (SGOT) 28 U/L (5-34); Albumin 4.2 g/dL (3.4-4.8); Alkaline Phosphatase 90 U/L (40-110); Anion Gap 14 mmol/L (10-20); BUN (Urea Nitrogen) 19 mg/dL (8.4-25.7); Bilirubin, Total 0.6 mg/dL (0.2-1.2); Calc. Creatinine Clearance 0 mL/min (70-130); Calcium 8.7 mg/dL (7.8-10.44); Carbon Dioxide 27 mmol/L (23-31); Chloride 105 mmol/L (98-107); Globulin 3.1 g/dL (2.4-3.5); Glucose 121 mg/dL (83-110); Potassium 3.7 mmol/L (3.5-5.1); Protein, Total 7.3 g/dL (5.8-8.1); Sodium 142 mmol/L (136-145)
[2020-11-05 11:10] LABS: Band 1 % (5-11); Eosinophils 2 % (0-10); Large Platelets SLIGHT; Lymphocytes 50 % (21-51); MDiff Complete? YES; Macrocytosis SLIGHT = 6-15 cells (100X) (0-5/hpf); Mean Platelet Volume 12.1 fL (7.4-10.4); Monocytes 8 % (0-10); Neutrophil 34 % (42-75); Platelet Count 109 thou/uL (130-400); Platelet Morphology Comment Appears Decreased; Reactive Lymphocytes 5 % (0-10); White Blood Cell (WBC) Count 13.8 thou/uL (4.8-10.8)
[2020-11-05] MEDS ORDERED: Furosemide 40 MG/4 ML VIAL ONE (11:14)
[2020-11-05 11:29] LABS: Actual Bicarbonate (HCO3a) 22.9 mEq/L (22-28); Analyzer IN Cardio ER; Base Excess (BEa) -3.4 mEq/L (-2.0 to +3.0); CO2 Tension 46.1 mmHg (35.0-45.0); Calcium, Ionized (arterial) 1.15 mmol/L (1.12-1.30); Hemoglobin (Hb) 12.8 g/dL (14.0-18.0); O2 Tension (PaO2), arterial 97.8 mmHg (> 70.0); Potassium - ABG Lab 3.73 mmol/L (3.70-5.30); pH, Arterial 7.31 (7.35-7.45)
[2020-11-05 11:31] LABS: Puncture Site LRA
[2020-11-05 11:32] LABS: ALV-art Gradient 72.735 mmHg (0-20)
[2020-11-05 11:32] LABS: CKMB 2.1 ng/mL (0-6.6)
[2020-11-05] MEDS ORDERED: Acetaminophen 325 MG TAB PO PRN (11:38)
[2020-11-05] MEDS ORDERED: Ondansetron PF 4 MG/2 ML Vial IVP PRN (11:38)
[2020-11-05] MEDS ORDERED: Diltiazem 125 MG in Sodium Chloride 0.9% 100 ML IVPB SCH (12:00)
[2020-11-05 12:11] LABS: SARS-CoV-2 NAA Rapid Test Not Detected (NotDetected)
--- NOTE | 2020-11-05 13:09 | HP ---
CHIEF COMPLAINT: Shortness of breath. HISTORY OF PRESENT ILLNESS: The patient is a 75-year-old male with past medical history of cardiomyopathy with EF of 20% to 30%, status post AICD; atrial fibrillation, on Eliquis; CVA and chronic back pain in addition to COPD. He presented to the hospital with worsening shortness of breath over the past week. The patient stated that his shortness of breath is associated with nonproductive cough, but denies chest pain, fever, chills, or dizziness. In the ER, the patient was found to be in atrial fibrillation with rapid ventricular response. His heart rate responded to IV diltiazem. Rapid COVID test was obtained and was negative. Chest x-ray revealed cardiomegaly and pulmonary edema. REVIEW OF SYSTEMS: Negative except as noted in HPI. PAST MEDICAL HISTORY: As noted above. PAST SURGICAL HISTORY: Includes knee surgery and pacemaker placement. SOCIAL HISTORY: The patient denies alcohol use or illicit drug use. He is a current tobacco smoker. FAMILY HISTORY: Noncontributory for his current presentation. PHYSICAL EXAMINATION: GENERAL: The patient is alert and oriented x3. HEENT: Head is normocephalic and atraumatic. Extraocular muscles are intact. NECK: Supple. CHEST: Auscultation reveals crackles bilaterally. CARDIOVASCULAR: Irregularly irregular rhythm with normal rate. No murmurs, rubs, or gallops. ABDOMEN: Soft, nontender, nondistended. NEUROLOGIC: Nonfocal. PERTINENT DATA: CBC revealed evidence of mild leukocytosis with white cell count of 13.8. BMP was unremarkable. Troponin level was slightly elevated at 0.04. ABG revealed mild respiratory acidosis. ASSESSMENT: 1. Acute on chronic respiratory failure with hypoxia. 2. Acute on chronic heart failure with reduced ejection fraction. 3. Atrial fibrillation with rapid ventricular response. 4. Chronic obstructive pulmonary disease, does not appear to be in exacerbation at this time. PLAN: The patient will be admitted to [facility]. Diltiazem drip has been initiated by ER. I will start the patient on low-salt diet, 1800 mL fluid restriction, and Lasix 40 mg IV twice daily. Strict intake and output. Obtain serial troponins. The elevated troponin level appears to be due to demand ischemia given his CHF and atrial fibrillation with RVR on presentation. Resume his home medications of carvedilol, lisinopril, digoxin, and Eliquis. Consult Cardiology. Job ID: [id number]
[2020-11-05 13:56] LABS: Lactic Acid 2.3 mmol/L (0.5-2.2)
[2020-11-05] MEDS: Ipratropium Bromide 2.5 ml Neb NEB SCH ×3 (15:09→22:13)
[2020-11-05] MEDS: Furosemide 40 MG/4 ML VIAL SLOW IVP SCH (15:21)
[2020-11-05] MEDS ORDERED: FLU VACC QS2020-21(65YR UP)/PF 240 MCG/0.7 ML SYRINGE IM ONE (16:00)
--- NOTE | 2020-11-05 17:46 | CON ---
DATE OF CONSULTATION: HISTORY OF PRESENT ILLNESS: The patient is a 75-year-old gentleman, who presents for evaluation of increasing dyspnea. The patient has a long history of a cardiomyopathy. He was seen in 2009 with atrial fibrillation. He had a cerebellar CVA after the heart catheterization. The patient also had placement of ICD in April of 2013. The patient subsequently had an upgrade to a BiV AICD. The patient has been noncompliant with his followup. He underwent a repeat cardiac catheterization He was found to have a severe decrease in left ventricular systolic function. The patient had a 20% mid LAD lesion and 10% OM lesion. The patient was subsequently placed on medical therapy. He was readmitted with rapid atrial fibrillation in March of 2004. He presents once again with acute onset of dyspnea. He denied having any chest discomfort. PAST MEDICAL HISTORY: 1. Cardiomyopathy. 2. Mild coronary artery disease. 3. Permanent atrial fibrillation. 4. History of AICD placement. 5. Hypertension. 6. COPD. PAST SURGICAL HISTORY: None. ALLERGIES: NO KNOWN DRUG ALLERGIES. MEDICATIONS: 1. Lisinopril 2.5 daily. 2. Lasix 40 daily. 3. Proscar 5 daily. 4. Digoxin 0.25 daily. 5. Coreg 6.25 b.i.d. 6. Lipitor 40 at bedtime. 7. Eliquis 5 b.i.d. SOCIAL HISTORY: Long history of tobacco abuse. ALLERGIES: NO KNOWN DRUG ALLERGIES. FAMILY HISTORY: Positive family history of coronary artery disease. REVIEW OF SYSTEMS: Ten-point system otherwise unremarkable. No history of easy bruising or bleeding. PHYSICAL EXAMINATION: GENERAL: A well-developed gentleman, in no acute distress. VITAL SIGNS: Blood pressure 98/66. NECK: Showed no jugular venous distention. LUNGS: Have decreased breath sounds bilateral. HEART: Regular rate and rhythm. Normal S1 and S2 with no murmurs. ABDOMEN: Nondistended. EXTREMITIES: Show trace edema. VASCULAR: Radial pulse 2+. LABORATORY DATA: Sodium 142, potassium 3.7, chloride 105, bicarbonate 27, BUN 19, creatinine 1.0, glucose 121. Troponin 0.048. White blood cell count is 13.8, hemoglobin 13.7, hematocrit 43.1, and platelets are 109. EKG atrial fibrillation with a rapid ventricular response with a marked ST-T wave abnormality. IMPRESSION: 1. Atrial fibrillation with a rapid ventricular response. 2. Cardiomyopathy. 3. History of AICD placement. 4. COPD. 5. Tobacco abuse. This gentleman presented with rapid atrial fibrillation. It is unclear if the patient has been taking his medications. The patient is apparently on Eliquis. From a cardiac standpoint,I would continue to try to increase the dose of his Coreg. I would also try to switch the patient to Entresto for survival benefit instead of lisinopril. The patient also should be on Spironolactone. We will follow this patient with you through his hospitalization. Job ID: [id number] MARIE
[2020-11-05] MEDS: Apixaban 5 MG TAB PO SCH (20:18)
[2020-11-05] MEDS: Atorvastatin Calcium 40 MG TAB PO SCH (20:18)
[2020-11-05] MEDS: Carvedilol 6.25 MG TAB PO SCH (22:09)
[2020-11-06] MEDS: Ipratropium Bromide 2.5 ml Neb NEB SCH ×6 (01:59→22:20)
[2020-11-06 04:11] LABS: #Lymphocytes 2.3 thou/uL (1.20-3.40); #Monocytes 0.8 thou/uL (0.11-0.59); #Neutrophils 7.5 thou/uL (1.40-6.50); %Basophils 0.4 % (0.0-1.0); %Eosinophils 0.3 % (0.0-10.0); %Lymphocytes 21.3 % (21.0-51.0); %Monocytes 7.6 % (0.0-10.0); %Neutrophils 70.4 % (42.0-75.0); Mean Corpuscular HGB CONC 33.2 g/dL (32.0-36.0); Mean Corpuscular Volume 96.5 fL (78.0-98.0); Mean Platelet Volume 11.7 fL (7.4-10.4); Platelet Count 93 thou/uL (130-400); RBC Distribution Width 12.6 % (11.5-14.5); Red Blood Cell (RBC) Count 3.74 mill/uL (4.70-6.10); White Blood Cell (WBC) Count 10.6 thou/uL (4.8-10.8)
[2020-11-06 04:31] LABS: Anion Gap 10 mmol/L (10-20); BUN (Urea Nitrogen) 21 mg/dL (8.4-25.7); Calc. Creatinine Clearance 69 mL/min (70-130); Calcium 8.1 mg/dL (7.8-10.44); Carbon Dioxide 31 mmol/L (23-31); Chloride 102 mmol/L (98-107); Glucose 106 mg/dL (83-110); Sodium 139 mmol/L (136-145)
[2020-11-06] MEDS: Furosemide 40 MG/4 ML VIAL SLOW IVP SCH ×2 (06:21→14:45)
[2020-11-06] MEDS: Potassium Chloride 20 MEQ TAB PO SCH (07:53)
[2020-11-06] MEDS: Digoxin 0.25 MG TAB PO SCH (07:53)
[2020-11-06] MEDS: Apixaban 5 MG TAB PO SCH ×2 (07:53→21:22)
[2020-11-06] MEDS: Carvedilol 6.25 MG TAB PO SCH ×2 (07:53→21:23)
[2020-11-06] MEDS: Finasteride 5 MG TAB PO SCH (07:53)
[2020-11-06] MEDS ORDERED: Spironolactone 25 MG TAB PO SCH ×3 (08:00→09:15)
[2020-11-06] MEDS ORDERED: Lisinopril 2.5 MG TAB PO SCH (09:00)
--- NOTE | 2020-11-06 09:07 | PDOC.HOSPP ---
- Subjective Encounter Date: 11/06/20 (f/u decompensated HF) Encounter Time: 09:05 Subjective: pt without complaints. Reports he is ready to go home. He denies any difficulty breathing, chest pain, n/v. He states he is going to live until 89 years old. 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 - Objective Vital Signs & Weight: Vital Signs (12 hours) Temp Pulse Resp BP Pulse Ox 11/06/20 07:53 75 104/73 11/06/20 07:18 98.4 F 11/06/20 04:00 98.4 F 11/06/20 01:59 81 18 100 11/06/20 00:00 98.0 F 11/05/20 22:13 90 17 100 Weight Weight 170 lb 3 oz Most Recent Monitor Data Heart Rate from ECG 84 NIBP 101/51 NIBP BP-Mean 67 Respiration from ECG 21 SpO2 100 I&O: 11/05/20 11/06/20 11/07/20 06:59 06:59 06:59 Intake Total 1515 Output Total 1825 Balance -310 Result Diagrams: 11/06/20 04:00 11/06/20 04:00 EKG Reviewed by me: Yes (tele - irregular rhythm - intermittent pacing, bundle branch block) Hospitalist ROS - Medication Medications: Active Medications Generic Name Dose Route Start Last Admin Trade Name Freq PRN Reason Stop Dose Admin Apixaban 5 mg 11/05/20 21:00 11/06/20 07:53 Apixaban 5 Mg Tab PO 5 mg BID RAFFY Administration Atorvastatin Calcium 40 mg 11/05/20 21:00 11/05/20 20:18 Atorvastatin Calcium 40 Mg Tab PO 40 mg HS RAFFY Administration Carvedilol 6.25 mg 11/05/20 21:00 11/06/20 07:53 Carvedilol 6.25 Mg Tab PO 6.25 mg BID RAFFY Administration Digoxin 0.25 mg 11/06/20 09:00 11/06/20 07:53 Digoxin 0.25 Mg Tab PO 0.25 mg DAILY RAFFY Administration Finasteride 5 mg 11/06/20 09:00 11/06/20 07:53 Finasteride 5 Mg Tab PO 5 mg DAILY RAFFY Administration Furosemide 40 mg 11/05/20 14:00 11/06/20 06:21 Furosemide 40 Mg/4 Ml Vial SLOW IVP 40 mg 0600,1400 RAFFY Administration Ipratropium [place] 2.5 ml 11/05/20 14:30 11/06/20 01:59 Ipratropium [place] 2.5 Ml Neb NEB 2.5 ml [id number] RAFFY Administration Potassium Chloride 20 meq 11/06/20 08:00 11/06/20 07:53 Potassium Chloride 20 Meq Tab PO 20 meq QAM-WM RAFFY Administration - Exam General Appearance: NAD Heart: irregular Heart - other findings: distant heart sounds, no significant murmur Respiratory: no wheezes, no rales, no ronchi Gastrointestinal: soft, non-tender, non-distended, normal bowel sounds Extremities: no cyanosis, no clubbing, no edema Hosp A/P (1) Acute on chronic systolic (congestive) heart failure Code(s): I50.23 - ACUTE ON CHRONIC SYSTOLIC (CONGESTIVE) HEART FAILURE Status: Acute (2) Anemia Code(s): D64.9 - ANEMIA, UNSPECIFIED Status: Chronic Qualifiers: Anemia type: unspecified type Qualified Code(s): D64.9 - Anemia, unspecified (3) Atrial fibrillation Code(s): I48.91 - UNSPECIFIED ATRIAL FIBRILLATION Status: Chronic Qualifiers: Atrial fibrillation type: paroxysmal Qualified Code(s): I48.0 - Paroxysmal atrial fibrillation (4) COPD (chronic obstructive pulmonary disease) Status: Chronic Qualifiers: COPD type: chronic bronchitis - Plan Acute on chronic systolic heart failure - appreciate Cardiology consult - now on beta-klever, entresto, spironolactone - on IV lasix BID - hold parameters placed on entresto and spironolactone - follow bp's - transfer to tele Anemia - chronic and stable COPD - no signs of decompensation Specifications Checker consult pt/ot consults Metcalf cath in place - uncertain why this was placed. Will plan for removal yrn rrow dvt prophy - eliquis gi prophy - not indicated code status full Discussed comment documented in history with RN for her awareness and safety reviewed plan of care with patient, no questions or further needs at end of eval. Anticipate d/c in the next few days when meds optimized and bp tolerated
[2020-11-06] MEDS: Atorvastatin Calcium 40 MG TAB PO SCH (21:22)
--- NOTE | 2020-11-07 00:50 | PDOC.EVN ---
Event Note - Event Note Event Note: Received call from nursing that patient's blood pressure was 74/40 and patient was asymptomatic. Patient was placed in Trendelenburg. Had received initial dose of Entresto tonight along with Coreg. Initial blood pressure this evening was 120/55. Has been receiving IV Lasix today and has had an output of 4200 mL this evening. We will recheck electrolytes in a.m. Normal saline 250 mL one- time dose ordered at this time for blood pressure.
[2020-11-07] MEDS ORDERED: Sodium Chloride 0.9% 250 ML IV SCH ×5 (01:15→19:30)
[2020-11-07] MEDS: Ipratropium Bromide 2.5 ml Neb NEB SCH ×6 (02:44→22:36)
[2020-11-07 05:13] LABS: Anion Gap 15 mmol/L (10-20); BUN (Urea Nitrogen) 22 mg/dL (8.4-25.7); Calc. Creatinine Clearance 68 mL/min (70-130); Carbon Dioxide 27 mmol/L (23-31); Chloride 99 mmol/L (98-107); Glucose 94 mg/dL (83-110); Magnesium 2.1 mg/dL (1.6-2.6); Potassium 3.9 mmol/L (3.5-5.1); Sodium 137 mmol/L (136-145)
[2020-11-07 05:15] LABS: #Basophils 0.1 thou/uL (0.0-0.2); #Eosinphils 0.2 thou/uL (0.0-0.7); #Lymphocytes 3.4 thou/uL (1.20-3.40); #Monocytes 0.7 thou/uL (0.11-0.59); #Neutrophils 6.3 thou/uL (1.40-6.50); %Basophils 0.6 % (0.0-1.0); %Eosinophils 2.2 % (0.0-10.0); %Lymphocytes 31.5 % (21.0-51.0); %Monocytes 6.6 % (0.0-10.0); Hemoglobin 12.5 g/dL (14.0-18.0); Mean Corpuscular HGB CONC 32.2 g/dL (32.0-36.0); Mean Corpuscular Hemoglobin 31.1 pg (27.0-31.0); Mean Corpuscular Volume 96.5 fL (78.0-98.0); Mean Platelet Volume 11.9 fL (7.4-10.4); Platelet Count 98 thou/uL (130-400); RBC Distribution Width 12.3 % (11.5-14.5); Red Blood Cell (RBC) Count 4.03 mill/uL (4.70-6.10); White Blood Cell (WBC) Count 10.7 thou/uL (4.8-10.8)
[2020-11-07] MEDS: Furosemide 40 MG/4 ML VIAL SLOW IVP SCH (08:44)
[2020-11-07] MEDS: Apixaban 5 MG TAB PO SCH ×2 (08:51→21:57)
[2020-11-07] MEDS: Spironolactone 25 MG TAB PO SCH ×2 (08:51→14:38)
[2020-11-07] MEDS: Digoxin 0.25 MG TAB PO SCH (08:51)
[2020-11-07] MEDS: Potassium Chloride 20 MEQ TAB PO SCH (08:51)
[2020-11-07] MEDS: Carvedilol 3.125 MG TAB PO SCH ×3 (08:51→21:57)
[2020-11-07] MEDS: Finasteride 5 MG TAB PO SCH (08:52)
--- NOTE | 2020-11-07 11:11 | PDOC.HOSPP ---
- Subjective Encounter Date: 11/07/20 Encounter Time: 11:09 Subjective: Mr. Bermudez was seen today in follow-up of CHF exacerbation. He does not have any complaints. He denies feeling short of breath. He says he wants to go home. His blood pressure has been noted to be low. - Objective Vital Signs & Weight: Vital Signs (12 hours) Temp Pulse Resp BP Pulse Ox 11/07/20 11:03 98.0 F 80 16 84/58 L 96 11/07/20 10:47 86/56 L 11/07/20 10:24 85 12 11/07/20 08:44 90/52 L 11/07/20 07:40 98.5 F 80 18 88/58 L 95 11/07/20 06:31 89/52 L 11/07/20 05:35 89/66 L 11/07/20 05:16 79 16 96 11/07/20 05:07 82/58 L 11/07/20 04:35 95/55 L 11/07/20 04:10 85/61 L 11/07/20 03:08 98.1 F 80 16 84/54 L 95 11/07/20 02:51 80 86/55 L 11/07/20 02:44 81 16 11/07/20 02:00 80 88/58 L 11/07/20 01:33 80 92/57 L 11/07/20 00:00 72 74/44 L Weight Admit Weight 170 lb 3.008 oz Weight 163 lb 9 oz Most Recent Monitor Data Heart Rate from ECG 85 NIBP 92/65 NIBP BP-Mean 74 Respiration from ECG 12 SpO2 100 I&O: 11/06/20 11/07/20 11/08/20 06:59 06:59 06:59 Intake Total 1515 1820 Output Total 1823 9332 Balance -310 -7678 Result Diagrams: 11/07/20 04:22 11/07/20 04:22 Hospitalist ROS - Medication Medications: Active Medications Generic Name Dose Route Start Last Admin Trade Name Freq PRN Reason Stop Dose Admin Apixaban 5 mg 11/05/20 21:00 11/07/20 08:51 Apixaban 5 Mg Tab PO 5 mg BID RAFFY Administration Atorvastatin Calcium 40 mg 11/05/20 21:00 11/06/20 21:22 Atorvastatin Calcium 40 Mg Tab PO 40 mg HS RAFFY Administration Digoxin 0.25 mg 11/06/20 09:00 11/07/20 08:51 Digoxin 0.25 Mg Tab PO 0.25 mg DAILY RAFFY Administration Finasteride 5 mg 11/06/20 09:00 11/07/20 08:52 Finasteride 5 Mg Tab PO 5 mg DAILY RAFFY Administration Ipratropium [place] 2.5 ml 11/05/20 14:30 11/07/20 10:24 Ipratropium [place] 2.5 Ml Neb NEB 2.5 ml [id number] RAFFY Administration Potassium Chloride 20 meq 11/06/20 08:00 11/07/20 08:51 Potassium Chloride 20 Meq Tab PO 20 meq QAM-WM RAFFY Administration Sacubitril/Valsartan 0.5 tab 11/06/20 21:00 11/07/20 08:46 Sacubitril 24mg/Valsartan 26mg Tab PO Not Given BID RAFFY Sacubitril/Valsartan 0.5 tab 11/07/20 09:00 11/07/20 08:46 Sacubitril 24mg/Valsartan 26mg Tab PO Not Given BID RAFFY Sodium Chloride 10 ml 11/06/20 21:00 11/07/20 08:52 Flush - Normal Saline 10 Ml Syringe IVF 10 ml Q12HR RAFFY Administration - Exam General Appearance: NAD Eye: PERRL, anicteric sclera Heart: RRR, no murmur, no gallops, no rubs, normal peripheral pulses Respiratory: CTAB, no wheezes, no rales, no ronchi, normal chest expansion, no t achypnea Gastrointestinal: soft, non-tender, non-distended, normal bowel sounds Extremities: no cyanosis, no clubbing, no edema Extremities - other findings: + good distal pulses bilaterally, no lesions Hosp A/P (1) Acute on chronic systolic (congestive) heart failure Code(s): I50.23 - ACUTE ON CHRONIC SYSTOLIC (CONGESTIVE) HEART FAILURE Status: Acute (2) Atrial fibrillation Code(s): I48.91 - UNSPECIFIED ATRIAL FIBRILLATION Status: Chronic Qualifiers: Atrial fibrillation type: paroxysmal Qualified Code(s): I48.0 - Paroxysmal atrial fibrillation (3) COPD (chronic obstructive pulmonary disease) Status: Chronic Qualifiers: COPD type: chronic bronchitis (4) Chronic anticoagulation Code(s): Z79.01 - CLIMATE CHANGE ANALYST (CURRENT) USE OF ANTICOAGULANTS Status: Chronic (5) GERD (gastroesophageal reflux disease) Code(s): K21.9 - GASTRO-ESOPHAGEAL REFLUX DISEASE WITHOUT ESOPHAGITIS Status: Chronic Qualifiers: Esophagitis presence: with esophagitis (6) HTN (hypertension) Code(s): I10 - ESSENTIAL (PRIMARY) HYPERTENSION Status: Chronic Qualifiers: Hypertension type: essential hypertension Qualified Code(s): I10 - Essential (primary) hypertension - Plan * Acute on chronic systolic heart failure- he may actually be a bit volume depleted. Will give a 250ml NS bolus * He has been started on Entresto and the dose has been reduced * AFIB- his heart rate is stable-will continue Eiquis for anticoagulation * HTN- blood pressure currently is low * GERD_ stable
[2020-11-07] MEDS: Atorvastatin Calcium 40 MG TAB PO SCH (21:57)
[2020-11-08] MEDS: Ipratropium Bromide 2.5 ml Neb NEB SCH ×4 (02:18→15:01)
[2020-11-08 05:32] LABS: #Basophils 0.1 thou/uL (0.0-0.2); #Eosinphils 0.4 thou/uL (0.0-0.7); #Lymphocytes 2.8 thou/uL (1.20-3.40); #Monocytes 0.8 thou/uL (0.11-0.59); #Neutrophils 5.5 thou/uL (1.40-6.50); %Basophils 0.6 % (0.0-1.0); %Eosinophils 3.9 % (0.0-10.0); %Lymphocytes 29.6 % (21.0-51.0); %Monocytes 8.2 % (0.0-10.0); %Neutrophils 57.8 % (42.0-75.0); Anion Gap 13 mmol/L (10-20); BUN (Urea Nitrogen) 25 mg/dL (8.4-25.7); Calc. Creatinine Clearance 68 mL/min (70-130); Calcium 8.4 mg/dL (7.8-10.44); Carbon Dioxide 24 mmol/L (23-31); Chloride 104 mmol/L (98-107); Glucose 107 mg/dL (83-110); Hemoglobin 13.2 g/dL (14.0-18.0); Mean Corpuscular HGB CONC 32.4 g/dL (32.0-36.0); Mean Corpuscular Volume 95.9 fL (78.0-98.0); Mean Platelet Volume 11.9 fL (7.4-10.4); Platelet Count 98 thou/uL (130-400); Potassium 4.3 mmol/L (3.5-5.1); RBC Distribution Width 12.4 % (11.5-14.5); Red Blood Cell (RBC) Count 4.26 mill/uL (4.70-6.10); Sodium 137 mmol/L (136-145); White Blood Cell (WBC) Count 9.5 thou/uL (4.8-10.8)
--- NOTE | 2020-11-08 07:25 | PDOC.HOSPP ---
- Subjective Encounter Date: 11/08/20 Encounter Time: 10:00 Subjective: Patient without complaints. Still hypotensive but no symptoms. Hasn't been out of bed yet. Patient wanting to go home. - Objective Vital Signs & Weight: Vital Signs (12 hours) Temp Pulse Resp BP Pulse Ox 11/08/20 06:55 88 14 96 11/08/20 02:18 16 11/07/20 22:36 16 11/07/20 20:20 97.9 F 76 18 90/60 92 L Weight Admit Weight 170 lb 3.008 oz Weight 163 lb 9 oz Most Recent Monitor Data Heart Rate from ECG 85 NIBP 92/65 NIBP BP-Mean 74 Respiration from ECG 12 SpO2 100 I&O: 11/07/20 11/08/20 11/09/20 06:59 06:59 06:59 Intake Total 1820 490 Output Total 5125 850 Balance -7205 360 Result Diagrams: 11/08/20 04:14 11/08/20 04:14 Hospitalist ROS - Review of Systems Constitutional: denies: fever, chills Respiratory: denies: cough, shortness of breath Cardiovascular: denies: chest pain, palpitations Gastrointestinal: denies: nausea, vomiting, abdominal pain - Medication Medications: Active Medications Generic Name Dose Route Start Last Admin Trade Name Freq PRN Reason Stop Dose Admin Acetaminophen 650 mg 11/05/20 11:38 11/07/20 21:57 Acetaminophen 325 Mg Tab PO 650 mg Q4H PRN Administration Headache/Fever/Mild Pain (1-3) Apixaban 5 mg 11/05/20 21:00 11/07/20 21:57 Apixaban 5 Mg Tab PO 5 mg BID RAFFY Administration Atorvastatin Calcium 40 mg 11/05/20 21:00 11/07/20 21:57 Atorvastatin Calcium 40 Mg Tab PO 40 mg HS RAFFY Administration Carvedilol 3.125 mg 11/07/20 09:00 11/07/20 21:57 Carvedilol 3.125 Mg Tab PO 3.125 mg BID RAFFY Administration Digoxin 0.25 mg 11/06/20 09:00 11/07/20 08:51 Digoxin 0.25 Mg Tab PO 0.25 mg DAILY RAFFY Administration Finasteride 5 mg 11/06/20 09:00 11/07/20 08:52 Finasteride 5 Mg Tab PO 5 mg DAILY RAFFY Administration Ipratropium Melvin 2.5 ml 11/05/20 14:30 11/08/20 06:55 Ipratropium Melvin 2.5 Ml Neb NEB 2.5 ml [id number] RAFFY Administration Potassium Chloride 20 meq 11/06/20 08:00 11/07/20 08:51 Potassium Chloride 20 Meq Tab PO 20 meq QAM-WM RAFFY Administration Sacubitril/Valsartan 0.5 tab 11/07/20 09:00 11/07/20 22:05 Sacubitril 24mg/Valsartan 26mg Tab PO 0.5 tab BID RAFFY Administration Sodium Chloride 10 ml 11/06/20 21:00 11/07/20 08:52 Flush - Normal Saline 10 Ml Syringe IVF 10 ml Q12HR RAFFY Administration Spironolactone 25 mg 11/07/20 08:00 11/07/20 14:38 Spironolactone 25 Mg Tab PO Not Given QAM-WM RAFFY - Exam General Appearance: NAD, awake alert ENT: moist mucosa Heart: RRR, no murmur, no gallops, no rubs Respiratory: CTAB, no wheezes, no rales, no ronchi Gastrointestinal: soft, non-tender, non-distended, normal bowel sounds Extremities: no edema Psychiatric: normal affect, normal behavior, A&O x 3 Hosp A/P - Plan (1) Acute on chronic systolic (congestive) heart failure Code(s): I50.23 - ACUTE ON CHRONIC SYSTOLIC (CONGESTIVE) HEART FAILURE Status: Acute (2) Atrial fibrillation Code(s): I48.91 - UNSPECIFIED ATRIAL FIBRILLATION Status: Chronic Qualifiers: Atrial fibrillation type: paroxysmal Qualified Code(s): I48.0 - Paroxysmal atrial fibrillation (3) COPD (chronic obstructive pulmonary disease) Status: Chronic Qualifiers: COPD type: chronic bronchitis (4) Chronic anticoagulation Code(s): Z79.01 - CARE HOME (CURRENT) USE OF ANTICOAGULANTS Status: Chronic (5) GERD (gastroesophageal reflux disease) Code(s): K21.9 - GASTRO-ESOPHAGEAL REFLUX DISEASE WITHOUT ESOPHAGITIS Status: Chronic Qualifiers: Esophagitis presence: with esophagitis (6) HTN (hypertension) Code(s): I10 - ESSENTIAL (PRIMARY) HYPERTENSION Status: Chronic Qualifiers: Hypertension type: essential hypertension Qualified Code(s): I10 - Essential (primary) hypertension - Plan * Acute on chronic systolic heart failure- over diuresed, Lasix d/c'd and got a little IV fluids yesterday * He has been started on Entresto at low dose * AFIB- his heart rate is stable-will continue Eiquis for anticoagulation * HTN- blood pressure remains a bit low, though asymptomatic, will follow cardiology recommendations * GERD- stable
[2020-11-08] MEDS: Finasteride 5 MG TAB PO SCH (08:22)
[2020-11-08] MEDS: Carvedilol 3.125 MG TAB PO SCH ×2 (08:22→21:42)
[2020-11-08] MEDS: Potassium Chloride 20 MEQ TAB PO SCH (08:22)
[2020-11-08] MEDS: Apixaban 5 MG TAB PO SCH ×2 (08:22→21:42)
[2020-11-08] MEDS: Spironolactone 25 MG TAB PO SCH (08:23)
[2020-11-08] MEDS: Digoxin 0.25 MG TAB PO SCH (08:23)
[2020-11-08 09:12] LABS: Cardiac Risk 2.8 (Less than 4.5)
[2020-11-08] MEDS ORDERED: Sodium Chloride 0.9% 250 ML IV SCH (13:45)
[2020-11-08] MEDS ORDERED: Ipratropium Bromide 2.5 ml Neb NEB PRN (14:50)
[2020-11-08] MEDS ORDERED: Digoxin 0.25 MG TAB PO SCH (18:00)
--- NOTE | 2020-11-08 21:36 | PDOC.EVN ---
Event Note - Event Note Event Note: Notified by RN, patient with 6 beats of vtach. Asymptomatic. BP 70s systolic. Reportedly ranging in 70s-80s throughout the day with small boluses given due to hx of CHF. Entresto held tonight per cardiology parameters. Will check lytes including mg+ and replace as necessary. Manual BP requested as well.
[2020-11-08] MEDS: Atorvastatin Calcium 40 MG TAB PO SCH (21:42)
[2020-11-08 22:29] LABS: Lactic Acid 1.1 mmol/L (0.5-2.2)
[2020-11-08 22:33] LABS: Anion Gap 12 mmol/L (10-20); Carbon Dioxide 25 mmol/L (23-31); Chloride 105 mmol/L (98-107); Magnesium 2.3 mg/dL (1.6-2.6); Potassium 4.5 mmol/L (3.5-5.1); Sodium 137 mmol/L (136-145)
[2020-11-08 22:56] LABS: CKMB 1.1 ng/mL (0-6.6)
[2020-11-09 04:42] LABS: #Eosinphils 0.4 thou/uL (0.0-0.7); #Lymphocytes 2.5 thou/uL (1.20-3.40); #Monocytes 0.7 thou/uL (0.11-0.59); #Neutrophils 5.2 thou/uL (1.40-6.50); %Basophils 0.3 % (0.0-1.0); %Eosinophils 4.4 % (0.0-10.0); %Lymphocytes 28.4 % (21.0-51.0); %Monocytes 7.5 % (0.0-10.0); %Neutrophils 59.3 % (42.0-75.0); Hemoglobin 13.6 g/dL (14.0-18.0); Mean Corpuscular HGB CONC 32.9 g/dL (32.0-36.0); Mean Corpuscular Hemoglobin 31.5 pg (27.0-31.0); Mean Platelet Volume 11.7 fL (7.4-10.4); Platelet Count 95 thou/uL (130-400); RBC Distribution Width 12.4 % (11.5-14.5); Red Blood Cell (RBC) Count 4.32 mill/uL (4.70-6.10); White Blood Cell (WBC) Count 8.7 thou/uL (4.8-10.8)
[2020-11-09 04:58] LABS: Anion Gap 13 mmol/L (10-20); BUN (Urea Nitrogen) 21 mg/dL (8.4-25.7); Calc. Creatinine Clearance 78 mL/min (70-130); Calcium 8.4 mg/dL (7.8-10.44); Carbon Dioxide 24 mmol/L (23-31); Chloride 106 mmol/L (98-107); Glucose 105 mg/dL (83-110); Potassium 4.6 mmol/L (3.5-5.1); Sodium 138 mmol/L (136-145)
--- NOTE | 2020-11-09 07:16 | PDOC.HOSPP ---
- Subjective Encounter Date: 11/09/20 Encounter Time: 10:00 Subjective: 6-beats of Vtach last night, asymptomatic. BP continued to run low inspite of holding Entresto, but eventually up to 100 this AM. - Objective Vital Signs & Weight: Vital Signs (12 hours) Temp Pulse Resp BP Pulse Ox 11/09/20 04:21 98.4 F 80 16 86/58 L 97 11/08/20 20:00 97.8 F 80 16 82/52 L 95 Weight Admit Weight 170 lb 3.008 oz Weight 167 lb Most Recent Monitor Data Heart Rate from ECG 85 NIBP 92/65 NIBP BP-Mean 74 Respiration from ECG 12 SpO2 100 I&O: 11/08/20 11/09/20 11/10/20 06:59 06:59 06:59 Intake Total 990 1359 Output Total 3850 2750 Balance -7250 -8151 Result Diagrams: 11/09/20 04:27 11/09/20 04:27 Hospitalist ROS - Review of Systems Constitutional: denies: fever, chills Respiratory: denies: cough, shortness of breath Cardiovascular: denies: chest pain, palpitations Gastrointestinal: denies: nausea, vomiting, abdominal pain - Medication Medications: Active Medications Generic Name Dose Route Start Last Admin Trade Name Freq PRN Reason Stop Dose Admin Acetaminophen 650 mg 11/05/20 11:38 11/07/20 21:57 Acetaminophen 325 Mg Tab PO 650 mg Q4H PRN Administration Headache/Fever/Mild Pain (1-3) Apixaban 5 mg 11/05/20 21:00 11/08/20 21:42 Apixaban 5 Mg Tab PO 5 mg BID RAFFY Administration Atorvastatin Calcium 40 mg 11/05/20 21:00 11/08/20 21:42 Atorvastatin Calcium 40 Mg Tab PO 40 mg HS RAFFY Administration Carvedilol 3.125 mg 11/07/20 09:00 11/08/20 21:42 Carvedilol 3.125 Mg Tab PO 3.125 mg BID RAFFY Administration Digoxin 0.25 mg 11/06/20 09:00 11/08/20 08:23 Digoxin 0.25 Mg Tab PO 0.25 mg DAILY RAFFY Administration Finasteride 5 mg 11/06/20 09:00 11/08/20 08:22 Finasteride 5 Mg Tab PO 5 mg DAILY RAFFY Administration Potassium Chloride 20 meq 11/06/20 08:00 11/08/20 08:22 Potassium Chloride 20 Meq Tab PO 20 meq QAM-WM RAFFY Administration Sacubitril/Valsartan 0.5 tab 11/07/20 09:00 11/08/20 21:42 Sacubitril 24mg/Valsartan 26mg Tab PO Not Given BID RAFFY Sodium Chloride 10 ml 11/06/20 21:00 11/08/20 21:42 Flush - Normal Saline 10 Ml Syringe IVF 10 ml Q12HR RAFFY Administration Spironolactone 25 mg 11/07/20 08:00 11/08/20 08:23 Spironolactone 25 Mg Tab PO 25 mg QAM-WM RAFFY Administration - Exam General Appearance: NAD, awake alert ENT: moist mucosa Heart: RRR, no murmur, no gallops, no rubs Respiratory: CTAB, no wheezes, no rales, no ronchi Gastrointestinal: soft, non-tender, non-distended, normal bowel sounds Extremities: no edema Psychiatric: normal affect, normal behavior Hosp A/P - Plan (1) Acute on chronic systolic (congestive) heart failure Code(s): I50.23 - ACUTE ON CHRONIC SYSTOLIC (CONGESTIVE) HEART FAILURE Status: Acute (2) Atrial fibrillation Code(s): I48.91 - UNSPECIFIED ATRIAL FIBRILLATION Status: Chronic Qualifiers: Atrial fibrillation type: paroxysmal Qualified Code(s): I48.0 - Paroxysmal atrial fibrillation (3) COPD (chronic obstructive pulmonary disease) Status: Chronic Qualifiers: COPD type: chronic bronchitis (4) Chronic anticoagulation Code(s): 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 Cardiology holding Entresto. - Plan * Acute on chronic systolic heart failure- over diuresed, Lasix d/c'd and Dr. Kern giving gentle fluids. * He has been started on Entresto at low dose- currently on hold, Spironolactone d/c'd * AFIB- his heart rate is stable-will continue Eliquis for anticoagulation, Dr. Kern increasing digoxin * HTN- blood pressure remains a bit low, though asymptomatic, will follow cardiology recommendations * GERD- stable
[2020-11-09] MEDS: Apixaban 5 MG TAB PO SCH ×2 (08:23→20:50)
[2020-11-09] MEDS: Potassium Chloride 20 MEQ TAB PO SCH (08:23)
[2020-11-09] MEDS: Digoxin 0.25 MG TAB PO SCH (08:23)
[2020-11-09] MEDS: Finasteride 5 MG TAB PO SCH (08:24)
[2020-11-09] MEDS: Spironolactone 25 MG TAB PO SCH (09:05)
[2020-11-09] MEDS: Carvedilol 3.125 MG TAB PO SCH ×2 (09:05→20:50)
[2020-11-09] MEDS ORDERED: Sodium Chloride 0.9% 1,000 ML IV SCH (09:30)
[2020-11-09] MEDS: Atorvastatin Calcium 40 MG TAB PO SCH (20:50)
[2020-11-10 05:55] LABS: Digoxin 0.94 ng/mL (0.8-2.0)
--- NOTE | 2020-11-10 07:27 | PDOC.HOSPP ---
- Subjective Encounter Date: 11/10/20 Encounter Time: 09:00 Subjective: Patient without complaints. Wants to go home. - Objective Vital Signs & Weight: Vital Signs (12 hours) Temp Pulse Resp BP BP Pulse Ox 11/10/20 06:59 98.4 F 80 16 99/62 97 11/10/20 05:11 99 11/10/20 05:05 97.9 F 80 16 93/64 99 11/10/20 01:20 96/60 11/09/20 20:02 97.6 F 80 18 88/58 L 100 Weight Admit Weight 170 lb 3.008 oz Weight 159 lb 12.8 oz Most Recent Monitor Data Heart Rate from ECG 85 NIBP 92/65 NIBP BP-Mean 74 Respiration from ECG 12 SpO2 100 I&O: 11/09/20 11/10/20 11/11/20 06:59 06:59 06:59 Intake Total 1359 2485 Output Total 2750 4075 Balance -1391 -8910 Result Diagrams: 11/09/20 04:27 11/09/20 04:27 Hospitalist ROS - Review of Systems Constitutional: denies: fever, chills Respiratory: denies: cough, shortness of breath Cardiovascular: denies: chest pain, palpitations Gastrointestinal: denies: nausea, vomiting, abdominal pain - Medication Medications: Active Medications Generic Name Dose Route Start Last Admin Trade Name Freq PRN Reason Stop Dose Admin Acetaminophen 650 mg 11/05/20 11:38 11/07/20 21:57 Acetaminophen 325 Mg Tab PO 650 mg Q4H PRN Administration Headache/Fever/Mild Pain (1-3) Apixaban 5 mg 11/05/20 21:00 11/09/20 20:50 Apixaban 5 Mg Tab PO 5 mg BID RAFFY Administration Atorvastatin Calcium 40 mg 11/05/20 21:00 11/09/20 20:50 Atorvastatin Calcium 40 Mg Tab PO 40 mg HS RAFFY Administration Carvedilol 3.125 mg 11/09/20 21:00 11/09/20 20:50 Carvedilol 3.125 Mg Tab PO Not Given BID RAFFY Digoxin 0.25 mg 11/06/20 09:00 11/09/20 08:23 Digoxin 0.25 Mg Tab PO 0.25 mg DAILY RAFFY Administration Finasteride 5 mg 11/06/20 09:00 11/09/20 08:24 Finasteride 5 Mg Tab PO 5 mg DAILY RAFFY Administration Sacubitril/Valsartan 0.5 tab 11/07/20 09:00 11/09/20 20:51 Sacubitril 24mg/Valsartan 26mg Tab PO Not Given BID RAFFY Sodium Chloride 10 ml 11/06/20 21:00 11/09/20 20:51 Flush - Normal Saline 10 Ml Syringe IVF Not Given Q12HR RAFFY - Exam General Appearance: NAD, awake alert ENT: moist mucosa Heart: RRR, no murmur, no gallops, no rubs Respiratory: CTAB, no wheezes, no rales, no ronchi Gastrointestinal: soft, non-tender, non-distended, normal bowel sounds Psychiatric: normal affect, normal behavior Hosp A/P - Plan (1) Acute on chronic systolic (congestive) heart failure Code(s): I50.23 - ACUTE ON CHRONIC SYSTOLIC (CONGESTIVE) HEART FAILURE Status: Acute (2) Atrial fibrillation Code(s): I48.91 - UNSPECIFIED ATRIAL FIBRILLATION Status: Chronic Qualifiers: Atrial fibrillation type: paroxysmal Qualified Code(s): I48.0 - Paroxysmal atrial fibrillation (3) COPD (chronic obstructive pulmonary disease) Status: Chronic Qualifiers: COPD type: chronic bronchitis (4) Chronic anticoagulation Code(s): 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 Cardiology holding Entresto. - Plan * Acute on chronic systolic heart failure- over diuresed, Lasix d/c'd and Dr. Kern gave gentle fluids. * Entresto and Spironolactone d/c'd due to persistent hypotension. * AFIB- his heart rate is stable-will continue Eliquis for anticoagulation, Dr. Kern increased digoxin * HTN- blood pressure remains a bit low, though asymptomatic, will follow cardiology recommendations * GERD- stable * D/C home when ok with cardiology
[2020-11-10] MEDS: Digoxin 0.25 MG TAB PO SCH (08:17)
[2020-11-10] MEDS: Finasteride 5 MG TAB PO SCH (08:17)
[2020-11-10] MEDS: Apixaban 5 MG TAB PO SCH ×2 (08:17→20:38)
[2020-11-10] MEDS: Carvedilol 3.125 MG TAB PO SCH ×2 (08:18→20:38)
[2020-11-10] MEDS ORDERED: Sodium Chloride 0.9% 1,000 ML IV SCH (09:45)
[2020-11-10] MEDS: Atorvastatin Calcium 40 MG TAB PO SCH (20:38)
--- NOTE | 2020-11-11 07:33 | PDOC.HOSPP ---
- Subjective Encounter Date: 11/11/20 Encounter Time: 12:20 Subjective: Patient denies complaints. Wants to go home. Has been refusing to get up with PT, but to me complains about having to be stuck in bed all day. - Objective Vital Signs & Weight: Vital Signs (12 hours) Temp Pulse Resp BP Pulse Ox 11/11/20 04:50 100 11/11/20 04:00 98.6 F 80 14 106/64 95 11/10/20 20:35 98.9 F 79 19 128/81 100 Weight Admit Weight 170 lb 3.008 oz Weight 153 lb 14.4 oz Most Recent Monitor Data Heart Rate from ECG 85 NIBP 92/65 NIBP BP-Mean 74 Respiration from ECG 12 SpO2 100 I&O: 11/10/20 11/11/20 11/12/20 06:59 06:59 06:59 Intake Total 2485 1340 Output Total 4075 1025 Balance -1590 315 Result Diagrams: 11/09/20 04:27 11/09/20 04:27 Hospitalist ROS - Review of Systems Constitutional: denies: fever, chills Respiratory: denies: cough, shortness of breath Cardiovascular: denies: chest pain, palpitations Gastrointestinal: denies: nausea, vomiting, abdominal pain - Medication Medications: Active Medications Generic Name Dose Route Start Last Admin Trade Name Freq PRN Reason Stop Dose Admin Acetaminophen 650 mg 11/05/20 11:38 11/07/20 21:57 Acetaminophen 325 Mg Tab PO 650 mg Q4H PRN Administration Headache/Fever/Mild Pain (1-3) Apixaban 5 mg 11/05/20 21:00 11/10/20 20:38 Apixaban 5 Mg Tab PO 5 mg BID RAFFY Administration Atorvastatin Calcium 40 mg 11/05/20 21:00 11/10/20 20:38 Atorvastatin Calcium 40 Mg Tab PO 40 mg HS RAFFY Administration Carvedilol 3.125 mg 11/09/20 21:00 11/10/20 20:38 Carvedilol 3.125 Mg Tab PO 3.125 mg BID RAFFY Administration Digoxin 0.25 mg 11/06/20 09:00 11/10/20 08:17 Digoxin 0.25 Mg Tab PO 0.25 mg DAILY RAFFY Administration Finasteride 5 mg 11/06/20 09:00 12/30/20 08:17 Finasteride 5 Mg Tab PO 5 mg DAILY RAFFY Administration Sodium Chloride 10 ml 11/06/20 21:00 11/10/20 20:41 Flush - Normal Saline 10 Ml Syringe IVF Not Given Q12HR RAFFY - Exam General Appearance: NAD, awake alert ENT: moist mucosa Heart: RRR, no murmur, no gallops, no rubs Respiratory: CTAB, no wheezes, no rales, no ronchi Gastrointestinal: soft, non-tender, non-distended, normal bowel sounds Extremities: no edema Psychiatric: normal affect, A&O x 3 Hosp A/P - Plan (1) Acute on chronic systolic (congestive) heart failure Code(s): I50.23 - ACUTE ON CHRONIC SYSTOLIC (CONGESTIVE) HEART FAILURE Status: Acute (2) Atrial fibrillation Code(s): I48.91 - UNSPECIFIED ATRIAL FIBRILLATION Status: Chronic Qualifiers: Atrial fibrillation type: paroxysmal Qualified Code(s): I48.0 - Paroxysmal atrial fibrillation (3) COPD (chronic obstructive pulmonary disease) Status: Chronic Qualifiers: COPD type: chronic bronchitis (4) Chronic anticoagulation Code(s): 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 - Plan * Acute on chronic systolic heart failure- over diuresed, Lasix d/c'd and Dr. Kern gave gentle fluids. * Entresto and Spironolactone d/c'd due to persistent hypotension. * AFIB- his heart rate is stable-will continue Eliquis for anticoagulation, Dr. Kern increased digoxin * HTN- blood pressure remains a bit low, though asymptomatic, will follow cardiology recommendations * GERD- stable * Patient refusing being cleaned, not getting up with PT though was able to stand at bedside easily * Spoke with Dr. Kern and he is ok with the patient going home. Recommends that patient followup in the clinic but that patient never does. * Will see if patient will cooperate with PT and try to ambulate before leaving.
[2020-11-11] MEDS: Carvedilol 3.125 MG TAB PO SCH (09:24)
[2020-11-11] MEDS: Apixaban 5 MG TAB PO SCH (09:24)
[2020-11-11] MEDS: Digoxin 0.25 MG TAB PO SCH (09:24)
[2020-11-11] MEDS: Finasteride 5 MG TAB PO SCH (09:24)
[2020-11-11 15:03] VITALS: BMI 20.8
[2020-11-11 16:28] VITALS: TEMP 98.4
[2020-11-11 16:51] VITALS: BP 98/63
--- NOTE | 2020-11-11 20:38 | DIS ---
DATE OF ADMISSION: 11/05/2020 DATE OF DISCHARGE: 11/11/2020 PRIMARY CARE PHYSICIAN: Alexus Molina PA-C REASON FOR ADMISSION: Congestive heart failure exacerbation. DIAGNOSES AT DISCHARGE: 1. [id number] systolic congestive heart failure. 2. Atrial fibrillation with rapid ventricular rate. 3. Hypotension. 4. Chronic obstructive pulmonary disease. 5. Chronic anticoagulation. 6. Gastroesophageal reflux disease. 7. Hypertension. PROCEDURES: Echocardiogram showing ejection fraction of 10% to 15%. CONSULTATIONS: Cardiology, Dr. Gonzalez. SUMMARY OF HOSPITAL COURSE: This is a 75-year-old white male with a history of severe congestive heart failure and chronic atrial fibrillation, on Eliquis. He came in short of breath, was found to be in exacerbation. Cardiology was consulted. The patient was diuresed. He was also noted to be in rapid ventricular rate for his atrial fibrillation, so he was put on digoxin. Also attempted to increase his Coreg and start him on Entresto and spironolactone. The patient initially did improve, however, his blood pressures dropped with the new medications and he stayed hypotensive. He eventually had to have all of these discontinued and his carvedilol had to be decreased down instead of up. He also did stop his lisinopril and we were unable to put him on Entresto. After the first day with good control of his heart rate, the patient's shortness of breath resolved. He was not very cooperative with PT, but eventually did get up and demonstrates he was able to ambulate and was demanding to go home. The patient was eventually discharged home with his and with home health. DISCHARGE MANAGEMENT: Discharged home with Home Health. ACTIVITY: As tolerated. DIET: Healthy heart, low-sodium, fluid-restricted diet. THERAPY: Physical therapy at home. EQUIPMENT/SUPPLIES: Rolling walker. FOLLOWUP: With primary care provider in [address] Kern's office in 2 to 3 weeks. DISCHARGE MEDICATIONS: 1. Carvedilol 3.125 mg twice a day, 60 tablets dispensed. 2. Eliquis 5 mg twice a day. 3. Atorvastatin 40 mg at night. 4. Digoxin 250 mcg daily. 5. Finasteride 5 mg daily. 6. Furosemide 40 mg daily. 7. The patient is to stop his lisinopril. TIME SPENT: Arranging the details of this discharge took 35 minutes. Job ID: [id number]
--- NOTE | 2020-11-12 21:54 | PQF ---
CLINICAL DOCUMENTATION CLARIFICATION FORM: Dear : Darrell Anna Date / Time: 11/12/20 3689 Please exercise your independent, professional judgment in responding to the clarification form. Clinical indicators are provided on the bottom of this form for your review Please check appropriate box(es): [ ] Type 1 RI (NSTEMI) [ ] Type 2 RI (T2MI) secondary to heart failure [ ] Demand Ischemia without RI [ ] Other diagnosis [ X ] Unable to determine In addition, please specify: Present on Admission (POA): [ ] Yes [ ] No [ ] Unable to determine Physician Signature: Date/Time: For continuity of documentation, please document condition throughout progress notes and discharge summary. Thank You. To be completed by CDI/Coding staff for physician review: Present Clinical Indicators - Signs / Symptoms / Labs Results and Location in Medical Record [x] CK-MB 2.1, BNP 1801.9, Troponn I 0.048; 0.040 Laboratory 11/05 [x] BP 131/70, pulse 110, Resp 32, Temp 98.0 Vital signs 11/05 [x] EKG: Afib with RVR, Multifocal premature ventricular complexes, ST depression, Areas affected, lateral leads, T waves, inverted ED notes p10 09/05 [x] Echocardiogram: EF 10-15% Cardiac procedure Dr Gonzalez 11/06 [x] Elevated troponin level appears to be due to demand ischemia given his CHF and atrial Fibrillation H&P p2 11/05 Dr Russ Present Risk Factors Results and Location in Medical Record [x] 75 year-old male H&P p1 11/05 Dr Russ [x] Hx of Cardiomyopathy s/p AICD H&P p1 11/05 Dr Russ [x] Afib H&P p2 11/05 Dr Russ [x] CHF exacerbation H&P p2 11/05 Dr Russ Present Treatments Results and Location in Medical Record [x] IV Cardizem 25 mg JAN 21 [x] Digoxin 0.25 mg JAN 21 [x] Coreg 3.125 mg JAN 21 [x] Cardiology consult Dr Gonzalez 11/05 CDS/Medical Information Specialist Signature: Tea Hooker Phone #: ext [phone] Date/Time: 11/12/20 215 This is a permanent part of the Medical Record [facility]
== END 2020-11-11 18:26 | disposition home health service (06) | DRG 291 ==
LOC: ERS 10:05 → IMCU/EMU 11:00 → 2NO 11-06 20:17
PROVIDERS: ADMIT Internal Medicine; ATTEND Emergency Medicine
PROC: 0T9B70Z Drainage of Bladder with Drainage Device, Via Natural or Artificial Opening (ICD-10-PCS; principal; 2020-11-05)
DX: I11.0 Hypertensive heart disease with heart failure (principal); J96.21 Acute and chronic respiratory failure with hypoxia; I24.8 Other forms of acute ischemic heart disease; I48.21 Permanent atrial fibrillation; I47.2 Ventricular tachycardia; Z20.828 Contact with and (suspected) exposure to other viral communicable diseases; I50.23 Acute on chronic systolic (congestive) heart failure; I42.9 Cardiomyopathy, unspecified; J44.9 Chronic obstructive pulmonary disease, unspecified; G89.29 Other chronic pain; M54.9 Dorsalgia, unspecified; F17.210 Nicotine dependence, cigarettes, uncomplicated; D64.9 Anemia, unspecified; K21.00 Gastro-esophageal reflux disease with esophagitis, without bleeding; I95.9 Hypotension, unspecified; Z28.21 Immunization not carried out because of patient refusal; Z79.01 Long term (current) use of anticoagulants; Z95.810 Presence of automatic (implantable) cardiac defibrillator; Z86.73 Personal history of transient ischemic attack (TIA), and cerebral infarction without residual deficits; Z79.899 Other long term (current) drug therapy
CPT/HCPCS: 0241U; 36415; 36600; 71045; 80048; 80053; 80061; 80162; 82553; 82805; 83605; 83735; 83880; 84484; 85025; 85610; 85730; 87040; 93005; 93306; 94640; 94760; 96365; 96366; 96375; J1940

== ENCOUNTER 2021-01-06 00:43 | Emergency (ER) | payer MEDICARE, BC ==
[2021-01-06 01:50] LABS: #Eosinphils 0.3 thou/uL (0.0-0.7); #Lymphocytes 1.7 thou/uL (1.20-3.40); #Monocytes 0.5 thou/uL (0.11-0.59); %Basophils 0.6 % (0.0-1.0); %Eosinophils 5.1 % (0.0-10.0); %Lymphocytes 25.8 % (21.0-51.0); %Monocytes 7.6 % (0.0-10.0); Hemoglobin 11.5 g/dL (14.0-18.0); Mean Corpuscular HGB CONC 33.8 g/dL (32.0-36.0); Mean Corpuscular Hemoglobin 32.2 pg (27.0-31.0); Mean Corpuscular Volume 95.1 fL (78.0-98.0); Mean Platelet Volume 11.1 fL (7.4-10.4); Platelet Count 93 thou/uL (130-400); RBC Distribution Width 12.6 % (11.5-14.5); Red Blood Cell (RBC) Count 3.58 mill/uL (4.70-6.10); White Blood Cell (WBC) Count 6.5 thou/uL (4.8-10.8)
[2021-01-06 01:59] LABS: ALT (SGPT) 7 U/L (8-55); AST (SGOT) 13 U/L (5-34); Albumin 3.5 g/dL (3.4-4.8); Alkaline Phosphatase 89 U/L (40-110); Anion Gap 13 mmol/L (10-20); BUN (Urea Nitrogen) 17 mg/dL (8.4-25.7); Bilirubin, Total 0.6 mg/dL (0.2-1.2); Calc. Creatinine Clearance 0 mL/min (70-130); Calcium 8.2 mg/dL (7.8-10.44); Carbon Dioxide 21 mmol/L (23-31); Chloride 108 mmol/L (98-107); Globulin 2.8 g/dL (2.4-3.5); Glucose 134 mg/dL (83-110); Potassium 3.7 mmol/L (3.5-5.1); Protein, Total 6.3 g/dL (5.8-8.1); Sodium 138 mmol/L (136-145)
[2021-01-06 02:21] LABS: CKMB 1.2 ng/mL (0-6.6)
--- NOTE | 2021-01-06 07:57 | RAD ---
EXAM: XR Chest 1 View Portable PROVIDED CLINICAL HISTORY: Shortness of breath COMPARISON: 11/05/2020 FINDINGS: Cardiac and mediastinal silhouette is unchanged in appearance. Left subclavian cardiac pacing device is redemonstrated in similar position. No focal consolidation, pleural fluid or pneumothorax apparent. IMPRESSION: No evidence for an acute cardiopulmonary process.
== END 2021-01-06 02:56 | disposition home or self-care (01) ==
LOC: ERS 00:43
DX: R06.00 Dyspnea, unspecified (principal); J44.9 Chronic obstructive pulmonary disease, unspecified; I48.91 Unspecified atrial fibrillation; I50.9 Heart failure, unspecified; Z86.73 Personal history of transient ischemic attack (TIA), and cerebral infarction without residual deficits; F17.210 Nicotine dependence, cigarettes, uncomplicated; Z79.01 Long term (current) use of anticoagulants; Z79.899 Other long term (current) drug therapy
CPT/HCPCS: 36415; 71045; 80053; 82553; 83880; 84484; 85025; 93005; 93010

== ENCOUNTER 2021-02-02 19:23 | Emergency (ER) | payer MEDICARE, BC ==
[2021-02-02 20:20] LABS: Platelet Count 98 thou/uL (130-400)
[2021-02-02 20:21] LABS: #Basophils 0.1 thou/uL (0.0-0.2); #Eosinphils 0.5 thou/uL (0.0-0.7); #Lymphocytes 2.5 thou/uL (1.20-3.40); #Monocytes 0.5 thou/uL (0.11-0.59); #Neutrophils 4.4 thou/uL (1.40-6.50); %Basophils 0.7 % (0.0-1.0); %Eosinophils 6.3 % (0.0-10.0); %Lymphocytes 31.5 % (21.0-51.0); %Monocytes 5.7 % (0.0-10.0); %Neutrophils 55.8 % (42.0-75.0); Hemoglobin 11.9 g/dL (14.0-18.0); Mean Corpuscular HGB CONC 33.3 g/dL (32.0-36.0); Mean Corpuscular Hemoglobin 31.7 pg (27.0-31.0); Mean Corpuscular Volume 95.3 fL (78.0-98.0); Mean Platelet Volume 11.1 fL (7.4-10.4); RBC Distribution Width 12.5 % (11.5-14.5); Red Blood Cell (RBC) Count 3.77 mill/uL (4.70-6.10); White Blood Cell (WBC) Count 7.9 thou/uL (4.8-10.8)
[2021-02-02 20:28] LABS: INR-International Normal Ratio 1.1; PTT 33.5 sec (22.9-36.1); Prothrombin Time 14.9 sec (12.0-14.7)
[2021-02-02 20:39] LABS: ALT (SGPT) 7 U/L (8-55); AST (SGOT) 15 U/L (5-34); Albumin 3.9 g/dL (3.4-4.8); Alkaline Phosphatase 96 U/L (40-110); Anion Gap 13 mmol/L (10-20); BUN (Urea Nitrogen) 16 mg/dL (8.4-25.7); Bilirubin, Total 0.6 mg/dL (0.2-1.2); CK (CPK) 49 U/L (30-200); Calc. Creatinine Clearance 0 mL/min (70-130); Calcium 8.4 mg/dL (7.8-10.44); Carbon Dioxide 24 mmol/L (23-31); Chloride 106 mmol/L (98-107); Globulin 2.7 g/dL (2.4-3.5); Glucose 110 mg/dL (83-110); Potassium 4.4 mmol/L (3.5-5.1); Protein, Total 6.6 g/dL (5.8-8.1); Sodium 139 mmol/L (136-145)
[2021-02-02 21:02] LABS: CKMB 1.1 ng/mL (0-6.6)
[2021-02-02 21:15] LABS: Bacteria/HPF 4+ HPF (None Seen); Bilirubin Negative (Negative); Blood, Urine Trace (Negative); Clarity Turbid (Clear); Glucose, Urine (Dipstick) Normal (Negative); Ketone, Urine Negative (Negative); Leukocyte 500 Leu/uL (Negative); Nitrite 2+ (Negative); Protein, Urine (Dipstick) 10 mg/dL (Neg-Trace); Specific Gravity, Urine 1.012 (1.002-1.036); Squamous Epithelial 0-3 HPF (0-3); Urobilinogen Normal mg/dL (Less than 2); WBC/HPF Greater than 50 HPF (0-3); pH, Urine 6.5 (5.0-9.0)
[2021-02-02 21:20] LABS: Digoxin 0.27 ng/mL (0.8-2.0)
[2021-02-02] MEDS ORDERED: cefTRIAXone\\ROCEPHIN 1 GM VIAL ONE (21:51)
== END 2021-02-03 00:10 | disposition home or self-care (01) ==
LOC: ERS 19:23
DX: N39.0 Urinary tract infection, site not specified (principal); F17.210 Nicotine dependence, cigarettes, uncomplicated
CPT/HCPCS: 36415; 71045; 80053; 80162; 81003; 81015; 82550; 82553; 84484; 85025; 85610; 85730; 93005; 96365; J0696

== ENCOUNTER 2021-02-05 13:33 | Inpatient (IN) | payer MEDICARE, BC ==
[2021-02-05 14:10] LABS: #Eosinphils 0.3 thou/uL (0.0-0.7); #Lymphocytes 1.4 thou/uL (1.20-3.40); #Monocytes 0.4 thou/uL (0.11-0.59); #Neutrophils 6.6 thou/uL (1.40-6.50); %Basophils 0.3 % (0.0-1.0); %Eosinophils 3.5 % (0.0-10.0); %Lymphocytes 15.9 % (21.0-51.0); %Monocytes 4.9 % (0.0-10.0); %Neutrophils 75.4 % (42.0-75.0); Hemoglobin 11.8 g/dL (14.0-18.0); Mean Corpuscular HGB CONC 33.1 g/dL (32.0-36.0); Mean Corpuscular Hemoglobin 31.3 pg (27.0-31.0); Mean Corpuscular Volume 94.5 fL (78.0-98.0); Mean Platelet Volume 11.5 fL (7.4-10.4); Platelet Count 91 thou/uL (130-400); RBC Distribution Width 12.4 % (11.5-14.5); Red Blood Cell (RBC) Count 3.77 mill/uL (4.70-6.10); White Blood Cell (WBC) Count 8.8 thou/uL (4.8-10.8)
[2021-02-05 14:23] LABS: ALT (SGPT) 12 U/L (8-55); AST (SGOT) 18 U/L (5-34); Albumin 4.1 g/dL (3.4-4.8); Alkaline Phosphatase 107 U/L (40-110); Anion Gap 15 mmol/L (10-20); BUN (Urea Nitrogen) 15 mg/dL (8.4-25.7); Bilirubin, Total 1.1 mg/dL (0.2-1.2); Calc. Creatinine Clearance 0 mL/min (70-130); Calcium 8.6 mg/dL (7.8-10.44); Carbon Dioxide 23 mmol/L (23-31); Chloride 106 mmol/L (98-107); Globulin 2.9 g/dL (2.4-3.5); Glucose 103 mg/dL (83-110); Potassium 4.2 mmol/L (3.5-5.1); Sodium 140 mmol/L (136-145)
[2021-02-05 14:45] LABS: CKMB 1.4 ng/mL (0-6.6)
[2021-02-05] MEDS ORDERED: Aspirin Chewable 81 MG TAB ONE (14:54)
[2021-02-05] MEDS ORDERED: methylPREDNISolone Sod Succ/PF 125 MG/2 ML VIAL ONE (14:54)
[2021-02-05] MEDS ORDERED: Ondansetron PF 4 MG/2 ML Vial IVP PRN (17:04)
[2021-02-05] MEDS ORDERED: Bisacodyl 10 MG SUPP PR PRN (17:04)
[2021-02-05] MEDS ORDERED: Ondansetron ODT 4 MG TAB PO PRN (17:04)
[2021-02-05] MEDS ORDERED: HYDROcodone/Acetaminophen 5/325 mg Tablet PO PRN (17:04)
[2021-02-05] MEDS ORDERED: Zolpidem Tartrate 5 MG TAB PO PRN (17:04)
[2021-02-05] MEDS ORDERED: Calcium Carbonate 500 MG ChewTAB PO PRN (17:04)
[2021-02-05] MEDS ORDERED: Guaifenesin DM 100-10/5 ML UDCUP PO PRN (17:04)
[2021-02-05] MEDS ORDERED: Acetaminophen 325 MG TAB PO PRN (17:04)
[2021-02-05] MEDS ORDERED: Loperamide HCl 2 MG CAP PO PRN (17:04)
[2021-02-05] MEDS ORDERED: Senokot S 8.6-50 MG TAB PO PRN (17:04)
[2021-02-05] MEDS ORDERED: Furosemide 40 MG/4 ML VIAL ONE (17:43)
[2021-02-05 18:14] LABS: CKMB 1.5 ng/mL (0-6.6)
[2021-02-05 18:25] VITALS: BMI 27.5
[2021-02-05] MEDS: Famotidine 20 MG TAB PO SCH (20:55)
[2021-02-05] MEDS: Atorvastatin Calcium 40 MG TAB PO SCH (20:55)
[2021-02-05] MEDS: Carvedilol 3.125 MG TAB PO SCH (20:55)
[2021-02-05] MEDS: Apixaban 5 MG TAB PO SCH (20:55)
[2021-02-06 01:26] LABS: SARS-CoV-2 PCR by NAA Not Detected (NotDetected)
[2021-02-06 04:47] LABS: Digoxin Less than 0.15 ng/mL (0.8-2.0)
[2021-02-06 04:48] LABS: Anion Gap 13 mmol/L (10-20); BUN (Urea Nitrogen) 20 mg/dL (8.4-25.7); Calc. Creatinine Clearance 65 mL/min (70-130); Calcium 8.1 mg/dL (7.8-10.44); Carbon Dioxide 22 mmol/L (23-31); Chloride 106 mmol/L (98-107); Cholesterol 113 mg/dl (< 200 Desired); Glucose 248 mg/dL (83-110); HDL Cholesterol 38 mg/dL (>60 Neg Risk); LDL Cholesterol, Calculated 67 mg/dL; Potassium 4.1 mmol/L (3.5-5.1); Sodium 137 mmol/L (136-145); Triglycerides 41 mg/dL (Less than 150)
[2021-02-06 05:26] LABS: #Lymphocytes 0.9 thou/uL (1.20-3.40); #Monocytes 0.1 thou/uL (0.11-0.59); %Basophils 0.2 % (0.0-1.0); %Eosinophils 0.1 % (0.0-10.0); %Lymphocytes 14.3 % (21.0-51.0); %Monocytes 2.1 % (0.0-10.0); %Neutrophils 83.3 % (42.0-75.0); Hemoglobin 11.1 g/dL (14.0-18.0); Mean Corpuscular HGB CONC 33.6 g/dL (32.0-36.0); Mean Corpuscular Hemoglobin 31.5 pg (27.0-31.0); Mean Corpuscular Volume 93.7 fL (78.0-98.0); Mean Platelet Volume 11.7 fL (7.4-10.4); Platelet Count 85 thou/uL (130-400); Platelet Morphology Comment Appears Decreased; RBC Distribution Width 12.5 % (11.5-14.5); Red Blood Cell (RBC) Count 3.52 mill/uL (4.70-6.10); White Blood Cell (WBC) Count 6.1 thou/uL (4.8-10.8)
[2021-02-06] MEDS: Furosemide 20 MG/2 ML VIAL SLOW IVP SCH ×2 (08:09→14:47)
[2021-02-06] MEDS: Mometasone 200 MCG/Formoterol 5 MCG 120 PUFF INHALER INH SCH ×2 (08:22→19:17)
[2021-02-06] MEDS: Apixaban 5 MG TAB PO SCH ×2 (09:05→21:32)
[2021-02-06] MEDS: Aspirin Chewable 81 MG TAB PO SCH (09:05)
[2021-02-06] MEDS: Carvedilol 3.125 MG TAB PO SCH ×2 (09:05→21:32)
[2021-02-06] MEDS: Digoxin 0.25 MG TAB PO SCH (09:06)
[2021-02-06] MEDS: Famotidine 20 MG TAB PO SCH ×2 (09:06→21:32)
[2021-02-06] MEDS: Finasteride 5 MG TAB PO SCH (09:06)
[2021-02-06] MEDS: Atorvastatin Calcium 40 MG TAB PO SCH (21:32)
[2021-02-07] MEDS: Mometasone 200 MCG/Formoterol 5 MCG 120 PUFF INHALER INH SCH ×2 (07:27→19:12)
[2021-02-07] MEDS: Finasteride 5 MG TAB PO SCH (09:42)
[2021-02-07] MEDS: Famotidine 20 MG TAB PO SCH ×2 (09:42→21:19)
[2021-02-07] MEDS: Apixaban 5 MG TAB PO SCH ×2 (09:42→21:19)
[2021-02-07] MEDS: Digoxin 0.25 MG TAB PO SCH (09:42)
[2021-02-07] MEDS: Aspirin Chewable 81 MG TAB PO SCH (09:42)
[2021-02-07] MEDS: Carvedilol 3.125 MG TAB PO SCH ×2 (12:53→21:20)
[2021-02-07] MEDS: Furosemide 20 MG/2 ML VIAL SLOW IVP SCH ×2 (12:53→16:07)
[2021-02-07] MEDS: Atorvastatin Calcium 40 MG TAB PO SCH (21:19)
[2021-02-08] MEDS: Furosemide 20 MG/2 ML VIAL SLOW IVP SCH ×2 (05:58→14:34)
[2021-02-08] MEDS: Mometasone 200 MCG/Formoterol 5 MCG 120 PUFF INHALER INH SCH (08:09)
[2021-02-08] MEDS: Apixaban 5 MG TAB PO SCH (10:29)
[2021-02-08] MEDS: Digoxin 0.25 MG TAB PO SCH (10:29)
[2021-02-08] MEDS: Finasteride 5 MG TAB PO SCH (10:30)
[2021-02-08] MEDS: Aspirin Chewable 81 MG TAB PO SCH (10:30)
[2021-02-08] MEDS: Famotidine 20 MG TAB PO SCH (10:30)
[2021-02-08 12:18] VITALS: TEMP 97.8
[2021-02-08 13:41] VITALS: BP 119/79
== END 2021-02-08 14:25 | disposition home health service (06) | DRG 190 ==
LOC: ERS 13:33 → 2NO 16:47
PROVIDERS: ADMIT Internal Medicine; ATTEND Hospitalist
DX: J44.1 Chronic obstructive pulmonary disease with (acute) exacerbation (principal); I50.23 Acute on chronic systolic (congestive) heart failure; I47.2 Ventricular tachycardia; N39.0 Urinary tract infection, site not specified; I11.0 Hypertensive heart disease with heart failure; D69.6 Thrombocytopenia, unspecified; E78.5 Hyperlipidemia, unspecified; K21.9 Gastro-esophageal reflux disease without esophagitis; I48.0 Paroxysmal atrial fibrillation; I25.5 Ischemic cardiomyopathy; N40.0 Benign prostatic hyperplasia without lower urinary tract symptoms; Z20.822 Contact with and (suspected) exposure to COVID-19; F17.210 Nicotine dependence, cigarettes, uncomplicated; Z79.01 Long term (current) use of anticoagulants; Z71.6 Tobacco abuse counseling
CPT/HCPCS: 36415; 71045; 80048; 80053; 80061; 80162; 81003; 81015; 82550; 82553; 83735; 83880; 84443; 84484; 84550; 85025; 85610; 85730; 87635; 93005; 93798; 94640; 94760; 96365; 96374; 96375; J0696; J1940; J2930; J7620; U0003; U0005

== ENCOUNTER 2021-02-23 22:18 | Emergency (ER) | payer MEDICARE, BC ==
[2021-02-24 00:10] LABS: ALT (SGPT) 8 U/L (8-55); AST (SGOT) 12 U/L (5-34); Albumin 3.9 g/dL (3.4-4.8); Alkaline Phosphatase 97 U/L (40-110); Anion Gap 12 mmol/L (10-20); BUN (Urea Nitrogen) 14 mg/dL (8.4-25.7); Calc. Creatinine Clearance 0 mL/min (70-130); Calcium 8.8 mg/dL (7.8-10.44); Carbon Dioxide 27 mmol/L (23-31); Chloride 104 mmol/L (98-107); Globulin 3.1 g/dL (2.4-3.5); Glucose 160 mg/dL (83-110); Potassium 3.8 mmol/L (3.5-5.1); Sodium 139 mmol/L (136-145)
[2021-02-24 00:17] LABS: #Basophils 0.1 thou/uL (0.0-0.2); #Eosinphils 0.3 thou/uL (0.0-0.7); #Lymphocytes 1.8 thou/uL (1.20-3.40); #Monocytes 0.6 thou/uL (0.11-0.59); %Basophils 0.7 % (0.0-1.0); %Eosinophils 3.2 % (0.0-10.0); %Lymphocytes 20.7 % (21.0-51.0); %Monocytes 6.5 % (0.0-10.0); %Neutrophils 68.9 % (42.0-75.0); Hemoglobin 12.3 g/dL (14.0-18.0); Mean Corpuscular HGB CONC 32.4 g/dL (32.0-36.0); Mean Corpuscular Hemoglobin 30.8 pg (27.0-31.0); Mean Corpuscular Volume 94.8 fL (78.0-98.0); Mean Platelet Volume 11.6 fL (7.4-10.4); Platelet Count 105 thou/uL (130-400); Platelet Morphology Comment Appears Decreased; RBC Distribution Width 12.6 % (11.5-14.5); Red Blood Cell (RBC) Count 3.99 mill/uL (4.70-6.10); White Blood Cell (WBC) Count 8.7 thou/uL (4.8-10.8)
[2021-02-24 00:33] LABS: CKMB 1.4 ng/mL (0-6.6)
== END 2021-02-24 00:49 | disposition home or self-care (01) ==
LOC: ERS 22:18
DX: R06.00 Dyspnea, unspecified (principal); I48.91 Unspecified atrial fibrillation; J44.9 Chronic obstructive pulmonary disease, unspecified; I50.9 Heart failure, unspecified; Z86.73 Personal history of transient ischemic attack (TIA), and cerebral infarction without residual deficits; Z79.01 Long term (current) use of anticoagulants; Z79.899 Other long term (current) drug therapy
CPT/HCPCS: 71045; 80053; 82553; 83880; 84484; 85025; 93005

== ENCOUNTER 2021-03-06 23:06 | Emergency (ER) | payer MEDICARE, BC ==
[2021-03-06 23:50] LABS: ALT (SGPT) 17 U/L (8-55); AST (SGOT) 31 U/L (5-34); Albumin 3.7 g/dL (3.4-4.8); Alkaline Phosphatase 100 U/L (40-110); Anion Gap 15 mmol/L (10-20); BUN (Urea Nitrogen) 16 mg/dL (8.4-25.7); Bilirubin, Total 0.7 mg/dL (0.2-1.2); Calc. Creatinine Clearance 0 mL/min (70-130); Calcium 8.4 mg/dL (7.8-10.44); Carbon Dioxide 21 mmol/L (23-31); Chloride 108 mmol/L (98-107); Globulin 2.6 g/dL (2.4-3.5); Glucose 120 mg/dL (83-110); Potassium 3.8 mmol/L (3.5-5.1); Protein, Total 6.3 g/dL (5.8-8.1); Sodium 140 mmol/L (136-145)
[2021-03-06 23:51] LABS: Hemoglobin 11.9 g/dL (14.0-18.0); Mean Corpuscular HGB CONC 33.8 g/dL (32.0-36.0); Mean Corpuscular Hemoglobin 32.3 pg (27.0-31.0); Mean Corpuscular Volume 95.5 fL (78.0-98.0); RBC Distribution Width 12.9 % (11.5-14.5)
[2021-03-06 23:56] LABS: #Eosinphils 0.3 thou/uL (0.0-0.7); #Lymphocytes 3.6 thou/uL (1.20-3.40); #Monocytes 0.5 thou/uL (0.11-0.59); #Neutrophils 4.7 thou/uL (1.40-6.50); %Basophils 0.5 % (0.0-1.0); %Eosinophils 3.6 % (0.0-10.0); %Lymphocytes 39.2 % (21.0-51.0); %Monocytes 5.7 % (0.0-10.0); %Neutrophils 50.9 % (42.0-75.0); Platelet Count 115 thou/uL (130-400); Platelet Morphology Comment Appears Decreased; White Blood Cell (WBC) Count 9.2 thou/uL (4.8-10.8)
[2021-03-07 00:12] LABS: CKMB 1.5 ng/mL (0-6.6)
[2021-03-07] MEDS ORDERED: predniSONE 20 MG TAB ONE (00:36)
== END 2021-03-07 01:29 | disposition home or self-care (01) ==
LOC: ERS 23:06
DX: J44.1 Chronic obstructive pulmonary disease with (acute) exacerbation (principal); F17.210 Nicotine dependence, cigarettes, uncomplicated; I50.9 Heart failure, unspecified
CPT/HCPCS: 36415; 71045; 80053; 82553; 83880; 84484; 85025; 93005; J7512

== ENCOUNTER 2021-03-08 23:36 | Inpatient (IN) | payer MEDICARE, BC ==
[2021-03-09 00:30] LABS: #Basophils 0.1 thou/uL (0.0-0.2); #Eosinphils 0.3 thou/uL (0.0-0.7); #Monocytes 0.6 thou/uL (0.11-0.59); #Neutrophils 6.1 thou/uL (1.40-6.50); %Basophils 0.5 % (0.0-1.0); %Eosinophils 3.1 % (0.0-10.0); %Lymphocytes 30.2 % (21.0-51.0); %Neutrophils 60.2 % (42.0-75.0); Hemoglobin 11.9 g/dL (14.0-18.0); Mean Corpuscular HGB CONC 32.4 g/dL (32.0-36.0); Mean Corpuscular Hemoglobin 31.2 pg (27.0-31.0); Mean Corpuscular Volume 96.2 fL (78.0-98.0); Mean Platelet Volume 11.4 fL (7.4-10.4); Platelet Count 104 thou/uL (130-400); RBC Distribution Width 12.8 % (11.5-14.5); Red Blood Cell (RBC) Count 3.81 mill/uL (4.70-6.10); White Blood Cell (WBC) Count 10.1 thou/uL (4.8-10.8)
[2021-03-09 00:44] LABS: ALT (SGPT) 15 U/L (8-55); AST (SGOT) 16 U/L (5-34); Albumin 3.8 g/dL (3.4-4.8); Alkaline Phosphatase 90 U/L (40-110); Anion Gap 13 mmol/L (10-20); BUN (Urea Nitrogen) 18 mg/dL (8.4-25.7); Bilirubin, Total 0.5 mg/dL (0.2-1.2); Calc. Creatinine Clearance 0 mL/min (70-130); Calcium 8.6 mg/dL (7.8-10.44); Carbon Dioxide 25 mmol/L (23-31); Chloride 107 mmol/L (98-107); Globulin 2.8 g/dL (2.4-3.5); Glucose 117 mg/dL (83-110); Potassium 4.3 mmol/L (3.5-5.1); Protein, Total 6.6 g/dL (5.8-8.1); Sodium 141 mmol/L (136-145)
[2021-03-09 03:37] LABS: Troponin I 0.051 ng/mL (< 0.028)
[2021-03-09 06:42] VITALS: BMI 23.7
[2021-03-09] MEDS ORDERED: Acetaminophen 325 MG TAB PO PRN (09:41)
[2021-03-09] MEDS ORDERED: Furosemide 20 MG TAB PO SCH ×2 (10:21→10:30)
[2021-03-09] MEDS ORDERED: Finasteride 5 MG TAB PO SCH ×2 (10:21→10:30)
[2021-03-09] MEDS ORDERED: Digoxin 0.25 MG TAB PO SCH (10:21)
[2021-03-09] MEDS ORDERED: Apixaban 5 MG TAB PO SCH ×2 (10:22→10:30)
[2021-03-09] MEDS: methylPREDNISolone Sod Succ 40 MG VIAL IVP SCH ×2 (10:22→18:00)
[2021-03-09 10:25] LABS: SARS-CoV-2 PCR by NAA Not Detected (NotDetected)
[2021-03-09] MEDS ORDERED: Digoxin 0.125 MG TAB PO SCH (10:30)
[2021-03-09 12:01] LABS: Troponin I 0.046 ng/mL (< 0.028)
[2021-03-09 15:38] LABS: Bacteria/HPF 4+ HPF (None Seen); Bilirubin Negative (Negative); Blood, Urine Negative (Negative); Clarity Clear (Clear); Glucose, Urine (Dipstick) Normal (Negative); Ketone, Urine Negative (Negative); Leukocyte 500 Leu/uL (Negative); Nitrite 1+ (Negative); Protein, Urine (Dipstick) Negative (Neg-Trace); RBC/HPF 0-3 HPF (0-3); Specific Gravity, Urine 1.007 (1.002-1.036); Squamous Epithelial 0-3 HPF (0-3); Urobilinogen Normal mg/dL (Less than 2); WBC/HPF Greater than 50 HPF (0-3)
[2021-03-09] MEDS ORDERED: Atorvastatin Calcium 40 MG TAB PO SCH (21:00)
[2021-03-09] MEDS: Apixaban 5 MG TAB PO SCH (22:03)
[2021-03-10] MEDS: methylPREDNISolone Sod Succ 40 MG VIAL IVP SCH ×3 (04:03→21:39)
[2021-03-10] MEDS: Digoxin 0.125 MG TAB PO SCH (09:35)
[2021-03-10] MEDS: Apixaban 5 MG TAB PO SCH ×2 (09:35→21:39)
[2021-03-10] MEDS: Furosemide 20 MG TAB PO SCH (09:36)
[2021-03-10] MEDS: Finasteride 5 MG TAB PO SCH (09:36)
[2021-03-10] MEDS ORDERED: Digoxin 0.5 MG/2 ML AMP SLOW IVP SCH (14:45)
[2021-03-10] MEDS ORDERED: Atorvastatin Calcium 40 MG TAB PO SCH (21:00)
[2021-03-10 22:08] LABS: Anion Gap 13 mmol/L (10-20); BUN (Urea Nitrogen) 16 mg/dL (8.4-25.7); Calc. Creatinine Clearance 73 mL/min (70-130); Calcium 8.8 mg/dL (7.8-10.44); Carbon Dioxide 25 mmol/L (23-31); Chloride 105 mmol/L (98-107); Glucose 160 mg/dL (83-110); Magnesium 2.2 mg/dL (1.6-2.6); Sodium 139 mmol/L (136-145)
[2021-03-11 02:05] LABS: Troponin I 0.061 ng/mL (< 0.028)
[2021-03-11] MEDS: methylPREDNISolone Sod Succ 40 MG VIAL IVP SCH ×2 (05:05→10:23)
[2021-03-11 05:49] LABS: Cardiac Risk 2.6 (Less than 4.5)
[2021-03-11] MEDS ORDERED: cefTRIAXone\\ROCEPHIN 1 GM in Sodium Chloride 0.9% 100 ML IVPB SCH (09:00)
[2021-03-11] MEDS: Apixaban 5 MG TAB PO SCH (09:46)
[2021-03-11] MEDS: Finasteride 5 MG TAB PO SCH (09:46)
[2021-03-11] MEDS: Digoxin 0.125 MG TAB PO SCH (09:46)
[2021-03-11] MEDS: Furosemide 20 MG TAB PO SCH (09:46)
[2021-03-11] MEDS ORDERED: Carvedilol 3.125 MG TAB PO SCH ×2 (11:00→21:00)
[2021-03-11 15:38] VITALS: BP 99/57; TEMP 97.6
== END 2021-03-11 16:00 | disposition home or self-care (01) | DRG 69 ==
LOC: ERS 23:36 → INTOOBSV 03-09 02:22 → 2SE 03-09 02:22 → OBSVTOIN 03-10 13:01
PROVIDERS: ADMIT Hospitalist; ATTEND Hospitalist
DX: G45.9 Transient cerebral ischemic attack, unspecified (principal); I47.2 Ventricular tachycardia; I50.22 Chronic systolic (congestive) heart failure; J96.11 Chronic respiratory failure with hypoxia; J44.1 Chronic obstructive pulmonary disease with (acute) exacerbation; I48.21 Permanent atrial fibrillation; Z20.822 Contact with and (suspected) exposure to COVID-19; I25.5 Ischemic cardiomyopathy; R29.818 Other symptoms and signs involving the nervous system; I48.0 Paroxysmal atrial fibrillation; I10 Essential (primary) hypertension; F17.210 Nicotine dependence, cigarettes, uncomplicated; N40.0 Benign prostatic hyperplasia without lower urinary tract symptoms; M19.90 Unspecified osteoarthritis, unspecified site; G93.89 Other specified disorders of brain; E78.5 Hyperlipidemia, unspecified; K21.9 Gastro-esophageal reflux disease without esophagitis; D69.6 Thrombocytopenia, unspecified; Z96.653 Presence of artificial knee joint, bilateral; Z79.01 Long term (current) use of anticoagulants; Z95.810 Presence of automatic (implantable) cardiac defibrillator; Z99.81 Dependence on supplemental oxygen; Z91.14 Patient's other noncompliance with medication regimen; I25.10 Atherosclerotic heart disease of native coronary artery without angina pectoris
CPT/HCPCS: 36415; 36416; 70450; 71045; 80048; 80053; 80061; 81003; 81015; 83735; 84484; 85025; 87635; 93005; 93010; 93306; 93880; 94640; 95712; 95819; 95957; 96374; 96376; G0378; J0696; J1160; J2920; J3490; J7620; U0003; U0005

== ENCOUNTER 2021-03-21 20:04 | Emergency (ER) | payer MEDICARE, BC ==
[2021-03-21 21:18] LABS: Hemoglobin 12.6 g/dL (14.0-18.0); Mean Corpuscular HGB CONC 32.6 g/dL (32.0-36.0); Mean Corpuscular Volume 95.1 fL (78.0-98.0); RBC Distribution Width 12.9 % (11.5-14.5); Red Blood Cell (RBC) Count 4.05 mill/uL (4.70-6.10)
[2021-03-21 21:32] LABS: ALT (SGPT) 13 U/L (8-55); AST (SGOT) 19 U/L (5-34); Albumin 3.7 g/dL (3.4-4.8); Alkaline Phosphatase 88 U/L (40-110); Anion Gap 15 mmol/L (10-20); BUN (Urea Nitrogen) 12 mg/dL (8.4-25.7); Bilirubin, Total 0.7 mg/dL (0.2-1.2); CK (CPK) 41 U/L (30-200); Calc. Creatinine Clearance 0 mL/min (70-130); Calcium 8.6 mg/dL (7.8-10.44); Carbon Dioxide 22 mmol/L (23-31); Chloride 107 mmol/L (98-107); Globulin 2.9 g/dL (2.4-3.5); Glucose 94 mg/dL (83-110); Potassium 4.2 mmol/L (3.5-5.1); Protein, Total 6.6 g/dL (5.8-8.1); Sodium 140 mmol/L (136-145)
[2021-03-21 21:44] LABS: #Eosinphils 0.3 thou/uL (0.0-0.7); #Lymphocytes 2.4 thou/uL (1.20-3.40); #Monocytes 0.8 thou/uL (0.11-0.59); #Neutrophils 5.5 thou/uL (1.40-6.50); %Basophils 0.3 % (0.0-1.0); %Eosinophils 3.6 % (0.0-10.0); %Lymphocytes 26.5 % (21.0-51.0); %Monocytes 8.6 % (0.0-10.0); %Neutrophils 60.9 % (42.0-75.0); Mean Platelet Volume 11.1 fL (7.4-10.4); Platelet Count 118 thou/uL (130-400); Platelet Morphology Comment Appears Decreased
[2021-03-21 21:49] LABS: CKMB 1.3 ng/mL (0-6.6)
[2021-03-21 22:10] LABS: Bilirubin Negative (Negative); Blood, Urine Negative (Negative); Clarity Clear (Clear); Glucose, Urine (Dipstick) Normal (Negative); Ketone, Urine Negative (Negative); Leukocyte Negative Leu/uL (Negative); Nitrite Negative (Negative); Protein, Urine (Dipstick) Negative (Neg-Trace); Specific Gravity, Urine 1.012 (1.002-1.036); Urobilinogen Normal mg/dL (Less than 2)
[2021-03-21] MEDS ORDERED: methylPREDNISolone Sod Succ/PF 125 MG/2 ML VIAL ONE (22:16)
[2021-03-21] MEDS ORDERED: Albuterol 200 PUFF (6.7GM INHALER) ONE (22:25)
[2021-03-21] MEDS ORDERED: methylPREDNISolone Sod Succ 40 MG VIAL IVP SCH (22:30)
[2021-03-21] MEDS ORDERED: Bacteriostatic Water 30 ML VIAL FS PRN (22:30)
[2021-03-22 01:03] LABS: Troponin I 0.032 ng/mL (< 0.028)
== END 2021-03-22 16:25 | disposition home or self-care (01) ==
LOC: ERS 20:04
DX: R53.1 Weakness (principal); I48.91 Unspecified atrial fibrillation; J44.9 Chronic obstructive pulmonary disease, unspecified; I50.9 Heart failure, unspecified; F17.210 Nicotine dependence, cigarettes, uncomplicated; Z86.73 Personal history of transient ischemic attack (TIA), and cerebral infarction without residual deficits
CPT/HCPCS: 36415; 51702; 71045; 80053; 81003; 82550; 82553; 83605; 84484; 85025; 87040; 93005; 96374; J2930

== ENCOUNTER 2021-04-15 14:19 | Emergency (ER) | payer MEDICARE, BC ==
[2021-04-15 15:08] LABS: #Basophils 0.1 thou/uL (0.0-0.2); #Eosinphils 0.5 thou/uL (0.0-0.7); #Lymphocytes 2.2 thou/uL (1.20-3.40); #Monocytes 0.5 thou/uL (0.11-0.59); #Neutrophils 3.9 thou/uL (1.40-6.50); %Basophils 1.1 % (0.0-1.0); %Eosinophils 6.3 % (0.0-10.0); %Lymphocytes 30.5 % (21.0-51.0); %Monocytes 7.5 % (0.0-10.0); %Neutrophils 54.6 % (42.0-75.0); Hemoglobin 13.7 g/dL (14.0-18.0); Mean Corpuscular HGB CONC 33.6 g/dL (32.0-36.0); Mean Corpuscular Hemoglobin 31.2 pg (27.0-31.0); Mean Platelet Volume 11.7 fL (7.4-10.4); Platelet Count 96 thou/uL (130-400); RBC Distribution Width 12.4 % (11.5-14.5); Red Blood Cell (RBC) Count 4.39 mill/uL (4.70-6.10); White Blood Cell (WBC) Count 7.2 thou/uL (4.8-10.8)
[2021-04-15 15:24] LABS: ALT (SGPT) 10 U/L (8-55); AST (SGOT) 18 U/L (5-34); Albumin 3.9 g/dL (3.4-4.8); Alkaline Phosphatase 108 U/L (40-110); Anion Gap 13 mmol/L (10-20); BUN (Urea Nitrogen) 13 mg/dL (8.4-25.7); Bilirubin, Total 0.9 mg/dL (0.2-1.2); Calc. Creatinine Clearance 0 mL/min (70-130); Calcium 8.6 mg/dL (7.8-10.44); Carbon Dioxide 25 mmol/L (23-31); Chloride 105 mmol/L (98-107); Globulin 2.8 g/dL (2.4-3.5); Glucose 105 mg/dL (83-110); Potassium 4.2 mmol/L (3.5-5.1); Protein, Total 6.7 g/dL (5.8-8.1); Sodium 139 mmol/L (136-145)
[2021-04-15 17:03] LABS: Bacteria/HPF 3+ HPF (None Seen); Bilirubin Negative (Negative); Blood, Urine 2+ (Negative); Clarity Extra Turbid (Clear); Glucose, Urine (Dipstick) Normal (Negative); Ketone, Urine Negative (Negative); Leukocyte 500 Leu/uL (Negative); Nitrite 2+ (Negative); Protein, Urine (Dipstick) 30 mg/dL (Neg-Trace); Specific Gravity, Urine 1.022 (1.002-1.036); Squamous Epithelial None Seen HPF (0-3); Urobilinogen Normal mg/dL (Less than 2); WBC/HPF Greater than 50 HPF (0-3)
== END 2021-04-15 17:32 | disposition home or self-care (01) ==
LOC: ERS 14:19
DX: R62.51 Failure to thrive (child) (principal); F32.9 Major depressive disorder, single episode, unspecified; I48.91 Unspecified atrial fibrillation; I63.9 Cerebral infarction, unspecified; I50.9 Heart failure, unspecified; F17.210 Nicotine dependence, cigarettes, uncomplicated
CPT/HCPCS: 36415; 71045; 80053; 81003; 81015; 83605; 83690; 83880; 84484; 85025; 87040; 93005

== ENCOUNTER 2021-07-30 11:48 | Inpatient (IN) | payer MEDICARE, BC ==
[2021-07-30 13:26] LABS: #Eosinphils 0.1 thou/uL (0.0-0.7); #Lymphocytes 1.1 thou/uL (1.20-3.40); #Monocytes 0.9 thou/uL (0.11-0.59); #Neutrophils 9.5 thou/uL (1.40-6.50); %Basophils 0.1 % (0.0-1.0); %Eosinophils 0.8 % (0.0-10.0); %Lymphocytes 9.6 % (21.0-51.0); %Monocytes 7.8 % (0.0-10.0); %Neutrophils 81.7 % (42.0-75.0); Hemoglobin 13.5 g/dL (14.0-18.0); Mean Corpuscular HGB CONC 33.5 g/dL (32.0-36.0); Mean Corpuscular Volume 95.3 fL (78.0-98.0); Mean Platelet Volume 10.9 fL (7.4-10.4); Platelet Count 161 thou/uL (130-400); RBC Distribution Width 12.4 % (11.5-14.5); Red Blood Cell (RBC) Count 4.24 mill/uL (4.70-6.10); White Blood Cell (WBC) Count 11.6 thou/uL (4.8-10.8)
[2021-07-30] MEDS ORDERED: Bacitracin 1 PK ONE (13:28)
[2021-07-30] MEDS ORDERED: Boostrix 0.5 ML (Tdap) VIAL ONE (13:35)
[2021-07-30 13:50] LABS: ALT (SGPT) 21 U/L (8-55); AST (SGOT) 28 U/L (5-34); Albumin 3.5 g/dL (3.4-4.8); Alkaline Phosphatase 105 U/L (40-110); Anion Gap 13 mmol/L (10-20); BUN (Urea Nitrogen) 11 mg/dL (8.4-25.7); Bilirubin, Total 1.2 mg/dL (0.2-1.2); CK (CPK) 394 U/L (30-200); CRP (Inflammatory) 10.57 mg/dL (= or < 0.5); Calc. Creatinine Clearance 0 mL/min (70-130); Calcium 8.5 mg/dL (7.8-10.44); Carbon Dioxide 30 mmol/L (23-31); Chloride 96 mmol/L (98-107); Globulin 2.9 g/dL (2.4-3.5); Glucose 126 mg/dL (83-110); Potassium 3.9 mmol/L (3.5-5.1); Protein, Total 6.4 g/dL (5.8-8.1); Sodium 135 mmol/L (136-145)
[2021-07-30 14:08] LABS: CKMB 1.7 ng/mL (0-6.6)
[2021-07-30] MEDS ORDERED: Cefepime 2 GM VIAL ONE (15:17)
[2021-07-30] MEDS ORDERED: Iopamidol-370 76% 500 ML 1 ML ONE (15:25)
[2021-07-30] MEDS ORDERED: Docusate 100 MG CAP PO PRN (15:43)
[2021-07-30] MEDS ORDERED: guaiFENesin 200 MG TAB PO PRN (15:43)
[2021-07-30] MEDS ORDERED: Albuterol Sulfate 2.5 mg/3 ml Neb NEB PRN (15:44)
[2021-07-30] MEDS ORDERED: traMADol HCl 50 MG TAB PO PRN (15:51)
[2021-07-30] MEDS ORDERED: Acetaminophen 325 MG TAB PO PRN (16:00)
[2021-07-30] MEDS ORDERED: Acetaminophen 650 MG Suppository PR PRN (16:00)
[2021-07-30] MEDS ORDERED: Ondansetron ODT 4 MG TAB PO PRN (16:00)
[2021-07-30] MEDS ORDERED: Ondansetron PF 4 MG/2 ML Vial IVP PRN (16:00)
[2021-07-30 16:02] LABS: SARS-CoV-2 NAA Rapid Test Not Detected (NotDetected)
[2021-07-30] MEDS ORDERED: Nitroglycerin 0.4 MG TAB (25 Tab Bottle) SL PRN (16:08)
[2021-07-30] MEDS ORDERED: Pharmacy to Dose REMDESIVIR IVPB PRN (16:29)
[2021-07-30] MEDS ORDERED: Dexamethasone 4 mg/ml Vial SLOW IVP SCH ×2 (16:30→21:00)
[2021-07-30] MEDS ORDERED: Furosemide 20 MG/2 ML VIAL SLOW IVP SCH (16:30)
[2021-07-30 16:34] LABS: Lactic Acid 2.4 mmol/L (0.5-2.2)
[2021-07-30 16:43] LABS: Troponin I 0.067 ng/mL (< 0.028)
[2021-07-30] MEDS ORDERED: VANCOMYCIN 1.75 GM/350 ML BAG 1.75 GM in Premix Bag 1 BAG IVPB SCH (18:30)
[2021-07-30 18:46] LABS: Troponin I 0.083 ng/mL (< 0.028)
[2021-07-30 20:14] LABS: Bilirubin Negative (Negative); Blood, Urine Trace (Negative); Clarity Clear (Clear); Glucose, Urine (Dipstick) Normal (Negative); Ketone, Urine Negative (Negative); Leukocyte Negative Leu/uL (Negative); Nitrite Negative (Negative); Protein, Urine (Dipstick) Negative (Neg-Trace); Specific Gravity, Urine 1.021 (1.002-1.036); Squamous Epithelial 0-3 HPF (0-3); Urobilinogen 3 mg/dL (Less than 2); pH, Urine 6.5 (5.0-9.0)
[2021-07-30 20:21] LABS: Bacteria/HPF Rare-Few HPF (None Seen); Urine Culture Reflex Yes Yes
[2021-07-30 20:24] LABS: Strep pneumo Urine Ag NEGATIVE (NEGATIVE)
[2021-07-30 20:26] LABS: Legionella Urinary Ag Negative (Negative)
[2021-07-30] MEDS: Apixaban 5 MG TAB PO SCH (20:32)
[2021-07-30] MEDS ORDERED: Vancomycin HCl 1,000 GM in Sodium Chloride 0.9% 250 ML 250 ML IVPB SCH (21:00)
[2021-07-30] MEDS: methylPREDNISolone Sod Succ 40 MG VIAL IVP SCH (23:39)
[2021-07-30] MEDS ORDERED: methylPREDNISolone Sod Succ/PF 125 MG/2 ML VIAL IVP SCH (23:59)
[2021-07-31] MEDS: Cefepime 1 GM in Sodium Chloride 0.9% 100 ML IVPB SCH ×2 (03:25→13:54)
[2021-07-31 05:32] LABS: #Lymphocytes 0.7 thou/uL (1.20-3.40); #Monocytes 0.1 thou/uL (0.11-0.59); #Neutrophils 12.1 thou/uL (1.40-6.50); %Eosinophils 0.1 % (0.0-10.0); %Lymphocytes 5.6 % (21.0-51.0); %Monocytes 0.9 % (0.0-10.0); %Neutrophils 93.4 % (42.0-75.0); Hemoglobin 12.8 g/dL (14.0-18.0); Mean Corpuscular HGB CONC 32.6 g/dL (32.0-36.0); Mean Corpuscular Volume 95.1 fL (78.0-98.0); Mean Platelet Volume 11.3 fL (7.4-10.4); Platelet Count 161 thou/uL (130-400); RBC Distribution Width 12.4 % (11.5-14.5); Red Blood Cell (RBC) Count 4.12 mill/uL (4.70-6.10)
[2021-07-31 05:56] LABS: Anion Gap 15 mmol/L (10-20); BUN (Urea Nitrogen) 14 mg/dL (8.4-25.7); Calc. Creatinine Clearance 65 mL/min (70-130); Calcium 8.2 mg/dL (7.8-10.44); Carbon Dioxide 27 mmol/L (23-31); Chloride 100 mmol/L (98-107); Glucose 153 mg/dL (83-110); Sodium 138 mmol/L (136-145)
[2021-07-31] MEDS: methylPREDNISolone Sod Succ 40 MG VIAL IVP SCH ×3 (05:57→19:35)
[2021-07-31] MEDS: Furosemide 20 MG/2 ML VIAL SLOW IVP SCH ×2 (06:06→13:54)
[2021-07-31] MEDS ORDERED: Zinc Sulfate 220 MG CAP PO SCH (09:00)
[2021-07-31] MEDS ORDERED: Ascorbic Acid 500 mg Chewable Tablet PO SCH (09:00)
[2021-07-31] MEDS ORDERED: Cholecalciferol (Vitamin D3) 400 UNITS TAB PO SCH (09:00)
[2021-07-31] MEDS: Polyethylene Glycol 3350 17 GM Packet PO SCH (11:02)
[2021-07-31] MEDS: Apixaban 5 MG TAB PO SCH ×2 (11:02→19:38)
[2021-07-31] MEDS ORDERED: Vancomycin 1.5 GRAM/300 ML BAG 1.5 GM in Premix Bag 1 BAG IVPB SCH (18:30)
[2021-07-31] MEDS: Benzonatate 100 MG CAP PO PRN (21:17)
[2021-08-01] MEDS: methylPREDNISolone Sod Succ 40 MG VIAL IVP SCH ×4 (00:33→17:45)
[2021-08-01] MEDS: Cefepime 1 GM in Sodium Chloride 0.9% 100 ML IVPB SCH ×2 (04:04→14:08)
[2021-08-01] MEDS: Benzonatate 100 MG CAP PO PRN ×3 (04:11→21:20)
[2021-08-01] MEDS: Furosemide 20 MG/2 ML VIAL SLOW IVP SCH ×3 (06:10→14:09)
[2021-08-01 08:42] LABS: Anion Gap 11 mmol/L (10-20); BUN (Urea Nitrogen) 20 mg/dL (8.4-25.7); Calc. Creatinine Clearance 65 mL/min (70-130); Calcium 8.2 mg/dL (7.8-10.44); Carbon Dioxide 29 mmol/L (23-31); Chloride 98 mmol/L (98-107); Glucose 205 mg/dL (83-110); Potassium 3.9 mmol/L (3.5-5.1); Sodium 134 mmol/L (136-145)
[2021-08-01] MEDS: Polyethylene Glycol 3350 17 GM Packet PO SCH (08:42)
[2021-08-01] MEDS: Apixaban 5 MG TAB PO SCH ×2 (08:42→21:20)
[2021-08-01 09:00] LABS: Band 7 % (5-11); Lymphocytes 7 % (21-51); MDiff Complete? YES; Mean Corpuscular HGB CONC 33.5 g/dL (32.0-36.0); Mean Corpuscular Hemoglobin 31.5 pg (27.0-31.0); Mean Platelet Volume 10.8 fL (7.4-10.4); Monocytes 2 % (0-10); Neutrophil 84 % (42-75); Platelet Count 180 thou/uL (130-400); Platelet Morphology Comment Appears Adequate; RBC Distribution Width 12.3 % (11.5-14.5); RBC Morphology Normal; White Blood Cell (WBC) Count 22.7 thou/uL (4.8-10.8)
[2021-08-01] MEDS ORDERED: Vancomycin HCl 1.5 GM in Sodium Chloride 0.9% 250 ML 300 ML IVPB SCH (18:30)
[2021-08-01] MEDS ORDERED: Chloraseptic Spray 180 ml Bottle PO PRN (19:34)
[2021-08-01] MEDS: Cefdinir 300 MG CAP PO SCH (21:20)
[2021-08-02 05:52] LABS: Band 18 % (5-11); Hemoglobin 11.6 g/dL (14.0-18.0); Lymphocytes 1 % (21-51); MDiff Complete? YES; Mean Corpuscular HGB CONC 32.7 g/dL (32.0-36.0); Mean Corpuscular Hemoglobin 30.9 pg (27.0-31.0); Mean Corpuscular Volume 94.5 fL (78.0-98.0); Mean Platelet Volume 10.5 fL (7.4-10.4); Neutrophil 81 % (42-75); Platelet Count 198 thou/uL (130-400); Platelet Morphology Comment Appears Adequate; RBC Distribution Width 12.3 % (11.5-14.5); Red Blood Cell (RBC) Count 3.76 mill/uL (4.70-6.10); White Blood Cell (WBC) Count 20.2 thou/uL (4.8-10.8)
[2021-08-02 05:57] LABS: Anion Gap 15 mmol/L (10-20); BUN (Urea Nitrogen) 21 mg/dL (8.4-25.7); Calc. Creatinine Clearance 65 mL/min (70-130); Calcium 8.3 mg/dL (7.8-10.44); Carbon Dioxide 29 mmol/L (23-31); Chloride 97 mmol/L (98-107); Glucose 181 mg/dL (83-110); Magnesium 2.1 mg/dL (1.6-2.6); Potassium 4.1 mmol/L (3.5-5.1); Sodium 137 mmol/L (136-145)
[2021-08-02] MEDS: Furosemide 20 MG TAB PO SCH ×2 (11:42→14:27)
[2021-08-02] MEDS: Polyethylene Glycol 3350 17 GM Packet PO SCH (11:42)
[2021-08-02] MEDS: Cefdinir 300 MG CAP PO SCH ×2 (11:42→20:43)
[2021-08-02] MEDS: Apixaban 5 MG TAB PO SCH ×2 (11:42→20:43)
[2021-08-02] MEDS: predniSONE 20 MG TAB PO SCH (11:43)
[2021-08-02] MEDS ORDERED: Amiodarone 200 MG TAB PO SCH (15:15)
[2021-08-02] MEDS ORDERED: Carvedilol 3.125 MG TAB PO SCH (15:30)
[2021-08-02] MEDS ORDERED: Amiodarone 150 MG, Admixture Fee 1 EACH in Dextrose 5% in Water 100 ML IVPB SCH (17:00)
[2021-08-02] MEDS: Amiodarone 450 MG, Admixture Fee 1 EACH in Dextrose 5% in Water 250 ML IVPB SCH (17:34)
[2021-08-02] MEDS: Carvedilol 3.125 MG TAB PO SCH (20:43)
[2021-08-03 05:52] LABS: Anion Gap 11 mmol/L (10-20); BUN (Urea Nitrogen) 20 mg/dL (8.4-25.7); Calc. Creatinine Clearance 80 mL/min (70-130); Calcium 7.7 mg/dL (7.8-10.44); Carbon Dioxide 31 mmol/L (23-31); Chloride 101 mmol/L (98-107); Glucose 136 mg/dL (83-110); Magnesium 2.1 mg/dL (1.6-2.6); Potassium 4.3 mmol/L (3.5-5.1); Sodium 139 mmol/L (136-145)
[2021-08-03] MEDS: Amiodarone 450 MG, Admixture Fee 1 EACH in Dextrose 5% in Water 250 ML IVPB SCH (07:36)
[2021-08-03] MEDS ORDERED: Vancomycin 1 GM in Premix Bag 1 BAG IVPB SCH (09:00)
[2021-08-03] MEDS ORDERED: Amiodarone 200 MG TAB PO SCH (09:00)
[2021-08-03] MEDS: Amiodarone 200 MG TAB PO SCH ×2 (09:23→20:53)
[2021-08-03] MEDS: metroNIDAZOLE 500 MG TAB PO SCH ×3 (09:23→20:53)
[2021-08-03] MEDS: VANCOMYCIN 1.25 GM/250 ML BAG 1.25 GM in Premix Bag 1 BAG IVPB SCH ×2 (09:23→20:53)
[2021-08-03] MEDS: Apixaban 5 MG TAB PO SCH ×2 (09:23→20:53)
[2021-08-03] MEDS: predniSONE 20 MG TAB PO SCH (09:23)
[2021-08-03] MEDS: Carvedilol 3.125 MG TAB PO SCH ×2 (09:23→20:53)
[2021-08-03] MEDS: Polyethylene Glycol 3350 17 GM Packet PO SCH (09:23)
[2021-08-03] MEDS: Ciprofloxacin 500 MG TAB PO SCH (20:53)
[2021-08-04] MEDS: Ciprofloxacin 500 MG TAB PO SCH (05:17)
[2021-08-04 07:47] VITALS: TEMP 96.7
[2021-08-04 08:18] LABS: Anion Gap 9 mmol/L (10-20); BUN (Urea Nitrogen) 18 mg/dL (8.4-25.7); Calc. Creatinine Clearance 90 mL/min (70-130); Calcium 8.1 mg/dL (7.8-10.44); Carbon Dioxide 31 mmol/L (23-31); Chloride 103 mmol/L (98-107); Glucose 94 mg/dL (83-110); Magnesium 2.2 mg/dL (1.6-2.6); Potassium 3.8 mmol/L (3.5-5.1); Sodium 139 mmol/L (136-145)
[2021-08-04] MEDS: Carvedilol 3.125 MG TAB PO SCH (08:47)
[2021-08-04] MEDS: Apixaban 5 MG TAB PO SCH (08:47)
[2021-08-04] MEDS: Amiodarone 200 MG TAB PO SCH (08:47)
[2021-08-04] MEDS: metroNIDAZOLE 500 MG TAB PO SCH ×2 (08:47→14:30)
[2021-08-04] MEDS: VANCOMYCIN 1.25 GM/250 ML BAG 1.25 GM in Premix Bag 1 BAG IVPB SCH (08:48)
[2021-08-04] MEDS: Polyethylene Glycol 3350 17 GM Packet PO SCH (08:48)
[2021-08-04] MEDS: predniSONE 20 MG TAB PO SCH (09:30)
[2021-08-04 10:27] VITALS: BMI 21.4
[2021-08-04 11:50] VITALS: BP 105/60
[2021-08-04 13:07] LABS: #Eosinphils 0.1 thou/uL (0.0-0.7); #Lymphocytes 1.7 thou/uL (1.20-3.40); #Monocytes 1.2 thou/uL (0.11-0.59); #Neutrophils 12.1 thou/uL (1.40-6.50); %Eosinophils 0.7 % (0.0-10.0); %Lymphocytes 11.5 % (21.0-51.0); %Monocytes 7.6 % (0.0-10.0); %Neutrophils 80.1 % (42.0-75.0); Hemoglobin 11.2 g/dL (14.0-18.0); Mean Corpuscular HGB CONC 31.6 g/dL (32.0-36.0); Mean Corpuscular Hemoglobin 30.8 pg (27.0-31.0); Mean Corpuscular Volume 97.3 fL (78.0-98.0); Mean Platelet Volume 9.5 fL (7.4-10.4); Platelet Count 201 thou/uL (130-400); RBC Distribution Width 12.7 % (11.5-14.5); Red Blood Cell (RBC) Count 3.65 mill/uL (4.70-6.10); White Blood Cell (WBC) Count 15.1 thou/uL (4.8-10.8)
[2021-08-05] MEDS ORDERED: predniSONE 5 MG TAB PO SCH (08:00)
== END 2021-08-04 15:15 | DRG 853 ==
LOC: ERS 11:48 → 2NO 15:22
PROVIDERS: ADMIT Internal Medicine; ATTEND Internal Medicine
PROC: 0JB70ZZ Excision of Back Subcutaneous Tissue and Fascia, Open Approach (ICD-10-PCS; principal; 2021-08-02)
PROC: 4B02XTZ Measurement of Cardiac Defibrillator, External Approach (ICD-10-PCS; 2021-08-03)
DX: A41.9 Sepsis, unspecified organism (principal); J96.21 Acute and chronic respiratory failure with hypoxia; Z20.822 Contact with and (suspected) exposure to COVID-19; Z23 Encounter for immunization; J69.0 Pneumonitis due to inhalation of food and vomit; I50.43 Acute on chronic combined systolic (congestive) and diastolic (congestive) heart failure; I42.8 Other cardiomyopathies; I47.2 Ventricular tachycardia; L89.150 Pressure ulcer of sacral region, unstageable; N40.0 Benign prostatic hyperplasia without lower urinary tract symptoms; D64.9 Anemia, unspecified; I11.0 Hypertensive heart disease with heart failure; F17.210 Nicotine dependence, cigarettes, uncomplicated; G89.29 Other chronic pain; M54.9 Dorsalgia, unspecified; J43.9 Emphysema, unspecified; H40.9 Unspecified glaucoma; Z96.653 Presence of artificial knee joint, bilateral; I44.7 Left bundle-branch block, unspecified; E78.2 Mixed hyperlipidemia; K21.00 Gastro-esophageal reflux disease with esophagitis, without bleeding; I48.0 Paroxysmal atrial fibrillation; E78.00 Pure hypercholesterolemia, unspecified; R79.89 Other specified abnormal findings of blood chemistry; Z99.81 Dependence on supplemental oxygen; Z95.810 Presence of automatic (implantable) cardiac defibrillator; Z86.73 Personal history of transient ischemic attack (TIA), and cerebral infarction without residual deficits; Z79.899 Other long term (current) drug therapy; Z79.01 Long term (current) use of anticoagulants; Z90.79 Acquired absence of other genital organ(s)
CPT/HCPCS: 0240U; 36415; 71045; 71275; 72193; 74230; 80048; 80053; 80202; 81001; 82550; 82553; 82728; 83605; 83735; 83880; 84145; 84484; 85025; 85379; 85652; 86140; 87040; 87070; 87076; 87086; 87205; 87449; 87899; 90715; 93005; 94640; J0282; J0692; J1100; J1940; J2920; J2930; J3370; J3490; J7050; J7070; J7512; J7620; Q9967